=== PATIENT | male | born 1930 | race Caucasian/White ===

== ENCOUNTER 2016-12-14 12:57 | Inpatient (IN) ==
--- NOTE | 2016-12-14 13:09 | Emergency Department Note ---
Disposition Clinical Impression: Hypertension Qualifiers: Hypertension type: essential hypertension Qualified Code(s): I10 - Essential ( primary) hypertension TIA (transient ischemic attack) Qualifiers: Transient cerebral ischemia type: unspecified Qualified Code(s): G45.9 - Transient cerebral ischemic attack, unspecified Disposition: Admitted As Inpatient Condition: Good Time of Disposition: 15:48 Neuro HPI - General Chief Complaint: ED Neuro Symptoms/Deficit Stated Complaint: Neuro symptoms, resolved Time Seen by Provider: 12/14/16 13:03 Source: patient Mode of arrival: ambulatory Limitations: no limitations Nursing Notes Reviewed: Yes Vital Signs Reviewed: Yes - History of Present Illness HPI Narrative: 86-year-old who comes in complaining of left hand numbness and weakness that began about 8:30 along with some vision changes on the left. He states he was seen at the NH started feeling better there and then on the way here and he was improved. Onset of Symptoms Date: 12/14/16 Onset of Symptoms Time: 08:30 Timing confirmed by: caregiver Location: left arm, other (Vision) History of same: No Severity: moderate Improves with: time On Anticoagulants: No - Related Data Home Medications: Home Medications Medication Instructions Recorded Confirmed Albuterol Sulfate [Albuterol 2 puff IH QID PRN 09/24/15 12/14/16 Inhaler] Aspirin Enteric Coated [Aspirin EC] 81 mg PO DAILY 09/24/15 12/14/16 Carboxymethylcellulose Sodium 1 drop BOTH EYES QID 09/24/15 12/14/16 [Refresh Plus] Furosemide [Lasix] 10 mg PO DAILY 09/24/15 12/14/16 Insulin Glargine [Lantus] 21 units SQ QAM 09/24/15 12/14/16 Omeprazole [PriLOSEC] 20 mg PO DAILY 09/24/15 12/14/16 Pyridoxine HCl [Vitamin B-6] 50 mg PO DAILY 09/24/15 12/14/16 Terazosin [Hytrin] 2 mg PO HS 09/24/15 12/14/16 Cholecalciferol (D-3) [Vitamin D] 2,000 unit PO DAILY 10/27/15 12/14/16 Methocarbamol [Robaxin] 500 mg PO TID PRN 10/27/15 12/14/16 Nitroglycerin [Nitrostat] 0.4 mg SL Q5M PRN 10/27/15 12/14/16 Polyethylene Glycol 3350 [MiraLAX 17 gm PO DAILY PRN 10/27/15 12/14/16 bowel prep] Albuterol Neb [Proventil Neb] 2.5 mg IH QID PRN 12/14/16 12/14/16 Carbidopa/Levodopa 10 [Sinemet 1 each PO HS 12/14/16 12/14/16 10] Docusate [Colace] 100 mg PO BID 12/14/16 12/14/16 Gabapentin [Neurontin] 400 mg PO BID 12/14/16 12/14/16 Gabapentin [Neurontin] 600 mg PO HS 12/14/16 12/14/16 Isosorbide MONOnitrate [Isosorbide 120 mg PO HS 12/14/16 12/14/16 Mononitrate ER] Lactose-Reduced Food [Ensure Plus] 1 bottle PO DAILY 12/14/16 12/14/16 Losartan Potassium [Cozaar] 50 mg PO DAILY 12/14/16 12/14/16 Metoprolol XL (24 HR) Succ [Toprol 25 mg PO DAILY 12/14/16 12/14/16 XL] Mupirocin [Bactroban Oint] 1 appl TP DAILY 12/14/16 12/14/16 Olodaterol HCl [Striverdi Respimat] 2 puff IH DAILY 12/14/16 12/14/16 Petrolatum,White [Aloe [place]] 1 appl TP BID 12/14/16 12/14/16 Allergies/Adverse Reactions: Allergies Allergy/AdvReac Type Severity Reaction Status Date / Time orphenadrine [From Norflex] Allergy Rash Verified 09/24/15 14:15 ropinirole AdvReac Unknown Verified 12/14/16 16:39 Constitutional: Denies: fever, chills, weakness, weight change Eyes: Denies: eye pain, eye discharge, vision change ENT ED: Denies: ear pain, throat pain, dental pain, hearing loss, epistaxis, congestion, dysphagia Cardiovascular: Denies: chest pain, palpitations, dyspnea on exertion, edema, syncope Respiratory: Denies: cough, dyspnea, wheezes, hemoptysis, stridor Gastrointestinal: Denies: abdominal pain, nausea, vomiting, diarrhea, constipation, hematemesis, melena, hematochezia Genitourinary: Denies: urgency, dysuria, frequency, hematuria Musculoskeletal: Denies: back pain, neck pain, arthralgia, myalgia Integumentary: Denies: rash, abrasion, lesions Neurological: Reports: weakness, numbness. Denies: headache, paresthesias, confusion, abnormal gait, vertigo Psychiatric: Denies: anxiety, depression, suicidal thoughts, homicidal thoughts , auditory hallucinations, visual hallucinations Endocrine: Denies: fatigue Hematological/Lymphatic: Denies: easy bleeding, easy bruising Allergic/Immunologic: Denies: facial swelling, urticaria Past Medical History - Past Medical History Medical history: Reports: COPD, diabetes, hyperlipidemia, hypertension, renal disease Surgical history: Reports: angioplasty/stent, cholecystectomy, pacemaker/AICD, other Psychiatric history: Reports: no psych history - Social History Smoking Status: Former smoker Smokeless Tobacco Status: Yes Alcohol use: Reports: none Drug use: Reports: none Physical Exam - General Limitations: no limitations General appearance: alert, in no apparent distress - Head Head exam: atraumatic, normocephalic, normal inspection - Eye Eye exam: Present: normal appearance, PERRL, EOMI - ENT ENT exam: normal exam, normal oropharynx, mucous membranes moist - Neck Neck exam: Present: normal inspection, full ROM, trachea midline - Chest Chest inspection: Present: normal inspection, symmetric chest wall rise - Respiratory Respiratory exam: Present: normal lung sounds bilaterally - Cardiovascular Cardiovascular exam: Present: regular rate, normal rhythm, normal heart sounds - Abdominal Exam Abdominal exam: Present: soft, Non-Tender. Absent: tenderness, distention, guarding, rebound, rigidity - Extremities Exam Extremities exam: Present: normal inspection, full ROM. Absent: tenderness, pedal edema - Expanded Lower Extremity Exam Neurovascular/Tendon exam: Absent: motor deficit, sensory deficit, tendon deficit Gait: not tested/not observed - Back Exam Back exam: Present: normal inspection, full ROM. Absent: tenderness - Neurological Exam Neurological exam: Present: alert, oriented X3. Absent: motor sensory deficit - Psychiatric Psychiatric exam: Present: normal affect, normal mood - Skin Skin exam: Present: warm, dry, intact, normal color Course - Reevaluation(s) Reevaluation #1: Patient had acute onset left arm weakness and numbness and also left visual changes resolved spontaneously. CT scan shows some chronic changes otherwise nothing acute. Appears to have had a TIA. We will admit. Time: 15:48 - Consultations Consultation #1: Status with Dr. Layne admit. Time: 15:48 Vital Signs Temperature 97.5 F L 12/14/16 13:01 Pulse Rate 61 12/14/16 13:01 Respiratory Rate 18 12/14/16 13:01 Blood Pressure 192/88 12/14/16 13:01 O2 Sat by Pulse Oximetry 98 12/14/16 13:01 Temperature 97.5 F L 12/14/16 13:01 Pulse Rate 62 12/14/16 17:11 Respiratory Rate 16 12/14/16 17:11 Blood Pressure 170/75 12/14/16 17:11 O2 Sat by Pulse Oximetry 96 12/14/16 17:11 Oxygen Delivery Oxygen Delivery Room Air Neuro Symptoms/Deficit - Lab Data Lab results reviewed: Yes I reviewed the patient's lab results. Result diagrams: 12/14/16 13:31 12/14/16 13:31 Lab Results 12/14/16 12/14/16 12/14/16 Range/Units 13:05 13:31 13:31 WBC 7.5 (4.3-11.1) K/mcL RBC 4.13 L (4.19-5.50) M/mcL Hgb 12.4 L (12.9-16.9) g/dL Hct 37.9 (37.5-50.1) % MCV 91.8 (83.0-100.0) fL MCH 30.0 (28.0-33.3) pg MCHC 32.7 (31.6-35.5) g/dL RDW 13.8 (11.5-14.5) % Plt Count 224 (140-400) K/mcL MPV 9.9 (9.4-12.4) fL Immature Gran % 0.7 (0-4) % Seg Neutrophils % 65.2 % Lymphocytes % 24.0 % Monocytes % 7.1 % Eosinophils % 2.1 % Basophils % 0.9 % Neutrophils # 4.9 (1.6-8.9) K/mcL Lymphocytes # 1.8 (0.6-4.6) K/mcL Monocytes # 0.5 (0.0-1.3) K/mcL Eosinophils # 0.2 (0.0-0.6) K/mcL Basophils # 0.1 (0.0-0.2) K/mcL PT 11.6 (9.4-12.1) Seconds INR 1.1 APTT 29.3 (26.0-36.0) Seconds Sodium (136-145) mEq/L Potassium (3.5-4.5) mEq/L Chloride (98-109) mEq/L Carbon Dioxide (19-29) mEq/L BUN (8-26) mg/dL Creatinine (0.72-1.25) mg/dL Est GFR ( Amer) (> 60) Est GFR (Non-Af Amer) (> 60) BUN/Creatinine Ratio (6-26) Glucose (70-99) mg/dL POC Glucose 196 H (58-89) Calculated Osmolality (280-300) Calcium (8.6-10.8) mg/dL Troponin I (0-0.03) ng/mL Urine Color (Yellow) Urine Clarity (Clear) Urine pH (5.0-8.0) pH Units Ur Specific [place] (1.010-1.025) Urine Protein (Neg-Trace) mg/dL Urine Glucose (UA) (Normal) mg/dL Urine Ketones (Negative) mg/dL Urine Blood (Negative) Urine Nitrite (Negative) Urine Bilirubin (Negative) Urine Urobilinogen (Normal) mg/dL Ur Leukocyte Esterase (Negative) Urine Microscopic RBC (0-3) per hpf Urine Microscopic WBC (0-3) per hpf Ur Squamous Epith Cells (None-Few) per lpf Urine Bacteria (None-Few) per hpf Hyaline Casts (None-Few) per lpf Ur Culture Indicated? (NO) 12/14/16 12/14/16 12/14/16 Range/Units 13:31 13:31 14:55 WBC (4.3-11.1) K/mcL RBC (4.19-5.50) M/mcL Hgb (12.9-16.9) g/dL Hct (37.5-50.1) % MCV (83.0-100.0) fL MCH (28.0-33.3) pg MCHC (31.6-35.5) g/dL RDW (11.5-14.5) % Plt Count (140-400) K/mcL MPV (9.4-12.4) fL Immature Gran % (0-4) % Seg Neutrophils % % Lymphocytes % % Monocytes % % Eosinophils % % Basophils % % Neutrophils # (1.6-8.9) K/mcL Lymphocytes # (0.6-4.6) K/mcL Monocytes # (0.0-1.3) K/mcL Eosinophils # (0.0-0.6) K/mcL Basophils # (0.0-0.2) K/mcL PT (9.4-12.1) Seconds INR APTT (26.0-36.0) Seconds Sodium 135 L (136-145) mEq/L Potassium 5.0 H (3.5-4.5) mEq/L Chloride 104 (98-109) mEq/L Carbon Dioxide 24 (19-29) mEq/L BUN 32 H (8-26) mg/dL Creatinine 2.39 H (0.72-1.25) mg/dL Est GFR ( Amer) 31 L (> 60) Est GFR (Non-Af Amer) 26 L (> 60) BUN/Creatinine Ratio 13 (6-26) Glucose 192 H (70-99) mg/dL POC Glucose (58-89) Calculated Osmolality 292 (280-300) Calcium 8.9 (8.6-10.8) mg/dL Troponin I 0.03 (0-0.03) ng/mL Urine Color Yellow (Yellow) Urine Clarity Clear (Clear) Urine pH 6.0 (5.0-8.0) pH Units Ur Specific [place] 1.010 (1.010-1.025) Urine Protein Trace (Neg-Trace) mg/dL Urine Glucose (UA) 100 H (Normal) mg/dL Urine Ketones Negative (Negative) mg/dL Urine Blood Negative (Negative) Urine Nitrite Negative (Negative) Urine Bilirubin Negative (Negative) Urine Urobilinogen Normal (Normal) mg/dL Ur Leukocyte Esterase Negative (Negative) Urine Microscopic RBC 0-3 (0-3) per hpf Urine Microscopic WBC 0-3 (0-3) per hpf Ur Squamous Epith Cells Moderate H (None-Few) per lpf Urine Bacteria None Seen (None-Few) per hpf Hyaline Casts None Seen (None-Few) per lpf Ur Culture Indicated? NO (NO) - Radiology Data Radiology results reviewed: Yes I reviewed the patient's radiology results. Chest X-Ray 12/14/16 13:05 IMPRESSION: No acute process. Mild pulmonary vascular congestion. D/ / 12/14/2016 13:35:21 Eri Malik MD / Liv Morris Interpreting Provider: Eri Malik MD Head CT 12/14/16 13:50 IMPRESSION: 1. Global atrophy with chronic small vessel ischemic changes and intracranial atherosclerosis. 2. No acute intracranial abnormality. D/ / 12/14/2016 15:23:48 Steven Juárez MD / Liv Morris Interpreting Provider: Steven Juárez MD - EKG Data EKG attestation: Yes I reviewed and interpreted this EKG. EKG results narrative: Paced rhythm NIH Stroke Scale - Level of Consciousness LOC: Alert - LOC Questions LOC Questions: Answers both correctly - LOC Commands LOC Commands: Performs both correctly - Best Gaze Best Gaze: Normal - Visual Visual: No visual loss - Facial Palsy Facial Palsy: Normal - Motor Arms Motor Arm-Left: No drift for 10 seconds Motor Arm-Right: No drift for 10 seconds - Motor Legs Motor Leg-Left: No drift for 5 seconds Motor Leg-Right: No drift for 5 seconds - Limb Ataxia Limb Ataxia: Normal, No Ataxia - Sensory Sensory: Normal - Best Language Best Language: No aphasia - Dysarthria Dysarthria: Normal - Extinction and Inattention Extinction and Inattention: Normal - NIHSS Total Score NIHSS Total Score: 0 TPA Checklist - Eligibilty for IV tPA 1. LKW equal to or less than 4.5 hours be before treatment: No - LKW: 3-4.5 hrs Add. Contraindications Patient/family understanding: The patient/family members have been counseled and understood the risk, benefit , and alternatives of treatment.
[2016-12-14 13:39] LABS: Basophils # 0.1 K/mcL (0.0-0.2); Basophils % 0.9 %; Eosinophils # 0.2 K/mcL (0.0-0.6); Eosinophils % 2.1 %; Hematocrit 37.9 % (37.5-50.1); Hemoglobin 12.4 g/dL (12.9-16.9); Immature Granulocytes % 0.7 % (0-4); Lymphocytes # 1.8 K/mcL (0.6-4.6); Mean Corpuscular HGB Conc 32.7 g/dL (31.6-35.5); Mean Corpuscular Volume 91.8 fL (83.0-100.0); Mean Platelet Volume 9.9 fL (9.4-12.4); Monocytes # 0.5 K/mcL (0.0-1.3); Monocytes % 7.1 %; Neutrophils # 4.9 K/mcL (1.6-8.9); Platelet Count 224 K/mcL (140-400); Red Blood Count 4.13 M/mcL (4.19-5.50); Red Cell Distribution Width 13.8 % (11.5-14.5); Segmented Neutrophils % 65.2 %
[2016-12-14 13:49] LABS: INR 1.1; Prothrombin Time 11.6 Seconds (9.4-12.1)
[2016-12-14 13:50] LABS: Calcium 8.9 mg/dL (8.6-10.8)
[2016-12-14 13:52] LABS: Activated Partial Thrombo Time 29.3 Seconds (26.0-36.0)
[2016-12-14 15:02] LABS: Bilirubin,Urine Negative (Negative); Blood,Urine Negative (Negative); Clarity,Urine Clear (Clear); Color,Urine Yellow (Yellow); Glucose,Urine (UA) 100 mg/dL (Normal); Ketones,Urine Negative (Negative); Leukocyte Esterase,Urine Negative (Negative); Nitrite,Urine Negative (Negative); Protein,Urine Trace mg/dL (Neg-Trace); Urobilinogen,Urine Normal (Normal)
[2016-12-14 15:04] LABS: Bacteria,Urine None Seen per hpf (None-Few); Hyaline Casts,Urine None Seen per lpf (None-Few); RBC,Urine 0-3 per hpf (0-3); Squamous Epithelial Cell,Urine Moderate per lpf (None-Few); WBC,Urine 0-3 per hpf (0-3)
[2016-12-14] MEDS ORDERED: Ondansetron 4 MG/2 ML VIAL IVP PRN (17:27)
[2016-12-14] MEDS ORDERED: Acetaminophen 325 MG TABLET PO PRN (17:27)
[2016-12-14] MEDS ORDERED: Naloxone 0.4 MG/ML INJ IVP PRN (17:27)
[2016-12-14] MEDS ORDERED: Polyethylene Glycol 3350 255 GM POWDER PO PRN (17:31)
[2016-12-14] MEDS ORDERED: Dextrose Gel 15 GM PO PRN ×2 (17:36)
[2016-12-14] MEDS ORDERED: *HR* Dextrose 50 % in Water (Syg) 50 ML SYRINGE IVP PRN (17:36)
[2016-12-14] MEDS ORDERED: D5% in Water 1,000 ML IV PRN (17:36)
[2016-12-14] MEDS ORDERED: traMADol 50 MG TABLET PO STA (17:44)
[2016-12-14] MEDS ORDERED: Furosemide 20 MG/2 ML VIAL IVP ONE (17:58)
--- NOTE | 2016-12-14 18:00 | Internal Med History&Physical ---
Date of Encounter: 12/14/16 Time of Encounter: 15:30 Assessment and Plan (1) TIA (transient ischemic attack) Current visit: Yes Status: Acute Around 8:30 AM, he was trying to reach his wheelchair with his left arm when he suddenly noticed some numbness and tingling as on his left hand followed by left arm weakness. He reported that his left arm just went numb and he couldn' t move it. His left arm weakness lasted for about 10 minutes and never came back. By the time he got to [place] ER he was completely asymptomatic. Patient risk due to history of bilateral carotid endarterectomy. CT of the head revealed atrophy with chronic small vessel ischemic changes and intracranial atherosclerosis. Acute intracranial abnormality. EKG shows ventricular paced rhythm, rate 72. Troponin 0.02. Echocardiogram in February 2016 revealed LVEF 50%, moderate diastolic dysfunction, severe pulmonary hypertension. In our ED, blood pressure was 192/88. Patient is not a candidate for MRI of brain due to pacemaker. He has CKD stage IV and cannot undergo CTA of head and neck. Continue library monitor. Neuro assessment. Aspirin. Statin. Check echocardiogram. Check Doppler of carotids. IV hydralazine if Blood pressure above 220/110 Qualifiers: Transient cerebral ischemia type: unspecified Qualified Code(s): G45.9 - Transient cerebral ischemic attack, unspecified (2) Hypertension Current visit: Yes Status: Acute Due to TIA, will address blood pressure is more than 220/110. Qualifiers: Hypertension type: essential hypertension Qualified Code(s): I10 - Essential (primary) hypertension (3) Diastolic heart failure Current visit: Yes Status: Acute Acute diastolic heart failure. Chest the right; pulmonary vascular congestion. Start IV furosemide. Fluid restriction. Daily weight. Continue home dose of losartan and metoprolol. Qualifiers: Heart failure chronicity: acute Qualified Code(s): I50.31 - Acute diastolic (congestive) heart failure (4) COPD (chronic obstructive pulmonary disease) Current visit: Yes Status: Acute Nebs as needed. Qualifiers: COPD type: unspecified COPD Qualified Code(s): J44.9 - Chronic obstructive pulmonary disease, unspecified (5) CKD (chronic kidney disease) stage 4, GFR 15-29 ml/min Current visit: Yes Status: Chronic At baseline. Avoid nephrotoxic agents. Close monitoring. Continue home dose of losartan. (6) Diabetes Current visit: No Status: Acute Insulin sliding scale. Diabetic diet. Levemir in the morning. Qualifiers: Diabetes mellitus type: type 2 Diabetes mellitus complication status: with circulatory complication Diabetes mellitus complication detail: with peripheral angiopathy with gangrene Diabetes mellitus terminal carman insulin use: with terminal carman use Qualified Code(s): E11.52 - Type 2 diabetes mellitus with diabetic peripheral angiopathy with gangrene; Z79.4 - longterm (current) use of insulin Internal Medicine - H&P: HPI Chief complaint: left arm numbness and tingliness at 8.30 am Admitted From: Home Plans for Post Hospital Care: Home History of present illness: Mr. Fletcher is a 86 year old male with past medical history of diabetes mellitus , CHF, hypertension, status post pacemaker implantation, CK 84, COPD, and thoracic aortic aneurysm. She at home and uses a wheelchair most of the time due to back problems. Around 8:30 AM, he was trying to reach his wheelchair with his left arm when he suddenly noticed some numbness and tingling as on his left hand followed by left arm weakness. He reported that his left arm just went numb and he couldn't move it. His left arm weakness lasted for about 10 minutes and never came back. By the time he got to [place] ER, he was completely asymptomatic. WBC 7.5. Hemoglobin 12.6. Platelets 229. Troponin 0.02. INR 1. EKG shows ventricular paced rhythm, rate 72. In our ED, blood pressure was 192/88. He was asymptomatic. No chest pain. No lightheadedness. No headache. No speech problems. No other focal deficit. No palpitations. No syncope. No abdominal pain. No lower extremity swelling. No bleeding. No urinary issues. He was transferred to our hospital for further management. Past Med Surg Social Fam HX - Past Medical History Medical history: COPD, diabetes, hyperlipidemia, hypertension, renal disease Psychiatric history: no psych history - Past Surgical History Surgical History: angioplasty/stent, cholecystectomy, pacemaker/AICD, other - Social History Smoking Status: Former smoker Smokeless Tobacco Status: Yes Alcohol use: none Drug use: none - Family History Father Living Status: Hx Family Cardiac Disorders: No Hx Family Respiratory Disorders: No Hx Family Cancer: No Hx Family GI Disorders: No Hx Family Endocrine Disorder: Yes Hx Family Neuromuscular Disorders: No Hx Family Neurologic Disorders: No Hx Family HEENT Disorders: No Hx Family Autoimmune Disorders: No Internal Medicine - H&P: Meds Albuterol Sulfate [Albuterol Inhaler] 2 puff IH QID PRN 09/24/15 [History] Aspirin Enteric Coated [Aspirin EC] 81 mg PO DAILY 09/24/15 [History] Carboxymethylcellulose Sodium [Refresh Plus] 1 drop BOTH EYES QID 09/24/15 [ History] Furosemide [Lasix] 10 mg PO DAILY 09/24/15 [History] Insulin Glargine [Lantus] 21 units SQ QAM 09/24/15 [History] Omeprazole [PriLOSEC] 20 mg PO DAILY 09/24/15 [History] Pyridoxine HCl [Vitamin B-6] 50 mg PO DAILY 09/24/15 [History] Terazosin [Hytrin] 2 mg PO HS 09/24/15 [History] Cholecalciferol (D-3) [Vitamin D] 2,000 unit PO DAILY 10/27/15 [History] Methocarbamol [Robaxin] 500 mg PO TID PRN 10/27/15 [History] Nitroglycerin [Nitrostat] 0.4 mg SL Q5M PRN 10/27/15 [History] Polyethylene Glycol 3350 [MiraLAX bowel prep] 17 gm PO DAILY PRN 10/27/15 [ History] Albuterol Neb [Proventil Neb] 2.5 mg IH QID PRN 12/14/16 [History] Carbidopa/Levodopa 10/100 [Sinemet 10/100] 1 each PO HS 12/14/16 [History] Docusate [Colace] 100 mg PO BID 12/14/16 [History] Gabapentin [Neurontin] 400 mg PO BID 12/14/16 [History] Gabapentin [Neurontin] 600 mg PO HS 12/14/16 [History] Isosorbide MONOnitrate [Isosorbide Mononitrate ER] 120 mg PO HS 12/14/16 [ History] Lactose-Reduced Food [Ensure Plus] 1 bottle PO DAILY 12/14/16 [History] Losartan Potassium [Cozaar] 50 mg PO DAILY 12/14/16 [History] Metoprolol XL (24 HR) Succ [Toprol XL] 25 mg PO DAILY 12/14/16 [History] Mupirocin [Bactroban Oint] 1 appl TP DAILY 12/14/16 [History] Olodaterol HCl [Striverdi Respimat] 2 puff IH DAILY 12/14/16 [History] Petrolatum,White [Aloe [place]] 1 appl TP BID 12/14/16 [History] Allergies orphenadrine [From Norflex] Allergy (Verified 09/24/15 14:15) Rash ropinirole Adverse Reaction (Verified 12/14/16 16:39) Unknown Per list from [facility] PM: A 10-system review of systems was performed and is negative for pertinent findings except as documented above in the HPI. - Constitutional Vitals: Temp Pulse Resp BP Pulse Ox 97.5 F L 62 16 170/75 96 12/14/16 13:01 12/14/16 17:11 12/14/16 17:27 12/14/16 17:27 12/14/16 17:11 General appearance: Present: A&O X 3, pleasant, no acute distress, answers questions appropriately - Eye Eye exam: Present: PERRL, sclera anicteric - Neck Neck exam general surgery: Present: supple, trachea midline. Absent: lymphadenopathy - Respiratory Respiratory exam: Present: rales (in bases) - Cardiovascular Cardiovascular exam: Present: RRR - GI/Abdominal GI/Abdominal exam: Present: normal bowel sounds, soft. Absent: distended, tenderness - Extremities Exam Extremities exam: Present: pedal edema - Back Exam Back exam: Absent: CVA tenderness (L), CVA tenderness (R) - Neurological Exam Neurological exam: Present: alert, oriented X3. Absent: facial droop, speech deficit - Skin Skin exam: Absent: rash Internal Med - H&P Results - Labs CBC & Chem 7: 12/14/16 13:31 12/14/16 13:31
[2016-12-14] MEDS: Insulin LISPRO 300 UNITS/3 ML VIAL SQ SCH (20:21)
[2016-12-14] MEDS: Gabapentin 400 MG CAPSULE PO SCH (20:22)
[2016-12-15 05:21] LABS: Basophils # 0.1 K/mcL (0.0-0.2); Basophils % 1.5 %; Eosinophils # 0.2 K/mcL (0.0-0.6); Eosinophils % 3.3 %; Hematocrit 38.1 % (37.5-50.1); Hemoglobin 12.5 g/dL (12.9-16.9); Immature Granulocytes % 0.3 % (0-4); Lymphocytes # 2.6 K/mcL (0.6-4.6); Lymphocytes % 35.2 %; Mean Corpuscular HGB Conc 32.8 g/dL (31.6-35.5); Mean Corpuscular Hemoglobin 29.3 pg (28.0-33.3); Mean Corpuscular Volume 89.4 fL (83.0-100.0); Mean Platelet Volume 10.3 fL (9.4-12.4); Monocytes # 0.7 K/mcL (0.0-1.3); Monocytes % 9.1 %; Neutrophils # 3.7 K/mcL (1.6-8.9); Platelet Count 241 K/mcL (140-400); Red Blood Count 4.26 M/mcL (4.19-5.50); Red Cell Distribution Width 13.7 % (11.5-14.5); Segmented Neutrophils % 50.6 %
[2016-12-15 05:32] LABS: Albumin 3.1 g/dL (3.5-5.0); Albumin/Globulin Ratio 0.8 (1.1-2.2); Bilirubin,Total 0.3 mg/dL (0.2-1.2); Chol/HDL Ratio 6.9 (0-4.9); Magnesium 1.9 mg/dL (1.6-2.6); Phosphorous 4.6 mg/dL (2.3-4.7); Potassium 4.2 mEq/L (3.5-4.5); Total Protein 7.1 g/dL (6.0-8.3)
[2016-12-15] MEDS ORDERED: Furosemide 20 MG TABLET PO SCH (09:00)
[2016-12-15] MEDS: Gabapentin 400 MG CAPSULE PO SCH ×2 (09:08→16:58)
[2016-12-15] MEDS: Isosorbide MONOnitrate (24 HR) 30 MG TAB.ER.24H PO SCH (09:08)
[2016-12-15] MEDS: Insulin LISPRO 300 UNITS/3 ML VIAL SQ SCH ×5 (09:09→21:01)
[2016-12-15] MEDS: Aspirin Enteric Coated 81 MG Tablet PO SCH (09:09)
[2016-12-15] MEDS: Metoprolol XL (24 HR) Succ 25 MG TAB.ER.24H PO SCH (09:09)
[2016-12-15] MEDS: Insulin DETEMIR 100 UNIT/ML X5UNITS SQ SCH (09:10)
[2016-12-15] MEDS: Albuterol 2.5 MG/3 ML NEBULIZER IH PRN (13:52)
[2016-12-15] MEDS: Cholecalciferol (D-3) 1,000 UNIT TABLET PO SCH (14:12)
[2016-12-15] MEDS: Methocarbamol 500 MG TABLET PO PRN ×2 (14:13→22:35)
[2016-12-15] MEDS: traMADol 50 MG TABLET PO PRN ×2 (14:13→22:35)
--- NOTE | 2016-12-15 17:38 | Internal Med Progress Note ---
Date of Encounter: 12/15/16 Time of Encounter: 09:00 - Assessment and plan (1) TIA (transient ischemic attack) Current Visit: Yes Status: Acute Assessment and plan: Patient has transient left hand weakness, no slurred speech, no leg weakness. Symptoms resolved after 10 minutes, CT head negative for hemorrhage/acute infarct. Consider TIA. 1. Continuous nuclear monitoring technician to rule out occult A. fib. 2. Echo and duplex carotid to rule out aortic stenosis and carotid stenosis. 3. Place patient on aspirin and atorvastatin. 4. Closely monitor vitals and neurology symptoms. Avoid hypotension. 5. Patient has high risk of future stroke, discussed with family, patient's daughter verbalized understanding. Qualifiers: Transient cerebral ischemia type: unspecified Qualified Code(s): G45.9 - Transient cerebral ischemic attack, unspecified (2) COPD (chronic obstructive pulmonary disease) Current Visit: Yes Status: Acute Assessment and plan: Stable, continue home medication Qualifiers: COPD type: emphysema Emphysema type: unspecified Qualified Code(s): J43.9 - Emphysema, unspecified (3) Diastolic heart failure Current Visit: Yes Status: Acute Assessment and plan: Patient was given 20 units Lasix upon admission. We will continue his home medication Lasix 10 mg by mouth daily. Qualifiers: Heart failure chronicity: chronic Qualified Code(s): I50.32 - Chronic diastolic (congestive) heart failure (4) Hypertension Current Visit: Yes Status: Acute Assessment and plan: Blood pressure is high. Will try to slightly bring it down a little bit, goal is systolic blood pressure 150-160. Add amlodipine 5 mg by mouth daily Qualifiers: Hypertension type: essential hypertension Qualified Code(s): I10 - Essential (primary) hypertension (5) CKD (chronic kidney disease) stage 4, GFR 15-29 ml/min Current Visit: Yes Status: Chronic Assessment and plan: Chronic and stable (6) DVT prophylaxis Current Visit: No Status: Acute (7) Diabetes Current Visit: No Status: Acute Assessment and plan: Place patient on basal and sliding scale insulin. Closely monitor glucose level , avoid hypo or hyperglycemia Qualifiers: Diabetes mellitus type: type 2 Diabetes mellitus complication status: with circulatory complication Diabetes mellitus complication detail: with peripheral angiopathy with gangrene Diabetes mellitus snf insulin use: with religious assistant use Qualified Code(s): E11.52 - Type 2 diabetes mellitus with diabetic peripheral angiopathy with gangrene; Z79.4 - detention (current) use of insulin - Time Spent With Patient 25 - 35 minutes - Subjective Interval history: Patient is a 86-year-old male admitted for TIA. His past medical history is significant for hypertension, systolic CHF, COPD, CKD, diabetes, S/P pacemaker placement, thoracic aortic aneurysm. Patient was seen and examined, he is awake alert, oriented 3. Patient told me he has left hand weakness, which lasted about 10 minutes and resolved spontaneously. He denies chest pain, shortness of breath, headache, or lightheadedness or dizziness, nausea or vomiting. Vital generally stable except high blood pressure. Since patient has no neurology deficit now, we will gentally and gradually treated hypertension, we will add amlodipine 5 mg by mouth daily and closely monitor blood pressure level, goal is SBP 150-160. - Constitutional Vitals: Temp Pulse Resp BP Pulse Ox 98.1 F 59 15 175/75 96 12/15/16 17:21 12/15/16 17:21 12/15/16 17:21 12/15/16 17:21 12/15/16 17:21 General appearance: Present: A&O X 3, pleasant, no acute distress, answers questions appropriately - Head Head exam: Present: atraumatic, normocephalic - Eye Eye exam: Present: PERRL, conjuntiva pink, sclera anicteric Pupils: Present: PERRL - Neck Neck exam general surgery: Present: supple, trachea midline. Absent: lymphadenopathy - Respiratory Respiratory exam: Present: CTAB. Absent: accessory muscle use, rales, rhonchi, wheezes - Cardiovascular Cardiovascular exam: Present: RRR, +S1, +S2. Absent: diastolic murmur, gallop, rubs, systolic murmur - GI/Abdominal GI/Abdominal exam: Present: normal bowel sounds, soft, no peritoneal signs. Absent: distended, tenderness - Extremities Exam Extremities exam: Present: warm, radial pulses palpable and symetrical. Absent : calf tenderness, cyanotic, pedal edema - Neurological Exam Neurological exam: Present: CN II-XII intact, oriented X3, no focal deficits. Absent: pronater drift, facial droop, speech deficit - Skin Skin exam: Present: dry, intact Internal Medicine: Result - Labs CBC & Chem 7: 12/15/16 04:29 12/15/16 04:29 Labs: Short CBC 12/15/16 Range/Units 04:29 WBC 7.4 (4.3-11.1) K/mcL Hgb 12.5 L (12.9-16.9) g/dL Hct 38.1 (37.5-50.1) % Plt Count 241 (140-400) K/mcL Neutrophils # 3.7 (1.6-8.9) K/mcL BMP 12/15/16 04:29 Sodium 138 Potassium 4.2 Chloride 104 Carbon Dioxide 23 BUN 39 H Creatinine 2.23 H Glucose 98 Calcium 9.0 Cardiac Enzymes 12/14/16 12/15/16 Range/Units 20:17 04:29 Troponin I 0.02 0.03 (0-0.03) ng/mL Liver Function 12/15/16 Range/Units 04:29 Total Bilirubin 0.3 (0.2-1.2) mg/dL AST 18 (5-34) Units/L ALT 6 (0-55) Units/L Alkaline Phosphatase 65 (38-126) Units/L Albumin 3.1 L (3.5-5.0) g/dL - ABG Interpretation ABG results: PT/INR, D-dimer PT 11.6 Seconds (9.4-12.1) 12/14/16 13:31 Consult Discharge Plan - Plan [facility]: [facility] Care Provider[facility] -
[2016-12-15] MEDS ORDERED: amLODIPine 5 MG TABLET PO SCH (17:45)
[2016-12-15] MEDS ORDERED: NON-FORMULARY MEDICATION 1 EACH EACH (Isosorbide Mononitrate [Isosorbide Mononitrate Er] 1 PO SCH (21:00)
[2016-12-15] MEDS ORDERED: Gabapentin 300 MG CAPSULE PO SCH (21:00)
[2016-12-16] MEDS: Albuterol 2.5 MG/3 ML NEBULIZER IH PRN (04:49)
[2016-12-16] MEDS ORDERED: amLODIPine 5 MG TABLET PO SCH (07:52)
--- NOTE | 2016-12-16 08:15 | ECHO - Doppler Report ---
Echo with Saline Contrast Name: Jonathan Fletcher Date of Study: 12/15/2016 Date: 1930 Ht: 71.0 in Medical Record#: [id number] Age: 86 Wt: 181.0 lb Gender: Male BSA: 2.02 Order #: [id number] Location: [facility] Room #: [id number] Reading Physician: Jose Denis MD, [facility] Meter/Relay Craftsman: Maame Barahona [facility] Ordering Physician: Deepak Bergman DO Primary Physician: [facility] Indications: Chest pain Impressions: Low-normal left ventricular systolic function, LVEF 50%. Mild concentric left ventricular hypertrophy. Moderate left ventricular diastolic dysfunction. Right ventricle was not well visualized. Appears grossly normal in size and function. No significant valvular dysfunction. Unable to estimate RVSP due to lack of TR jet. No evidence of intracardiac shunting with agitated saline contrast. Left Ventricular Wall Motion: Rest Echo Findings All wall segments showed normal motion. Findings: Study Quality * Suboptimal echo windows. ECG Findings * Sinus rhythm with BBB. Left Ventricle * Low-normal left ventricular systolic function, LVEF 50%. * Normal LV chamber size. * Mild concentric left ventricular hypertrophy. * Moderate left ventricular diastolic dysfunction. Right Ventricle * Right ventricle was not well visualized. Appears grossly normal in size and function. Left Atrium * Normal left atrial size. Right Atrium * Normal right atrial size. Interatrial Septum * No evidence of intracardiac shunting with agitated saline contrast. Aorta * Normally sized aortic root. Pericardium * There is a trivial pericardial effusion present. IVC * The IVC was not visualized. Aortic Valve * Trileaflet aortic valve. * Mildly sclerotic aortic valve leaflets. * No aortic stenosis. * No aortic regurgitation. Mitral Valve * Mild mitral annular calcification * No mitral stenosis. * Trace mitral regurgitation. Tricuspid Valve * Tricuspid valve not well visualized. * No tricuspid stenosis. * Trace tricuspid regurgitation. * Unable to estimate RVSP due to lack of TR jet. Pulmonic Valve * Pulmonic valve not well visualized. * No pulmonic stenosis. * No pulmonic regurgitation. History Hypertension Diabetes Hypercholesteremia Pacer/ICD Implant 03/16/2016 a Previous Echo was performed. Measurements: BP: 118/ 63 2D Normal Values RVIDd: 2.63 cm IVSd: 1.24 cm 0.6 - 1.0 cm LVIDd: 4.60 cm 3.7 - 5.6 cm LVPWd: 1.28 cm 0.6 - 1.1 cm LVIDs: 3.20 cm 1.5 - 3.6 cm AO: 2.80 cm < 4.0 cm LA volume: 55 Mitral Valve Peak E:.83 m/sec Peak A:.48 m/sec E/A Ratio:1.7 Peak E' Lat Mike:6.96 cm/s Peak E' Med Mike:5.59 cm/s E/E' Lat Ratio:11.9 E/E' Med Ratio:14.9 Updated by Jose Denis MD, FACC on 12/16/2016 8:07:51 AM electronically signed on 12/16/2016 8:09:14 AM with status of Final Wall Motion Glass: 1=Normal, 2=Hypokinesis, 3=Akinesis, 4=Dyskinesis, 5=Aneurysmal, 6=Hyperkinetic, X=Not Visualized (Blank)=Missing
[2016-12-16] MEDS: Isosorbide MONOnitrate (24 HR) 30 MG TAB.ER.24H PO SCH (08:39)
[2016-12-16] MEDS: Aspirin Enteric Coated 81 MG Tablet PO SCH (08:40)
[2016-12-16] MEDS: Methocarbamol 500 MG TABLET PO PRN (08:40)
[2016-12-16] MEDS: Metoprolol XL (24 HR) Succ 25 MG TAB.ER.24H PO SCH (08:40)
[2016-12-16] MEDS: traMADol 50 MG TABLET PO PRN (08:40)
[2016-12-16] MEDS: Insulin LISPRO 300 UNITS/3 ML VIAL SQ SCH ×2 (08:41→13:21)
[2016-12-16] MEDS: Cholecalciferol (D-3) 1,000 UNIT TABLET PO SCH (08:41)
[2016-12-16] MEDS: Insulin DETEMIR 100 UNIT/ML X5UNITS SQ SCH (08:41)
[2016-12-16] MEDS: Gabapentin 400 MG CAPSULE PO SCH (08:41)
[2016-12-16] MEDS ORDERED: Furosemide 20 MG TABLET PO SCH (09:00)
[2016-12-16] MEDS ORDERED: NON-FORMULARY MEDICATION 1 EACH EACH (Lactose-Reduced Food [Ensure Plus] 1 BOTTLE) PO SCH (09:00)
[2016-12-16 11:57] VITALS: BP 165/76
--- NOTE | 2016-12-16 12:36 | General Surgery Consult Note ---
<Oskar Wasserman - Last Filed: 12/16/16 13:16> Date of Encounter: 12/16/16 Time of Encounter: 12:20 Assessment and Plan (1) TIA (transient ischemic attack) Status: Acute In the setting of carotid artery disease with carotid artery ultrasound demonstrating: Right Common carotid and bifurcation notes nonstenotic plaque, Proximal ICA appears to have 60-79% stenosis, Mid ICA 40-59% Left bifurcation noted calcified nonstenotic plaque, and proximal ICA notes 40- 59% stenosis. Asymptomatic at this time. At this time the patient will be started on Plavix and recommended to continue his daily aspirin. Will be seen as an outpatient with Dr. Bacon on for outpatient procedure planning. Surgery will sign off at this time, thank you for involving us in this patient' s care, please feel free to contact us with any questions. Qualifiers: Transient cerebral ischemia type: unspecified Qualified Code(s): G45.9 - Transient cerebral ischemic attack, unspecified (2) COPD (chronic obstructive pulmonary disease) Status: Acute Management per medicine team. Qualifiers: COPD type: emphysema Emphysema type: unspecified Qualified Code(s): J43.9 - Emphysema, unspecified (3) Diastolic heart failure Status: Acute Management per medicine team. On IV furosemide. Fluid restriction and continue home medications of losartan and metoprolol. Qualifiers: Heart failure chronicity: chronic Qualified Code(s): I50.32 - Chronic diastolic (congestive) heart failure (4) Hypertension Status: Acute Management per medicine team. With TIA will address blood pressure only if it is above 220/110. Qualifiers: Hypertension type: essential hypertension Qualified Code(s): I10 - Essential (primary) hypertension (5) CKD (chronic kidney disease) stage 4, GFR 15-29 ml/min Status: Chronic Avoid nephrotoxic agents. (6) Diabetes Status: Acute Insulin sliding scale. Management per medicine team. Qualifiers: Diabetes mellitus type: type 2 Diabetes mellitus complication status: with circulatory complication Diabetes mellitus complication detail: with peripheral angiopathy with gangrene Diabetes mellitus shelter insulin use: with shelter use Qualified Code(s): E11.52 - Type 2 diabetes mellitus with diabetic peripheral angiopathy with gangrene; Z79.4 - intermediate (current) use of insulin History of Present Illness Consult date: 12/16/16 Reason for consult: other (Carotid artery stenosis) Requesting physician: Yue Camara History of present illness: This is a 86 year old male who was transferred to [facility] from the [place] ER for TIA. On the morning of 12/14 he had symptoms of weakness of his left arm with numbness that lasted for approximately 10 minutes. He states that during that time he was unable to move his left arm and felt a pain in his back between his shoulder blades as well has had some chest tightness. He denies ever having symptoms like that before. As part of his work up at [facility] he underwent carotid ultrasound which showed: Right Common carotid and bifurcation notes nonstenotic plaque, Proximal ICA appears to have 60-79% stenosis, Mid ICA 40-59%. And left bifurcation noted calcified nonstenotic plaque, and proximal ICA notes 40-59% stenosis. The patient has a history of right carotid artery endarterectomy and additional vascular history of left common iliac artery stents x2 and right superficial femoral artery ballon angioplasty 2012. The patient is asymptomatic at this time and denies any recurrence of his symptoms. Past Med Surg Social Fam HX - Past Medical History Medical history: COPD, diabetes, hyperlipidemia, hypertension, renal disease Psychiatric history: no psych history - Past Surgical History Surgical History: angioplasty/stent, cholecystectomy, pacemaker/AICD, other ( right sided endarterectomy) - Social History Smoking Status: Former smoker Smokeless Tobacco Status: No Alcohol use: none Drug use: none - Family History Father Living Status: Hx Family Cardiac Disorders: No Hx Family Respiratory Disorders: No Hx Family Cancer: No Hx Family GI Disorders: No Hx Family Endocrine Disorder: Yes Hx Family Neuromuscular Disorders: No Hx Family Neurologic Disorders: No Hx Family HEENT Disorders: No Hx Family Autoimmune Disorders: No Medications and Allergies Albuterol Sulfate [Albuterol Inhaler] 2 puff IH QID PRN 09/24/15 [History] Carboxymethylcellulose Sodium [Refresh Plus] 1 drop BOTH EYES QID 09/24/15 [ History] Furosemide [Lasix] 10 mg PO DAILY 09/24/15 [History] Insulin Glargine [Lantus] 21 units SQ QAM 09/24/15 [History] Omeprazole [PriLOSEC] 20 mg PO DAILY 09/24/15 [History] Pyridoxine HCl [Vitamin B-6] 50 mg PO DAILY 09/24/15 [History] Terazosin [Hytrin] 2 mg PO HS 09/24/15 [History] Cholecalciferol (D-3) [Vitamin D] 2,000 unit PO DAILY 10/27/15 [History] Methocarbamol [Robaxin] 500 mg PO TID PRN 10/27/15 [History] Nitroglycerin [Nitrostat] 0.4 mg SL Q5M PRN 10/27/15 [History] Polyethylene Glycol 3350 [MiraLAX bowel prep] 17 gm PO DAILY PRN 10/27/15 [ History] Albuterol Neb [Proventil Neb] 2.5 mg IH QID PRN 12/14/16 [History] Carbidopa/Levodopa [Sinemet ] 1 each PO HS 12/14/16 [History] Docusate [Colace] 100 mg PO BID 12/14/16 [History] Gabapentin [Neurontin] 400 mg PO BID 12/14/16 [History] Gabapentin [Neurontin] 600 mg PO HS 12/14/16 [History] Isosorbide MONOnitrate [Isosorbide Mononitrate ER] 120 mg PO HS 12/14/16 [ History] Lactose-Reduced Food [Ensure Plus] 1 bottle PO DAILY 12/14/16 [History] Losartan Potassium [Cozaar] 50 mg PO DAILY 12/14/16 [History] Metoprolol XL (24 HR) Succ [Toprol Xl] 25 mg PO DAILY 12/14/16 [History] Mupirocin [Bactroban Oint] 1 appl TP DAILY 12/14/16 [History] Olodaterol HCl [Striverdi Respimat] 2 puff IH DAILY 12/14/16 [History] Petrolatum,White [Aloe [place]] 1 appl TP BID 12/14/16 [History] Amlodipine [Norvasc] 10 mg PO DAILY #60 tablet 12/16/16 [Rx] Aspirin Enteric Coated [Aspirin EC] 81 mg PO DAILY #30 tablet. 12/16/16 [Rx] Atorvastatin [Lipitor] 40 mg PO HS #30 tablet 12/16/16 [Rx] Clopidogrel [Plavix] 75 mg PO DAILY #30 tablet 12/16/16 [Rx] Allergies orphenadrine [From Norflex] Allergy (Verified 09/24/15 14:15) Rash ropinirole Adverse Reaction (Verified 12/14/16 16:39) Unknown [facility] Review of Systems All systems PM: A 10-system review of systems was performed and is negative for pertinent findings except as documented above in the HPI. - Constitutional no chills, no fever(s) - EENT Nose, mouth and throat: no dizziness, no dysphagia - Cardiovascular dyspnea on exertion (chronic), other (chest pressure at onset, resolved at this time. ), no palpitations, no rapid heart rate - Respiratory dyspnea on exertion (chronic), no cough, no wheezing - Gastrointestinal no abdominal pain, no nausea, no vomiting - Genitourinary no dysuria General Surgery Exam Initial Vital Signs Temp Pulse Resp BP Pulse Ox 97.5 F L 61 18 192/88 98 12/14/16 13:01 12/14/16 13:01 12/14/16 13:01 12/14/16 13:01 12/14/16 13:01 - General physical appearance well developed, well nourished, no distress - Eyes normal ocular movement - ENT normal mucosa. negative: decreased hearing - Neck trachea midline carotid bruit: right - Respiratory normal respiratory effort, clear to auscultation - Cardiovascular Cardiovascular exam: Present: RRR Additional Comments: trace swelling of the left lower extremity. - Expanded Cardiovascular Exam Peripheral pulses: 2+: Radial (L), Radial (R) - Abdomen Abdomen general surgery: Present: bowel sounds present, soft, non tender - Integumentary Integumentary general surgery: Present: warm and dry, other (well healed scar on the right side of the neck from previous endarterectomy) - Neurologic Present: CN 2-12 grossly intact, normal coordination - Musculoskeletal Present: normal posture - Psychiatric Psychiatric general surgery: Present: appropriate, oriented to person, oriented to place, oriented to time, speech is normal, memory intact Exam Initial Vital Signs Temp Pulse Resp BP Pulse Ox 97.5 F L 61 18 192/88 98 12/14/16 13:01 12/14/16 13:01 12/14/16 13:01 12/14/16 13:01 12/14/16 13:01 Results - Labs 12/15/16 04:29 12/15/16 04:29 Abnormal lab results Hgb 12.5 g/dL (12.9-16.9) L 12/15/16 04:29 BUN 39 mg/dL (8-26) H 12/15/16 04:29 Creatinine 2.23 mg/dL (0.72-1.25) H 12/15/16 04:29 Est GFR ( Amer) 34 (> 60) L 12/15/16 04:29 Est GFR (Non-Af Amer) 28 (> 60) L 12/15/16 04:29 POC Glucose 156 (58-89) H 12/16/16 07:06 B-Natriuretic Peptide 537 pg/mL (0-100) H 12/15/16 04:29 Albumin 3.1 g/dL (3.5-5.0) L 12/15/16 04:29 Globulin 4.0 g/dL (2.4-3.5) H 12/15/16 04:29 Albumin/Globulin Ratio 0.8 (1.1-2.2) L 12/15/16 04:29 Triglycerides 222 mg/dL (< 150) H 12/15/16 04:29 Cholesterol 207 mg/dL (< 200) H 12/15/16 04:29 LDL Cholesterol, Calc 133 mg/dL (0-99) H 12/15/16 04:29 VLDL Cholesterol, Calc 44 mg/dL (< 31) H 12/15/16 04:29 HDL Cholesterol 30 mg/dL (40-59) L 12/15/16 04:29 Cholesterol/HDL Ratio 6.9 (0-4.9) H 12/15/16 04:29 Urine Glucose (UA) 100 mg/dL (Normal) H 12/14/16 14:55 Ur Squamous Epith Cells Moderate per lpf (None-Few) H 12/14/16 14:55 All other labs normal. Consult Discharge Plan - Plan Instructions: Aspirin (By mouth), Amlodipine (By mouth), Atorvastatin (By mouth ), Clopidogrel (By mouth), Transient Ischemic Attack (GEN), Hypertension (GEN) Additional Instructions: Followup with your outpatient appointment with Dr. Bacon on December 22, 2016 at 4:40PM. Continue daily aspirin and begin daily plavix. Referrals: Alcides Bacon MD [Partnered Physician] - 12/22/16 4:40 pm [facility] Provider[facility] - (Please follow up with your primary care provider in 5-7 days) Prescriptions: Amlodipine [Norvasc] 10 mg PO DAILY #60 tablet Aspirin Enteric Coated [Aspirin EC] 81 mg PO DAILY #30 tablet. Atorvastatin [Lipitor] 40 mg PO HS #30 tablet Clopidogrel [Plavix] 75 mg PO DAILY #30 tablet - Attending Attestation I examined this patient and my medical decision-making was reviewed with the COMPUTER FORENSICS ANALYST/PA/Advanced Practice Nurse/Resident Physician. I agree with the documented findings, disposition and treatment plan as described except to the extent set forth below. <Concetta Baconn Elvia - Last Filed: 12/17/16 12:59> Date of Encounter: 12/17/16 Review of Systems All systems PM: A 10-system review of systems was performed and is negative for pertinent findings except as documented above in the HPI. General Surgery Exam Initial Vital Signs Temp Pulse Resp BP Pulse Ox 97.5 F L 61 18 192/88 98 12/14/16 13:01 12/14/16 13:01 12/14/16 13:01 12/14/16 13:01 12/14/16 13:01 Exam Initial Vital Signs Temp Pulse Resp BP Pulse Ox 97.5 F L 61 18 192/88 98 12/14/16 13:01 12/14/16 13:01 12/14/16 13:01 12/14/16 13:01 12/14/16 13:01 Results - Labs 12/15/16 04:29 12/15/16 04:29 Abnormal lab results Hgb 12.5 g/dL (12.9-16.9) L 12/15/16 04:29 BUN 39 mg/dL (8-26) H 12/15/16 04:29 Creatinine 2.23 mg/dL (0.72-1.25) H 12/15/16 04:29 Est GFR ( Amer) 34 (> 60) L 12/15/16 04:29 Est GFR (Non-Af Amer) 28 (> 60) L 12/15/16 04:29 POC Glucose 92 (58-89) H 12/16/16 15:48 B-Natriuretic Peptide 537 pg/mL (0-100) H 12/15/16 04:29 Albumin 3.1 g/dL (3.5-5.0) L 12/15/16 04:29 Globulin 4.0 g/dL (2.4-3.5) H 12/15/16 04:29 Albumin/Globulin Ratio 0.8 (1.1-2.2) L 12/15/16 04:29 Triglycerides 222 mg/dL (< 150) H 12/15/16 04:29 Cholesterol 207 mg/dL (< 200) H 12/15/16 04:29 LDL Cholesterol, Calc 133 mg/dL (0-99) H 12/15/16 04:29 VLDL Cholesterol, Calc 44 mg/dL (< 31) H 12/15/16 04:29 HDL Cholesterol 30 mg/dL (40-59) L 12/15/16 04:29 Cholesterol/HDL Ratio 6.9 (0-4.9) H 12/15/16 04:29 Urine Glucose (UA) 100 mg/dL (Normal) H 12/14/16 14:55 Ur Squamous Epith Cells Moderate per lpf (None-Few) H 12/14/16 14:55 All other labs normal. - Attending Attestation The patient is seen today in conjunction with the resident. The patient had a transient ischemic attack involving the left upper extremity last about 10 minutes. This is not recurrent and does not represent crescendo TIAs. The patient has previously had right carotid endarterectomy. Carotid duplex is suggestive of a 60-79% stenosis. Since this area is symptomatic he may require carotid arteriogram. Since he has chronic renal failure this will require pretreatment. Since he has an overall complex medical condition and advanced age he may select for nonoperative therapy or carotid stent therapy. I will work through these treatment options with him as an outpatient. I recommended aspirin and Plavix. Alcides Bacon MD FACS
--- NOTE | 2016-12-16 15:41 | Discharge Summary ---
Date of Encounter: 12/16/16 Time of Encounter: 13:00 - Discharge Diagnosis (1) TIA (transient ischemic attack) Priority: Primary Status: Acute Qualifiers: Transient cerebral ischemia type: unspecified Qualified Code(s): G45.9 - Transient cerebral ischemic attack, unspecified (2) COPD (chronic obstructive pulmonary disease) Priority: Secondary Status: Acute Qualifiers: COPD type: emphysema Emphysema type: unspecified Qualified Code(s): J43.9 - Emphysema, unspecified (3) Diastolic heart failure Priority: Secondary Status: Acute Qualifiers: Heart failure chronicity: chronic Qualified Code(s): I50.32 - Chronic diastolic (congestive) heart failure (4) Hypertension Priority: Secondary Status: Acute Qualifiers: Hypertension type: essential hypertension Qualified Code(s): I10 - Essential (primary) hypertension (5) CKD (chronic kidney disease) stage 4, GFR 15-29 ml/min Priority: Secondary Status: Chronic (6) DVT prophylaxis Priority: Secondary Status: Acute (7) Diabetes Priority: Secondary Status: Acute Qualifiers: Diabetes mellitus type: type 2 Diabetes mellitus complication status: with circulatory complication Diabetes mellitus complication detail: with peripheral angiopathy with gangrene 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 Atorvastatin [Lipitor] 40 mg PO HS #30 tablet Clopidogrel [Plavix] 75 mg PO DAILY #30 tablet Home Medications: Albuterol Sulfate [Albuterol Inhaler] 2 puff IH QID PRN 09/24/15 [History] Carboxymethylcellulose Sodium [Refresh Plus] 1 drop BOTH EYES QID 09/24/15 [ History] Furosemide [Lasix] 10 mg PO DAILY 09/24/15 [History] Insulin Glargine [Lantus] 21 units SQ QAM 09/24/15 [History] Omeprazole [PriLOSEC] 20 mg PO DAILY 09/24/15 [History] Pyridoxine HCl [Vitamin B-6] 50 mg PO DAILY 09/24/15 [History] Terazosin [Hytrin] 2 mg PO HS 09/24/15 [History] Cholecalciferol (D-3) [Vitamin D] 2,000 unit PO DAILY 10/27/15 [History] Methocarbamol [Robaxin] 500 mg PO TID PRN 10/27/15 [History] Nitroglycerin [Nitrostat] 0.4 mg SL Q5M PRN 10/27/15 [History] Polyethylene Glycol 3350 [MiraLAX bowel prep] 17 gm PO DAILY PRN 10/27/15 [ History] Albuterol Neb [Proventil Neb] 2.5 mg IH QID PRN 12/14/16 [History] Carbidopa/Levodopa 10 [Sinemet 10] 1 each PO HS 12/14/16 [History] Docusate [Colace] 100 mg PO BID 12/14/16 [History] Gabapentin [Neurontin] 400 mg PO BID 12/14/16 [History] Gabapentin [Neurontin] 600 mg PO HS 12/14/16 [History] Isosorbide MONOnitrate [Isosorbide Mononitrate ER] 120 mg PO HS 12/14/16 [ History] Lactose-Reduced Food [Ensure Plus] 1 bottle PO DAILY 12/14/16 [History] Losartan Potassium [Cozaar] 50 mg PO DAILY 12/14/16 [History] Metoprolol XL (24 HR) Succ [Toprol Xl] 25 mg PO DAILY 12/14/16 [History] Mupirocin [Bactroban Oint] 1 appl TP DAILY 12/14/16 [History] Olodaterol HCl [Striverdi Respimat] 2 puff IH DAILY 12/14/16 [History] Petrolatum,White [[place]] 1 appl TP BID 12/14/16 [History] Amlodipine [Norvasc] 10 mg PO DAILY #60 tablet 12/16/16 [Rx] Aspirin Enteric Coated [Aspirin EC] 81 mg PO DAILY #30 tablet. 12/16/16 [Rx] Atorvastatin [Lipitor] 40 mg PO HS #30 tablet 12/16/16 [Rx] Clopidogrel [Plavix] 75 mg PO DAILY #30 tablet 12/16/16 [Rx] Allergies/Adverse Reactions: Allergies orphenadrine [From Norflex] Allergy (Verified 09/24/15 14:15) Rash ropinirole Adverse Reaction (Verified 12/14/16 16:39) [facility] Procedures/tests Complete & Pending: Procedures Performed prior 72 hours Category Date Time Status ECG 12 lead ECG [ECG] Routine Y 12/14/16 13:01 Completed ECG 12 lead ECG [ECG] Stat Y 12/15/16 13:57 Completed EV carotid duplex imaging BI Routine Y 12/15/16 17:27 Completed EV echocardiogram Routine Y 12/15/16 17:27 Completed - Notes to Outpatient Provider New medications added to home medication list: Plavix 75 mg daily, Atorvastatin 40mg qd, Amlodipine 10mg qd. However, it is noticed pt take Losartan 50mg qd at home, which was cut to 25mg in hospital. Please resume home dose Losartan first, if BP still high, add amlodipine 5mg then 10mg if necessary. Please closely follow-up of blood pressure. Date of admission: 12/14/16 17:07 Primary care physician: [facility] Consults: 12/14/16 17:31 Consult to Occupational Therapy [CONS] Routine Comment: Evaluate, develop and implement POC Consult to Physical Therapy [CONS] Routine Comment: Evaluate, develop and implement POC 12/16/16 11:08 Consult to Vascular Surgery [CONS] Routine Consulting Provider: Vascular Surgery Estefani Reason for Consult: Carotid stenosis Call Completed: Yes Discharging clinician: Yue Camara Anticipated date of discharge: 12/16/16 - Patient Status Disposition: Home Health Service Condition: Good - Discharge Instructions Follow Up With: Alcides Bacon MD [Partnered Physician] - 12/22/16 4:40 pm [facility],PCP [Primary Care Provider] - Additional Instructions: Followup with your outpatient appointment with Dr. Bacon on December 22, 2016 at 4:40PM. Continue daily aspirin and begin daily plavix. - Diet and Activity Activity: as per physical therapy, increase activity as tolerated Diet: diabetic diet Interval History: Mr. Fletcher is a 86 year old male with past medical history of diabetes mellitus , CHF, hypertension, status post pacemaker implantation, CK 84, COPD, and thoracic aortic aneurysm. She at home and uses a wheelchair most of the time due to back problems. Around 8:30 AM, he was trying to reach his wheelchair with his left arm when he suddenly noticed some numbness and tingling as on his left hand followed by left arm weakness. He reported that his left arm just went numb and he couldn't move it. His left arm weakness lasted for about 10 minutes and never came back. By the time he got to [facility], he was completely asymptomatic. WBC 7.5. Hemoglobin 12.6. Platelets 229. Troponin 0.02. INR 1. EKG shows ventricular paced rhythm, rate 72. In our ED, blood pressure was 192/88. He was asymptomatic. No chest pain. No lightheadedness. No headache. No speech problems. No other focal deficit. No palpitations. No syncope. No abdominal pain. No lower extremity swelling. No bleeding. No urinary issues. He was transferred to our hospital for further management. Hospital course: Mr. Fletcher is a 86 year old male admitted as a TIA. He was placed on continuous cardiac monitoring. Aspirin, atorvastatin. Echocardiogram and duplex carotid ordered. Echo result is unremarkable. Duplex carotid this shows a bilateral carotid stenosis, right-sided stenosis is 60-79%. Vascular surgeon consult was called, Plavix by mouth added. On patient vascular surgery follow-up scheduled. Patient has no new neurology symptoms during hospitalization. Cardiac monitoring doesn't show significant arrhythmia. Patient will discharge home with by mouth aspirin, Plavix, atorvastatin. Amlodipine 10 mg by mouth daily added to his medication list for better blood pressure control. Patient has a home health to monitor blood pressure at home. I Saw and examined the patient today. He is awake alert, orientated 3, vital signs stable. No neurology deficit. Can walk around in room. Patient was discharged home and follow up with PCP and vascular surgery as outpatient. - Time Spent with Patient Total time spent providing and/or coordinating discharge services: 40 minutes Greater than 30 minutes - Constitutional Vitals: Temp Pulse Resp BP Pulse Ox 97.5 F L 66 14 165/76 94 L 12/16/16 11:56 12/16/16 11:56 12/16/16 11:56 12/16/16 11:56 12/16/16 11:56 General appearance: Present: A&O X 3, pleasant, no acute distress, answers questions appropriately - Head Head exam: Present: atraumatic, normocephalic - Eye Eye exam: Present: PERRL, conjuntiva pink, sclera anicteric Pupils: Present: PERRL - Neck Neck exam general surgery: Present: supple, trachea midline. Absent: lymphadenopathy - Respiratory Respiratory exam: Present: CTAB. Absent: accessory muscle use, rales, rhonchi, wheezes - Cardiovascular Cardiovascular exam: Present: RRR, +S1, +S2. Absent: diastolic murmur, gallop, rubs, systolic murmur - GI/Abdominal GI/Abdominal exam: Present: normal bowel sounds, soft, no peritoneal signs. Absent: distended, tenderness - Extremities Exam Extremities exam: Present: warm, radial pulses palpable and symetrical. Absent : calf tenderness, cyanotic, pedal edema - Neurological Exam Neurological exam: Present: CN II-XII intact, oriented X3, no focal deficits. Absent: pronater drift, facial droop, speech deficit - Skin Skin exam: Present: dry, intact - VTE Documentation of Mechanical Device: Venous foot pump, device
--- NOTE | 2016-12-16 15:56 | Physician Discharge Referral ---
Home Health/Hosp Referral Info Transfer to: Home Health Provider in Charge Post Discharge: PCP - Diagnosis (1) TIA (transient ischemic attack) Priority: Primary Status: Acute (2) COPD (chronic obstructive pulmonary disease) Priority: Secondary Status: Acute (3) Diastolic heart failure Priority: Secondary Status: Acute (4) Hypertension Priority: Secondary Status: Acute (5) CKD (chronic kidney disease) stage 4, GFR 15-29 ml/min Priority: Secondary Status: Chronic (6) DVT prophylaxis Priority: Secondary Status: Acute (7) Diabetes Priority: Secondary Status: Acute (8) Carotid stenosis Priority: Primary Status: Acute - Respiratory Orders Smoking Cessation: Smoking cessation has been advised. For more information, call the [employer] Quit Line at 5-979-XEPY-NOW. - Diet/Nutrition Diet/Nutrition Orders: No Concentrated Sweets (Diabetes Diet) - Activity Activity Orders: Ambulate - Services Needed Following services are medically necessary services: Nursing - Transfer Medications Prescriptions: Amlodipine [Norvasc] 10 mg PO DAILY #60 tablet Aspirin Enteric Coated [Aspirin EC] 81 mg PO DAILY #30 tablet. Atorvastatin [Lipitor] 40 mg PO HS #30 tablet Clopidogrel [Plavix] 75 mg PO DAILY #30 tablet Home Medications: Albuterol Sulfate [Albuterol Inhaler] 2 puff IH QID PRN 09/24/15 [History] Carboxymethylcellulose Sodium [Refresh Plus] 1 drop BOTH EYES QID 09/24/15 [ History] Furosemide [Lasix] 10 mg PO DAILY 09/24/15 [History] Insulin Glargine [Lantus] 21 units SQ QAM 09/24/15 [History] Omeprazole [PriLOSEC] 20 mg PO DAILY 09/24/15 [History] Pyridoxine HCl [Vitamin B-6] 50 mg PO DAILY 09/24/15 [History] Terazosin [Hytrin] 2 mg PO HS 09/24/15 [History] Cholecalciferol (D-3) [Vitamin D] 2,000 unit PO DAILY 10/27/15 [History] Methocarbamol [Robaxin] 500 mg PO TID PRN 10/27/15 [History] Nitroglycerin [Nitrostat] 0.4 mg SL Q5M PRN 10/27/15 [History] Polyethylene Glycol 3350 [MiraLAX bowel prep] 17 gm PO DAILY PRN 10/27/15 [ History] Albuterol Neb [Proventil Neb] 2.5 mg IH QID PRN 12/14/16 [History] Carbidopa/Levodopa 10 [Sinemet 10] 1 each PO HS 12/14/16 [History] Docusate [Colace] 100 mg PO BID 12/14/16 [History] Gabapentin [Neurontin] 400 mg PO BID 12/14/16 [History] Gabapentin [Neurontin] 600 mg PO HS 12/14/16 [History] Isosorbide MONOnitrate [Isosorbide Mononitrate ER] 120 mg PO HS 12/14/16 [ History] Lactose-Reduced Food [Ensure Plus] 1 bottle PO DAILY 12/14/16 [History] Losartan Potassium [Cozaar] 50 mg PO DAILY 12/14/16 [History] Metoprolol XL (24 HR) Succ [Toprol Xl] 25 mg PO DAILY 12/14/16 [History] Mupirocin [Bactroban Oint] 1 appl TP DAILY 12/14/16 [History] Olodaterol HCl [Striverdi Respimat] 2 puff IH DAILY 12/14/16 [History] Petrolatum,White [[place]] 1 appl TP BID 12/14/16 [History] Amlodipine [Norvasc] 10 mg PO DAILY #60 tablet 12/16/16 [Rx] Aspirin Enteric Coated [Aspirin EC] 81 mg PO DAILY #30 tablet. 12/16/16 [Rx] Atorvastatin [Lipitor] 40 mg PO HS #30 tablet 12/16/16 [Rx] Clopidogrel [Plavix] 75 mg PO DAILY #30 tablet 12/16/16 [Rx] Allergies/Adverse Reactions: Allergies orphenadrine [From Norflex] Allergy (Verified 09/24/15 14:15) Rash ropinirole Adverse Reaction (Verified 12/14/16 16:39) [facility] Certification: Further, I certify that my clinical findings support that this patient is homebound (i.e. absences from home require considerable and taxing effort and are for medical reasons or holiness services or infrequently or short duration when for other reasons) because: Homebound Reason: Patient requires assistance of a person or device to safely leave home Attestation: My signature below is to certify that this patient is under my care and that I, or nurse practitioner, or a physician's circulation assistant working with me, has a face-to -face encounter with this patient.
--- NOTE | 2016-12-16 19:25 | Electrocardiograph Report ---
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
--- NOTE | 2016-12-16 19:46 | Electrocardiograph Report ---
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
--- NOTE | 2016-12-17 17:58 | Carotid Imaging Report ---
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 The left internal carotid artery has a 40-59% stenosis. Recommendations: Risk factor reduction. Further evaluation recommended if clinically indicated. Follow-up carotid duplex in 1 year. Test completed on 12/15/2016 at 4:51:00 pm. Findings Prior Intervention: The patient has undergone the following procedure: endarterectomy. Carotid Duplex: Right: The right proximal common carotid artery has a PSV of 58 cm/s and a EDV of 11 cm/s. There is nonstenotic plaque in the right mid common carotid artery with a PSV of 62 cm/s and a EDV of 11 cm/s. There is irregular heterogeneous plaque. There is nonstenotic plaque in the right distal common carotid artery with a PSV of 139 cm/s and a EDV of 20 cm/s. There is irregular heterogeneous plaque. There is nonstenotic plaque in the right bifurcation with a PSV of 175 cm/s and a EDV of 19 cm/s. There is irregular heterogeneous plaque. There is 60-79% stenosis in the right proximal internal carotid artery with a PSV of 178 cm/s and a EDV of 23 cm/s. There is irregular heterogeneous plaque. There is 40-59% stenosis in the right mid internal carotid artery with a PSV of 144 cm/s and a EDV of 24 cm/s. There is irregular heterogeneous plaque. The right distal internal carotid artery has a PSV of 99 cm/s and a EDV of 20 cm/s. The right eca has a PSV of 169 cm/s and a EDV of 7 cm/s. The right vertebral artery has a PSV of 57 cm/s and a EDV of 7 cm/s. There is antegrade spectral Doppler flow patterns. Left: The left proximal common carotid artery has a PSV of 75 cm/s and a EDV of 9 cm/s. The left mid common carotid artery has a PSV of 71 cm/s and a EDV of 11 cm/s. The left distal common carotid artery has a PSV of 75 cm/s and a EDV of 14 cm/s. There is nonstenotic plaque in the left bifurcation with a PSV of 144 cm/s and a EDV of 20 cm/s. There is irregular, homogeneous calcified plaque. There is 40-59% stenosis in the left proximal internal carotid artery with a PSV of 140 cm/s and a EDV of 15 cm/s. There is smooth heterogeneous plaque. The left mid internal carotid artery has a PSV of 91 cm/s and a EDV of 20 cm/s. The left distal internal carotid artery has a PSV of 91 cm/s and a EDV of 24 cm/s. The left eca has a PSV of 173 cm/s and a EDV of 10 cm/s. The left vertebral artery has a PSV of 53 cm/s and a EDV of 10 cm/s. There is antegrade spectral Doppler flow patterns. Prior Study: No prior study available for comparison. Carotid Results Right PSV EDV Assessment Proximal CCA 58 11 Mid CCA 62 11 Non Stenotic Plaque Distal CCA 139 20 Non Stenotic Plaque Bifurcation 175 19 Non Stenotic Plaque Proximal ICA 178 23 60-79% stenosis Mid ICA 144 24 40-59% stenosis Distal ICA 99 20 ECA 169 7 Vertebral Artery 57 7 Antegrade Flow Left PSV EDV Assessment Proximal CCA 75 9 Mid CCA 71 11 Distal CCA 75 14 Bifurcation 144 20 Non Stenotic Plaque Proximal ICA 140 15 40-59% stenosis Mid ICA 91 20 Distal ICA 91 24 ECA 173 10 Vertebral Artery 53 10 Antegrade Flow Ratio's Right ICA/CCA Ratio: 2.87 ICA/CCA Values: 178/62 Left ICA/CCA Ratio: 1.97 ICA/CCA Values: 140/71 Updated by Curt Berger MD on 12/17/2016 5:52:52 PM electronically signed on 12/17/2016 5:53:18 PM with status of Final
== END 2016-12-16 17:30 | disposition home health service (06) | DRG 69 ==
LOC: EMEROO 12:57 → SUATTDRO 17:07 → 3BNU 17:07
PROVIDERS: ADMIT Internal Medicine; ATTEND Internal Medicine

== ENCOUNTER 2017-03-24 19:52 | Inpatient (IN) ==
--- NOTE | 2017-03-24 20:03 | Emergency Department Note ---
Disposition Clinical Impression: Renal failure (ARF), acute on chronic Chest pain Qualifiers: Chest pain type: unspecified Qualified Code(s): R07.9 - Chest pain, unspecified Diabetes mellitus Qualifiers: Diabetes mellitus type: type 1 Diabetes mellitus complication status: without complication Qualified Code(s): E10.9 - Type 1 diabetes mellitus without complications Disposition: Admitted As Inpatient Condition: Good Time of Disposition: 20:52 General Adult HPI - General Chief complaint: ED Chest Pain Stated complaint: chest pain Time Seen by Provider: 03/24/17 19:59 Nursing Notes Reviewed: Yes Vital Signs Reviewed: Yes - History of Present Illness HPI Narrative: 4 episodes of chest pain over a one-week period. Happens after he ambulates throughout the house. States that it is a pressure sensation radiates up his neck into his shoulders. Does have a history of cardiac stent placement as well as pacemaker. This time it was relieved with nitroglycerin. Last about 3 minutes Each time. Denies any shortness of breath. - Related Data Home Medications Medication Instructions Recorded Confirmed Albuterol Sulfate [Albuterol 2 puff IH QID PRN 09/24/15 12/14/16 Inhaler] Carboxymethylcellulose Sodium 1 drop BOTH EYES QID 09/24/15 12/14/16 [Refresh Plus] Insulin Glargine [Lantus] 21 units SQ QAM 09/24/15 12/14/16 Omeprazole [PriLOSEC] 20 mg PO DAILY 09/24/15 12/14/16 Pyridoxine HCl [Vitamin B-6] 50 mg PO DAILY 09/24/15 12/14/16 Terazosin [Hytrin] 2 mg PO HS 09/24/15 12/14/16 Cholecalciferol (D-3) [Vitamin D] 2,000 unit PO DAILY 10/27/15 12/14/16 Methocarbamol [Robaxin] 500 mg PO TID PRN 10/27/15 12/14/16 Nitroglycerin [Nitrostat] 0.4 mg SL Q5M PRN 10/27/15 12/14/16 Polyethylene Glycol 3350 [MiraLAX 17 gm PO DAILY PRN 10/27/15 12/14/16 bowel prep] Albuterol Neb [Proventil Neb] 2.5 mg IH QID PRN 12/14/16 12/14/16 Carbidopa/Levodopa 10 [Sinemet 1 each PO HS 12/14/16 12/14/16 10] Docusate [Colace] 100 mg PO BID 12/14/16 12/14/16 Gabapentin [Neurontin] 400 mg PO BID 12/14/16 12/14/16 Gabapentin [Neurontin] 600 mg PO HS 12/14/16 12/14/16 Isosorbide MONOnitrate [Isosorbide 120 mg PO HS 12/14/16 12/14/16 Mononitrate ER] Lactose-Reduced Food [Ensure Plus] 1 bottle PO DAILY 12/14/16 12/14/16 Losartan Potassium [Cozaar] 50 mg PO DAILY 12/14/16 12/14/16 Albuterol Neb [Proventil Neb] 2.5 mg IH QID PRN 03/24/17 03/24/17 Budesonide/Formoterol 160/4.5 2 puff IH BIDR 03/24/17 03/24/17 [Symbicort 160/4.5] Furosemide [Lasix] 40 mg PO DAILY 03/24/17 03/24/17 Metoprolol XL (24 HR) Succ [Toprol 50 mg PO DAILY 03/24/17 03/24/17 XL] PrednisoLONE Acetate 1% Opth 1 drop LEFT EYE DAILY 03/24/17 03/24/17 [PredFORTE 1%] Tramadol HCl [Ultram] 50 mg PO TID PRN 03/24/17 03/24/17 Previous Rx's Medication Instructions Recorded Aspirin Enteric Coated [Aspirin EC] 81 mg PO DAILY #30 tablet. 12/16/16 Atorvastatin [Lipitor] 40 mg PO HS #30 tablet 12/16/16 Clopidogrel [Plavix] 75 mg PO DAILY #30 tablet 12/16/16 Allergies Allergy/AdvReac Type Severity Reaction Status Date / Time orphenadrine [From Norflex] Allergy Rash Verified 09/24/15 14:15 ropinirole AdvReac Unknown Verified 12/14/16 16:39 All systems ED: reviewed and negative except as stated. Constitutional: Denies: fever, chills ENT ED: Denies: congestion Cardiovascular: Reports: chest pain (4 episodes over the past week. Lasting 3 minutes each. Last episode was relieved with one nitroglycerin.). Denies: palpitations, syncope Respiratory: Denies: cough, dyspnea Gastrointestinal: Denies: abdominal pain, nausea, vomiting, diarrhea, hematemesis, melena, hematochezia Genitourinary: Denies: urgency, dysuria, frequency, hematuria, discharge Musculoskeletal: Denies: back pain, neck pain Neurological: Denies: headache, weakness Past Medical History - Past Medical History Medical history: Reports: COPD, diabetes, hyperlipidemia, hypertension, renal disease Surgical history: Reports: angioplasty/stent, cholecystectomy, pacemaker/AICD, other (right sided endarterectomy) Psychiatric history: Reports: no psych history - Social History Smoking Status: Former smoker Smokeless Tobacco Status: No Alcohol use: Reports: none Drug use: Reports: none Physical Exam - General Limitations: no limitations General appearance: alert, in no apparent distress - Head Head exam: atraumatic, normocephalic, normal inspection - Eye Eye exam: Present: normal appearance, PERRL, EOMI. Absent: scleral icterus - ENT ENT exam: normal exam, normal oropharynx, mucous membranes moist - Neck Neck exam: Present: normal inspection, full ROM, trachea midline - Chest Chest inspection: Present: normal inspection, symmetric chest wall rise - Respiratory Respiratory exam: Present: normal lung sounds bilaterally. Absent: respiratory distress - Cardiovascular Cardiovascular exam: Present: regular rate, normal rhythm, normal heart sounds - Abdominal Exam Abdominal exam: Present: soft, Non-Tender, normal bowel sounds - Extremities Exam Extremities exam: Present: normal inspection, full ROM, normal capillary refill. Absent: tenderness, pedal edema - Back Exam Back exam: Present: normal inspection, full ROM. Absent: tenderness - Neurological Exam Neurological exam: Present: alert, oriented X3 - Psychiatric Psychiatric exam: Present: normal affect, normal mood - Skin Skin exam: Present: warm, dry, intact, normal color. Absent: rash, cyanosis Course Course Narrative: Now patient complaining of 4 episodes of chest pain. He describes it as a burning aching sensation in the service chest and radiates up his neck and on his arms bilaterally. He does have a history of stent placement as well as a pacemaker. The episodes of chest pain last about 3 minutes in duration. He states that the last one was today and was relieved with nitroglycerin. He was then seen at the [facility] and a workup was done on patient. He did not have any ST elevation or depression noted on his EKG however his initial troponin was 0.03. His chest x-ray did not show a pneumonia however he was recently released from the [facility] for pneumonia treatment on Tuesday 6 days ago. Denies any shortness of breath or chest pain at this time. He denies any nausea vomiting or diarrhea. He denies any associated diaphoresis. He denies any swelling to his extremities. His heart tones are normal lung sounds are clear. Abdomen is soft and nontender on exam. I do not appreciate any edema to his extremities. Have an elevated BNP. We will admit patient for a cardiac workup. Vital Signs Temperature 98 F 03/24/17 19:58 Pulse Rate 71 03/24/17 19:58 Respiratory Rate 18 03/24/17 19:58 Blood Pressure 184/77 03/24/17 19:58 O2 Sat by Pulse Oximetry 100 03/24/17 19:58 Temperature 98 F 03/24/17 19:58 Pulse Rate 71 03/24/17 19:58 Respiratory Rate 18 03/24/17 19:58 Blood Pressure 184/77 03/24/17 19:58 O2 Sat by Pulse Oximetry 100 03/24/17 20:07 Oxygen Delivery Oxygen Delivery Nasal Cannula Medical Decision Making - Medical Records Medical records reviewed: Yes I reviewed the patient's medical records. - Lab Data Lab results reviewed: Yes I reviewed the patient's lab results. - Radiology Data Radiology results reviewed: Yes I reviewed the patient's radiology results. - EKG Data EKG #1 EKG attestation: Yes I reviewed and interpreted this EKG. EKG results narrative: Atrially paced rhythm. Ventricular rate is 66. MD interval is 143. Q roman catholic is 169. No signs of acute ischemia. No significant change from previous EKG dated 12/15/2016.
--- NOTE | 2017-03-24 20:05 | Emergency Department Note ---
Disposition Clinical Impression: Renal failure (ARF), acute on chronic Chest pain Qualifiers: Chest pain type: unspecified Qualified Code(s): R07.9 - Chest pain, unspecified Diabetes mellitus Qualifiers: Diabetes mellitus type: other specified (including INOCENCIO) Diabetes mellitus complication status: with hyperglycemia Diabetes mellitus correction insulin use : unspecified correction insulin use status Qualified Code(s): E13.65 - Other specified diabetes mellitus with hyperglycemia Disposition: Admitted As Inpatient Condition: Fair Referrals: Unassigned,Provider [Primary Care Provider] - Forms: ED Satisfaction Letter General Adult HPI - General Chief complaint: ED Chest Pain Stated complaint: chest pain Time Seen by Provider: 03/24/17 19:59 Nursing Notes Reviewed: Yes Vital Signs Reviewed: Yes - Related Data Home Medications Medication Instructions Recorded Confirmed Albuterol Sulfate [Albuterol 2 puff IH QID PRN 09/24/15 12/14/16 Inhaler] Carboxymethylcellulose Sodium 1 drop BOTH EYES QID 09/24/15 12/14/16 [Refresh Plus] Furosemide [Lasix] 10 mg PO DAILY 09/24/15 12/14/16 Insulin Glargine [Lantus] 21 units SQ QAM 09/24/15 12/14/16 Omeprazole [PriLOSEC] 20 mg PO DAILY 09/24/15 12/14/16 Pyridoxine HCl [Vitamin B-6] 50 mg PO DAILY 09/24/15 12/14/16 Terazosin [Hytrin] 2 mg PO HS 09/24/15 12/14/16 Cholecalciferol (D-3) [Vitamin D] 2,000 unit PO DAILY 10/27/15 12/14/16 Methocarbamol [Robaxin] 500 mg PO TID PRN 10/27/15 12/14/16 Nitroglycerin [Nitrostat] 0.4 mg SL Q5M PRN 10/27/15 12/14/16 Polyethylene Glycol 3350 [MiraLAX 17 gm PO DAILY PRN 10/27/15 12/14/16 bowel prep] Albuterol Neb [Proventil Neb] 2.5 mg IH QID PRN 12/14/16 12/14/16 Carbidopa/Levodopa [Sinemet 1 each PO HS 12/14/16 12/14/16] Docusate [Colace] 100 mg PO BID 12/14/16 12/14/16 Gabapentin [Neurontin] 400 mg PO BID 12/14/16 12/14/16 Gabapentin [Neurontin] 600 mg PO HS 12/14/16 12/14/16 Isosorbide MONOnitrate [Isosorbide 120 mg PO HS 12/14/16 12/14/16 Mononitrate ER] Lactose-Reduced Food [Ensure Plus] 1 bottle PO DAILY 12/14/16 12/14/16 Losartan Potassium [Cozaar] 50 mg PO DAILY 12/14/16 12/14/16 Metoprolol XL (24 HR) Succ [Toprol 25 mg PO DAILY 12/14/16 12/14/16 Xl] Mupirocin [Bactroban Oint] 1 appl TP DAILY 12/14/16 12/14/16 Olodaterol HCl [Striverdi Respimat] 2 puff IH DAILY 12/14/16 12/14/16 Petrolatum,White [Aloe [place]] 1 appl TP BID 12/14/16 12/14/16 Previous Rx's Medication Instructions Recorded Aspirin Enteric Coated [Aspirin EC] 81 mg PO DAILY #30 tablet. 12/16/16 Atorvastatin [Lipitor] 40 mg PO HS #30 tablet 12/16/16 Clopidogrel [Plavix] 75 mg PO DAILY #30 tablet 12/16/16 amLODIPine [Norvasc] 10 mg PO DAILY #60 tablet 12/16/16 Allergies Allergy/AdvReac Type Severity Reaction Status Date / Time orphenadrine [From Norflex] Allergy Rash Verified 09/24/15 14:15 ropinirole AdvReac Unknown Verified 12/14/16 16:39 Past Medical History - Past Medical History Medical history: Reports: COPD, diabetes, hyperlipidemia, hypertension, renal disease Surgical history: Reports: angioplasty/stent, cholecystectomy, pacemaker/AICD, other (right sided endarterectomy) Psychiatric history: Reports: no psych history - Social History Smoking Status: Former smoker Smokeless Tobacco Status: No Alcohol use: Reports: none Drug use: Reports: none Course Vital Signs Temperature 98 F 03/24/17 19:58 Pulse Rate 71 03/24/17 19:58 Respiratory Rate 18 03/24/17 19:58 Blood Pressure 184/77 03/24/17 19:58 O2 Sat by Pulse Oximetry 100 03/24/17 19:58 Temperature 98 F 03/24/17 19:58 Pulse Rate 71 03/24/17 19:58 Respiratory Rate 18 03/24/17 19:58 Blood Pressure 184/77 03/24/17 19:58 O2 Sat by Pulse Oximetry 100 03/24/17 20:07 Oxygen Delivery Oxygen Delivery Nasal Cannula Medical Decision Making - MDM Narrative Medical decision making narrative: I examined this patient and my medical decision-making was reviewed with the PROPELLER TESTER/PA/Advanced Practice Nurse/Resident Physician. I agree with the documented findings, disposition and treatment plan as described except to the extent set forth below. The patient was seen on arrival by EMS from the [facility]. Was seen by Dr. Duarte and myself, I agree with her evaluation and management plan, suprascapular patient's stay, patient had chest pain on and off for 4 days up in brief episodes and history of recent pneumonia that he thinks she has recovered well from. The troponin at the [place] which is 0.33 is about 2 hours after his last episode of chest pain on his nitroglycerin paste chest x-ray shows a resolving pneumonia. He also has elevation in his BMP. Denies any swelling in his ankles stuttering chest pain at this time. Repeat EKG here shows an atrial paced rhythm. Undergo ahead and bring him into the hospital for ACS rule out. He is in agreement with this plan. Chest pain-free at this time. 2000 hrs.: Patient had an EKG which shows an atrial paced rhythm with a rate of 66 QRS is 169, QTC is 472, no signs of ischemia, compared with an EKG done in December and showed no changes except for rate. 2009 hrs.: Spoke with the hospitalist agreed to bring the patient into the hospital. Patient's pain-free in agreement with admission. Impression is hyperglycemia with diabetes poorly controlled, chest pain rule out ACS, chronic renal insufficiency with elevation in creatinine acute on chronic. Patient's pain-free at this time.
[2017-03-24] MEDS ORDERED: Naloxone 0.4 MG/ML INJ IVP PRN (22:37)
[2017-03-24] MEDS ORDERED: Nitroglycerin 0.4 MG TAB.SUBL SL PRN (22:38)
--- NOTE | 2017-03-24 22:41 | Internal Med History&Physical ---
Date of Encounter: 03/24/17 Time of Encounter: 22:41 Assessment and Plan (1) Chest pain Current visit: Yes Status: Acute patient with a significant history of PAD and also reports ?CAD s/p stent, significant risk factors for CAD comes in with stuttering chest pain ongoing for about a week admission EKG was paced, troponin was unremarkable event considering CKD, his risk is still concerning so we will have cardiology weigh in for consideration of cardiac cath, in the meantime we ivone cycle troponin, telemonitor, continue his cardiac medications, check A1c and lipid profile and NPO post midnight Qualifiers: Chest pain type: precordial pain Qualified Code(s): R07.2 - Precordial pain (2) Hypertension Current visit: Yes Status: Chronic will continue home medications with BP monitoring Qualifiers: Hypertension type: essential hypertension Qualified Code(s): I10 - Essential (primary) hypertension (3) COPD (chronic obstructive pulmonary disease) Current visit: Yes Status: Chronic will do PRN nebs Qualifiers: COPD type: emphysema Emphysema type: unspecified Qualified Code(s): J43.9 - Emphysema, unspecified (4) Diabetes mellitus Current visit: Yes Status: Chronic Hx of DM type 2 with A1c of 8.1%, in 12/2015, on insulin regimen, we will continue that with FS Q6H whilst fasting with low dose SSI for coverage Qualifiers: Diabetes mellitus type: type 2 Diabetes mellitus complication status: with neurologic complications Diabetes mellitus complication detail: with polyneuropathy 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: without 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 Fletcher is a 87 year old male with a history of PAD/HTN/DM type 2/CAD s/p stent was sent from the [place] urgent care for chest pain. He was in his usual state of health until about a week ago when he began to have stuttering chest pain. The pain was 5/10 in severity, located substernally, radiates to the neck. He had been in this situation until today when he had about 4 episodes prompting him to report at the [place] urgent care where he was summarily transferred here for further evaluation and management. He denies any worsening of his baseline dyspnea, no palpitations, nausea or vomiting, no feeling of apprehension, palpitations or lightheadedness associated with any of the episodes. 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), renal disease (CKD stage 4 ), other (cataracts, irregular heart beats, PAD) Psychiatric history: no psych history - Past Surgical History Surgical History: angioplasty/stent, cholecystectomy, pacemaker/AICD, other ( prostate surgery and right carotid artery surgery, incision and drainage of left foot) - Social History Smoking Status: Former smoker Smokeless Tobacco Status: No Alcohol use: none Drug use: none Current living situation: Home - Independent Activity Level: Independent ambulation - Family History Father Living Status: Hx Family Cardiac Disorders: No Hx Family Respiratory Disorders: No Hx Family Cancer: No Hx Family GI Disorders: No Hx Family Endocrine Disorder: Yes Hx Family Neuromuscular Disorders: No Hx Family Neurologic Disorders: No Hx Family HEENT Disorders: No Hx Family Autoimmune Disorders: No Internal Medicine - H&P: Meds Albuterol Sulfate [Albuterol Inhaler] 2 puff IH QID PRN 09/24/15 [History] Carboxymethylcellulose Sodium [Refresh Plus] 1 drop BOTH EYES QID 09/24/15 [ History] Insulin Glargine [Lantus] 21 units SQ QAM 09/24/15 [History] Omeprazole [PriLOSEC] 20 mg PO DAILY 09/24/15 [History] Pyridoxine HCl [Vitamin B-6] 50 mg PO DAILY 09/24/15 [History] Terazosin [Hytrin] 2 mg PO HS 09/24/15 [History] Cholecalciferol (D-3) [Vitamin D] 2,000 unit PO DAILY 10/27/15 [History] Methocarbamol [Robaxin] 500 mg PO TID PRN 10/27/15 [History] Nitroglycerin [Nitrostat] 0.4 mg SL Q5M PRN 10/27/15 [History] Polyethylene Glycol 3350 [MiraLAX bowel prep] 17 gm PO DAILY PRN 10/27/15 [ History] Albuterol Neb [Proventil Neb] 2.5 mg IH QID PRN 12/14/16 [History] Carbidopa/Levodopa 10 [Sinemet 10] 1 each PO HS 12/14/16 [History] Docusate [Colace] 100 mg PO BID 12/14/16 [History] Gabapentin [Neurontin] 400 mg PO BID 12/14/16 [History] Gabapentin [Neurontin] 600 mg PO HS 12/14/16 [History] Isosorbide MONOnitrate [Isosorbide Mononitrate ER] 120 mg PO HS 12/14/16 [ History] Lactose-Reduced Food [Ensure Plus] 1 bottle PO DAILY 12/14/16 [History] Losartan Potassium [Cozaar] 50 mg PO DAILY 12/14/16 [History] Aspirin Enteric Coated [Aspirin EC] 81 mg PO DAILY #30 tablet. 12/16/16 [Rx] Atorvastatin [Lipitor] 40 mg PO HS #30 tablet 12/16/16 [Rx] Clopidogrel [Plavix] 75 mg PO DAILY #30 tablet 12/16/16 [Rx] Albuterol Neb [Proventil Neb] 2.5 mg IH QID PRN 03/24/17 [History] Budesonide/Formoterol 160/4.5 [Symbicort 160/4.5] 2 puff IH BIDR 03/24/17 [ History] Furosemide [Lasix] 40 mg PO DAILY 03/24/17 [History] Metoprolol XL (24 HR) Succ [Toprol XL] 50 mg PO DAILY 03/24/17 [History] PrednisoLONE Acetate 1% Opth [PredFORTE 1%] 1 drop LEFT EYE DAILY 03/24/17 [ History] Tramadol HCl [Ultram] 50 mg PO TID PRN 03/24/17 [History] Allergies orphenadrine [From Norflex] Allergy (Verified 09/24/15 14:15) Rash ropinirole Adverse Reaction (Verified 12/14/16 16:39) Unknown Per list from [facility] PM: A 10-system review of systems was performed and is negative for pertinent findings except as documented above in the HPI. - Constitutional Vitals: Temp Pulse Resp BP Pulse Ox 98.0 F 64 16 165/65 98 03/24/17 21:32 03/24/17 21:32 03/24/17 21:32 03/24/17 21:32 03/24/17 21:32 PHYSICAL EXAMINATION: GENERAL: Frail lookng elderly male, sitting up in bed, Alert, HEENT: NC/AT, EOMI, PERRLA, anicteric sclera, normal conjunctiva, supple, clear nares, moist mucous membranes, clear oropharynx, RESP: no chest wall tenderness with palpation, crackles noted on the left lower lung zone clear in all other areas, no wheeze CARDIO: Normal hearts sounds; S1 and 2, RRR with no murmurs, no JVD, no ankle edema GI: Soft, full, no tenderness, no organomegaly felt, normal bowel sounds heard MUSCULOSKELETAL: grossly normal movements bilaterally, no deformities noted, no calf tenderness NEUROLOGIC: CN 2-12 intact grossly. No motor/sensory deficit appreciated, PSYCHIATRY: AAO x 3. Mood is fair, SKIN: no skin rash noted Internal Med - H&P Results - Labs CBC & Chem 7: 03/25/17 01:17 03/25/17 01:17 - EKG Data -: EKG Interpreted by Myself - Diagnostic Studies Chest x-ray Additional comments: reviewed labs and [facility]
[2017-03-24] MEDS ORDERED: NON-FORMULARY MEDICATION 1 EACH EACH (Gabapentin [Neurontin] 600 MG) PO SCH (22:45)
[2017-03-24] MEDS ORDERED: Gabapentin 400 MG CAPSULE PO SCH (22:45)
[2017-03-25] MEDS ORDERED: Albuterol 2.5 MG/3 ML NEBULIZER IH PRN (00:41)
[2017-03-25] MEDS: traMADol 50 MG TABLET PO PRN ×3 (00:57→21:00)
[2017-03-25] MEDS ORDERED: Gabapentin 100 MG CAPSULE PO SCH (01:00)
[2017-03-25] MEDS: Methocarbamol 500 MG TABLET PO PRN ×3 (01:03→21:00)
[2017-03-25 01:28] LABS: Hematocrit 35.6 % (37.5-50.1); Hemoglobin 11.5 g/dL (12.9-16.9); Immature Platelets 3.6 % (1.1-6.1); Mean Corpuscular HGB Conc 32.3 g/dL (31.6-35.5); Mean Corpuscular Hemoglobin 30.2 pg (28.0-33.3); Mean Corpuscular Volume 93.4 fL (83.0-100.0); Mean Platelet Volume 10.1 fL (9.4-12.4); Red Blood Count 3.81 M/mcL (4.19-5.50); Red Cell Distribution Width 13.9 % (11.5-14.5)
[2017-03-25 01:40] LABS: Calcium 8.4 mg/dL (8.6-10.8); Magnesium 1.8 mg/dL (1.6-2.6); Phosphorous 4.6 mg/dL (2.3-4.7); Potassium 3.9 mEq/L (3.5-4.5)
[2017-03-25 01:54] LABS: Hemoglobin A1C 8.5 %
[2017-03-25] MEDS ORDERED: *HR* Dextrose 50 % in Water (Syg) 50 ML SYRINGE IVP PRN (05:39)
[2017-03-25] MEDS ORDERED: D5% in Water 1,000 ML IVC PRN (05:39)
[2017-03-25] MEDS ORDERED: Dextrose Gel 15 GM PO PRN ×2 (05:39)
[2017-03-25] MEDS: *HR* Heparin 5,000 UNIT/ML VIAL SQ SCH ×3 (06:08→21:00)
[2017-03-25] MEDS: Insulin LISPRO 300 UNITS/3 ML VIAL SQ SCH ×4 (07:44→21:07)
[2017-03-25] MEDS ORDERED: NON-FORMULARY MEDICATION 1 EACH EACH (Lactose-Reduced Food [Ensure Plus] 1 BOTTLE) PO SCH (09:00)
[2017-03-25] MEDS ORDERED: Insulin DETEMIR 100 UNIT/ML X5UNITS SQ SCH ×2 (09:00→09:14)
[2017-03-25] MEDS ORDERED: INSULIN GLARGINE SQ SCH (09:00)
[2017-03-25] MEDS: Aspirin Enteric Coated 81 MG Tablet PO SCH (09:24)
[2017-03-25] MEDS: Metoprolol XL (24 HR) Succ 50 MG TAB.ER.24H PO SCH (09:24)
[2017-03-25] MEDS: Pyridoxine (B-6) 50 MG TABLET PO SCH (09:24)
[2017-03-25] MEDS: Furosemide 40 MG TABLET PO SCH (09:24)
[2017-03-25] MEDS: Cholecalciferol (D-3) 1,000 UNIT TABLET PO SCH (09:24)
[2017-03-25] MEDS: Artificial Tears SOLN 15 ML BOTTLE BOTH EYES SCH ×4 (09:25→21:06)
[2017-03-25] MEDS: PrednisoLONE Acetate 1% Opth 5 ML BOTTLE LEFT EYE SCH (09:25)
--- NOTE | 2017-03-25 09:38 | Cardiology Consult Note ---
Date of Encounter: 03/25/17 Time of Encounter: 09:37 Assessment and Plan (1) Elevated troponin I level Current Visit: Yes Status: Acute trop 0.04- adynamic; likely 2/2 demand ischemia from worsening renal function. Pt does have hx of CAD with cardiac stent and AICD/PM, though pt does not know when this was done. Currently asymptomatic, no chest pain or SOB. Pt will not need cardiac rehabilitation. - Repeat limited echocardiogram to check for decreased function; if worse, will consider heart catheterization. Pt will likely need a heart cath in the future but will hold off for now due to renal function Cr 2.64) (2) Chest pain Current Visit: Yes Status: Acute chest pressure for ~3 mins each time. Most recent episode relieved with nitro. Denies any n/v/sob. - will get a repeat limited echo to compare with the one from 12/15/16 which had shown LVEF50%. If worse, will consider heart cath. Medical management for now. - Increase Imdur 120mg daily to 180 mg daily. - Okay for diabetic/cardiac/renal diet. Qualifiers: Chest pain type: precordial pain Qualified Code(s): R07.2 - Precordial pain (3) PAD (peripheral artery disease) Current Visit: Yes Status: Chronic Symptoms of claudication - start Cilostazol 50mg BID; f/u outpatient with his vascular surgeon. Discussion w patient/family: The assessment and plan as outlined above was discussed with the patient and/or family members who expressed understanding and agreement. All questions were answered. Thank you for involving us in the care of your patient. Please call with any questions. History of Present Illness Consult date: 03/25/17 Requesting physician: Yonas Polo Consult reason: chest pressure, trop 0.04 Chief complaint: chest pressure History of present illness: Mr. Fletcher is a 87 year old male with a past medical history of peripheral artery disease with stent, hypertension, hyperlipidemia, type 2 diabetes, CAD status post stents, congestive heart failure diagnosed in 2010, COPD, TIA, CKD stage III, b/l carotid stenosis. [facility] being [facility] for [facility]. Since coming home, he has had episodes of chest pressure that radiated to his neck and shoulders. States it has happened 4 times over the last week. Most recently, he was walking to the bathroom and when he got back and sat down, he had onset of chest pain. States the pain lasts for approximately 3 minutes and then goes away. Most recently, he took some nitroglycerin and it seemed to help. Patient is a poor historian. Pt states his activities of daily living, going upstairs are limited to the pain in his legs that come on with walking/exertion , but generally does not get chest pain during the exertion. Last echocardiogram was done on 12/17/2016 which showed LVEF 50%, mild concentric LVH. EKG from 03/24/17 done at 20:01 showed an atrial/ventricular paced rhythm. 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), renal disease (CKD stage 4 ), other (cataracts, irregular heart beats, PAD) Psychiatric history: no psych history - Past Surgical History Surgical History: angioplasty/stent, cholecystectomy, pacemaker/AICD, other ( prostate surgery and right carotid artery surgery, incision and drainage of left foot) - Social History Smoking Status: Former smoker Smokeless Tobacco Status: No Alcohol use: none Drug use: none - Family History Father Living Status: Hx Family Cardiac Disorders: No Hx Family Respiratory Disorders: No Hx Family Cancer: No Hx Family GI Disorders: No Hx Family Endocrine Disorder: Yes Hx Family Neuromuscular Disorders: No Hx Family Neurologic Disorders: No Hx Family HEENT Disorders: No Hx Family Autoimmune Disorders: No Medications and Allergies Albuterol Sulfate [Albuterol Inhaler] 2 puff IH QID PRN 09/24/15 [History] Carboxymethylcellulose Sodium [Refresh Plus] 1 drop BOTH EYES QID 09/24/15 [ History] Insulin Glargine [Lantus] 21 units SQ QAM 09/24/15 [History] Omeprazole [PriLOSEC] 20 mg PO DAILY 09/24/15 [History] Pyridoxine HCl [Vitamin B-6] 50 mg PO DAILY 09/24/15 [History] Terazosin [Hytrin] 2 mg PO HS 09/24/15 [History] Cholecalciferol (D-3) [Vitamin D] 2,000 unit PO DAILY 10/27/15 [History] Methocarbamol [Robaxin] 500 mg PO TID PRN 10/27/15 [History] Nitroglycerin [Nitrostat] 0.4 mg SL Q5M PRN 10/27/15 [History] Polyethylene Glycol 3350 [MiraLAX bowel prep] 17 gm PO DAILY PRN 10/27/15 [ History] Albuterol Neb [Proventil Neb] 2.5 mg IH QID PRN 12/14/16 [History] Carbidopa/Levodopa 10 [Sinemet ] 1 each PO HS 12/14/16 [History] Docusate [Colace] 100 mg PO BID 12/14/16 [History] Gabapentin [Neurontin] 400 mg PO BID 12/14/16 [History] Gabapentin [Neurontin] 600 mg PO HS 12/14/16 [History] Isosorbide MONOnitrate [Isosorbide Mononitrate ER] 120 mg PO HS 12/14/16 [ History] Lactose-Reduced Food [Ensure Plus] 1 bottle PO DAILY 12/14/16 [History] Losartan Potassium [Cozaar] 50 mg PO DAILY 12/14/16 [History] Aspirin Enteric Coated [Aspirin EC] 81 mg PO DAILY #30 tablet. 12/16/16 [Rx] Atorvastatin [Lipitor] 40 mg PO HS #30 tablet 12/16/16 [Rx] Clopidogrel [Plavix] 75 mg PO DAILY #30 tablet 12/16/16 [Rx] Albuterol Neb [Proventil Neb] 2.5 mg IH QID PRN 03/24/17 [History] Budesonide/Formoterol 160/4.5 [Symbicort 160/4.5] 2 puff IH BIDR 03/24/17 [ History] Furosemide [Lasix] 40 mg PO DAILY 03/24/17 [History] Metoprolol XL (24 HR) Succ [Toprol XL] 50 mg PO DAILY 03/24/17 [History] PrednisoLONE Acetate 1% Opth [PredFORTE 1%] 1 drop LEFT EYE DAILY 03/24/17 [ History] Tramadol HCl [Ultram] 50 mg PO TID PRN 03/24/17 [History] Allergies orphenadrine [From Norflex] Allergy (Verified 09/24/15 14:15) Rash ropinirole Adverse Reaction (Verified 12/14/16 16:39) [facility] All Systems Review: A 10-system review of systems was performed and is negative for pertinent findings except as documented above in the HPI. - Constitutional Constitutional: fatigue, no fever(s) - EENT Eyes: no blurred vision Nose, mouth and throat: no dysphagia - Cardiovascular Cardiovascular: chest pain at rest, claudication, no chest pain with exertion, no diaphoresis, no dyspnea at rest, no dyspnea on exertion, no irregular heart rhythm - Respiratory Respiratory: no cough, no dyspnea - Gastrointestinal Gastrointestinal: no abdominal pain - Genitourinary Genitourinary: no dysuria - Musculoskeletal Musculoskeletal: muscle cramps (in lower extremities with walking), no muscle weakness - Integumentary Integumentary: no erythema, no rash - Neurological Neurological: no focal weakness, no loss of vision Physical Examination Vital Signs, Last 4 Hours Temp Pulse Resp BP Pulse Ox 03/25/17 06:59 98.5 F 73 18 168/56 97 General: Conversant, No Apparent Distress HEENT: Atraumatic, Mucus Membranes Moist Neck: No JVD Cardiac: Reg Rate and Rhythm, Normal S1 and S2, No Murmur Lungs: Normal Breath Sounds, No Wheeze, Rales, Rhonchi Neuro: Alert and responsive, No focal deficits noted Abdomen: Soft, Non-Tender Skin: No rashes noted on visualized skin Musculoskeletal: No Chest Wall Tenderness Extremities: No Edema, Normal Pulses Results 03/25/17 01:17 03/25/17 01:17 Lab Results 03/25/17 03/25/17 03/25/17 01:17 01:17 01:17 WBC 10.0 Hgb 11.5 L Hct 35.6 L Plt Count 269 Sodium 133 L Potassium 3.9 Chloride 99 Carbon Dioxide 27 BUN 51 H Creatinine 2.64 H Glucose 379 H Calcium 8.4 L Magnesium 1.8 Troponin I 0.04 H* 03/25/17 06:19 WBC Hgb Hct Plt Count Sodium Potassium Chloride Carbon Dioxide BUN Creatinine Glucose Calcium Magnesium Troponin I 0.04 H* - Imaging and Cardiology Chest Xray: report reviewed Echo: pending - EKG Interpretation EKG results cardiology: personally reviewed, no diagnostic ischemia (atrial and ventricular paced rhythm) Consult Discharge Plan - Plan Referrals: Unassigned,Provider [Primary Care Provider] -
[2017-03-25] MEDS: Insulin DETEMIR 100 UNIT/ML X5UNITS SQ SCH (10:21)
[2017-03-25] MEDS: Budesonide/Formoterol 160/4.5 MDI IH SCH ×2 (10:31→22:28)
[2017-03-25] MEDS ORDERED: Perflutren Lipid Microsphere 1.3 ML in 0.9 % Sodium Chloride 8.7 ML IVP ONE (12:30)
[2017-03-25] MEDS ORDERED: Perflutren Lipid Microsphere 2 ML VIAL ONE (12:36)
[2017-03-25] MEDS: Gabapentin 400 MG CAPSULE PO SCH (13:06)
--- NOTE | 2017-03-25 16:38 | Electrocardiograph Report ---
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
--- NOTE | 2017-03-25 19:12 | Internal Med Progress Note ---
Date of Encounter: 03/25/17 Time of Encounter: 10:00 - Assessment and plan (1) Chest pain Current Visit: Yes Status: Acute Assessment and plan: Patient with significant history of peripheral artery disease, CAD status post stent presenting with chest pain. We will trend troponins, consult cardiology, we will keep the patient nothing by mouth for possible need for cardiac catheterization. Qualifiers: Chest pain type: precordial pain Qualified Code(s): R07.2 - Precordial pain (2) CKD (chronic kidney disease) stage 4, GFR 15-29 ml/min Current Visit: Yes Status: Chronic Assessment and plan: Avoid nephrotoxins. Monitor kidney function. (3) COPD (chronic obstructive pulmonary disease) Current Visit: Yes Status: Chronic Assessment and plan: No evidence of exacerbation. Lungs are clear. We will use inhaled albuterol as needed. Oxygen by nasal cannula to maintain saturation above 92%. Qualifiers: COPD type: emphysema Emphysema type: unspecified Qualified Code(s): J43.9 - Emphysema, unspecified (4) Diabetes mellitus Current Visit: Yes Status: Chronic Assessment and plan: Diabetic diet. Insulin sliding scale Qualifiers: Diabetes mellitus type: type 2 Diabetes mellitus complication status: with neurologic complications Diabetes mellitus complication detail: with polyneuropathy Diabetes mellitus mcfp insulin use: without mcfp use Qualified Code(s): E11.42 - Type 2 diabetes mellitus with diabetic polyneuropathy (5) Hypertension Current Visit: Yes Status: Chronic Assessment and plan: Continue with home antihypertensive medication. Qualifiers: Hypertension type: essential hypertension Qualified Code(s): I10 - Essential (primary) hypertension (6) PAD (peripheral artery disease) Current Visit: Yes Status: Chronic Assessment and plan: Continue with aspirin and Plavix. - Subjective Interval history: [facility] he reported midsternal chest pain radiating to the neck moderate in intensity, pressure-like, lasted about 3 minutes. Denies associated nausea vomiting or diaphoresis. The pain has resolved since yesterday. - Constitutional Vitals: Temp Pulse Resp BP Pulse Ox 98.0 F 62 18 175/72 98 03/25/17 19:01 03/25/17 19:01 03/25/17 19:01 03/25/17 19:01 03/25/17 19:01 General appearance: Present: A&O X 3 - Eye Eye exam: Present: PERRL, conjuntiva pink, sclera anicteric Pupils: Present: PERRL - Cardiovascular Cardiovascular exam: Present: RRR, +S1, +S2. Absent: diastolic murmur, gallop, rubs, systolic murmur - GI/Abdominal GI/Abdominal exam: Present: normal bowel sounds, soft, no peritoneal signs. Absent: distended, tenderness - Extremities Exam Extremities exam: Present: warm, radial pulses palpable and symetrical. Absent : calf tenderness, cyanotic, pedal edema - Skin Skin exam: Present: dry, intact Internal Medicine: Result - Labs CBC & Chem 7: 03/25/17 01:17 03/25/17 01:17 Labs: Short CBC 03/25/17 Range/Units 01:17 WBC 10.0 (4.3-11.1) K/mcL Hgb 11.5 L (12.9-16.9) g/dL Hct 35.6 L (37.5-50.1) % Plt Count 269 (140-400) K/mcL BMP 03/25/17 01:17 Sodium 133 L Potassium 3.9 Chloride 99 Carbon Dioxide 27 BUN 51 H Creatinine 2.64 H Glucose 379 H Calcium 8.4 L Cardiac Enzymes 03/25/17 03/25/17 Range/Units 01:17 06:19 Troponin I 0.04 H* 0.04 H* (0-0.03) ng/mL Consult Discharge Plan - Plan Referrals: Unassigned,Provider [Primary Care Provider] -
[2017-03-25] MEDS ORDERED: Gabapentin 300 MG CAPSULE PO SCH (21:00)
[2017-03-25] MEDS ORDERED: Isosorbide MONOnitrate (24 HR) 60 MG TAB.ER.24H PO SCH ×2 (21:00)
[2017-03-26 04:02] LABS: Basophils % 0.4 %; Eosinophils # 0.2 K/mcL (0.0-0.6); Hematocrit 32.8 % (37.5-50.1); Hemoglobin 10.9 g/dL (12.9-16.9); Immature Granulocytes % 0.7 % (0-4); Lymphocytes # 2.2 K/mcL (0.6-4.6); Lymphocytes % 22.6 %; Mean Corpuscular HGB Conc 33.2 g/dL (31.6-35.5); Mean Corpuscular Hemoglobin 31.3 pg (28.0-33.3); Mean Corpuscular Volume 94.3 fL (83.0-100.0); Mean Platelet Volume 10.9 fL (9.4-12.4); Monocytes # 0.9 K/mcL (0.0-1.3); Monocytes % 9.2 %; Neutrophils # 6.4 K/mcL (1.6-8.9); Platelet Count 234 K/mcL (140-400); Red Blood Count 3.48 M/mcL (4.19-5.50); Red Cell Distribution Width 13.9 % (11.5-14.5); Segmented Neutrophils % 65.1 %
[2017-03-26 04:29] LABS: Calcium 8.4 mg/dL (8.6-10.8); Potassium 3.9 mEq/L (3.5-4.5)
[2017-03-26] MEDS: *HR* Heparin 5,000 UNIT/ML VIAL SQ SCH (05:22)
[2017-03-26] MEDS: Budesonide/Formoterol 160/4.5 MDI IH SCH (07:51)
[2017-03-26] MEDS: Aspirin Enteric Coated 81 MG Tablet PO SCH (08:52)
[2017-03-26] MEDS: Insulin DETEMIR 100 UNIT/ML X5UNITS SQ SCH (08:52)
[2017-03-26] MEDS: Gabapentin 400 MG CAPSULE PO SCH (08:52)
[2017-03-26] MEDS: Furosemide 40 MG TABLET PO SCH (08:52)
[2017-03-26] MEDS: Cholecalciferol (D-3) 1,000 UNIT TABLET PO SCH (08:52)
[2017-03-26] MEDS: Pyridoxine (B-6) 50 MG TABLET PO SCH (08:52)
[2017-03-26] MEDS: Insulin LISPRO 300 UNITS/3 ML VIAL SQ SCH ×2 (08:52→12:08)
[2017-03-26] MEDS: Metoprolol XL (24 HR) Succ 50 MG TAB.ER.24H PO SCH (08:52)
[2017-03-26] MEDS: Artificial Tears SOLN 15 ML BOTTLE BOTH EYES SCH ×2 (08:53→12:09)
[2017-03-26] MEDS: PrednisoLONE Acetate 1% Opth 5 ML BOTTLE LEFT EYE SCH (08:53)
[2017-03-26] MEDS: Methocarbamol 500 MG TABLET PO PRN (08:57)
[2017-03-26] MEDS: traMADol 50 MG TABLET PO PRN (08:57)
[2017-03-26 10:55] VITALS: BP 133/62
--- NOTE | 2017-03-26 11:55 | Discharge Summary ---
Date of Encounter: 03/26/17 Time of Encounter: 10:10 - Discharge Diagnosis (1) Chest pain Priority: Primary Status: Acute Comments: Patient reports episodes of upper chest pain with radiation to bilateral shoulders and posterior neck. He says it lasts for about 3 minutes. He describes it as a pressure. He said that he had the chest pressure then went to the NH was sent here for evaluation. He just been discharged from the NH one week ago, he was treated for pneumonia and CHF. He has been pain-free since this episode. He denies shortness of breath, nausea, vomiting, diaphoresis. He was evaluated by cardiology and got a repeat limited echo to determine if his LVEF had decreased. In December of this year it was 50%, repeat echo showed 55-60%. This will be medically managed by increasing his Imdur to 180 mg daily. Qualifiers: Chest pain type: precordial pain Qualified Code(s): R07.2 - Precordial pain (2) Elevated troponin I level Priority: Secondary Status: Acute Comments: Troponin was 0.04, flat and adynamic most likely due to demand from worsening renal function. Patient is asymptomatic and has no chest pain or any other symptoms. Plan as above. (3) Diabetes Priority: Primary Status: Acute Comments: Patient's A1c is 8.5. We did discuss that this is slightly elevated. Patient is aware and states that he does not wish to see a fpga design engineer. Patient will continue insulin and Accu-Cheks at home. He will follow up with primary care physician as scheduled. 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 GFR is 24. Patient sees Dr. Kaur. Avoid nephrotoxins and NSAIDs. (5) Hypertension Priority: Secondary Status: Chronic Comments: Chronic. Continue home medications. Qualifiers: Hypertension type: essential hypertension Qualified Code(s): I10 - Essential (primary) hypertension (6) COPD (chronic obstructive pulmonary disease) Priority: Secondary Status: Chronic Comments: No acute exacerbation at this time. Patient will continue home medications. Qualifiers: COPD type: emphysema Emphysema type: unspecified Qualified Code(s): J43.9 - Emphysema, unspecified (7) PAD (peripheral artery disease) Priority: Secondary Status: Chronic Comments: Chronic. Patient will start cilostazol 50 mg by mouth twice a day and follow up outpatient with his vascular surgeon. (8) DVT prophylaxis Priority: Secondary Status: Acute - Discharge Medications Prescriptions: Cilostazol [Pletal] 50 mg PO BID #60 tablet Isosorbide MONOnitrate (24 HR) [Imdur] 180 mg PO HS #90 tab.er.24h Home Medications: Albuterol Sulfate [Albuterol Inhaler] 2 puff IH QID PRN 09/24/15 [History] Carboxymethylcellulose Sodium [Refresh Plus] 1 drop BOTH EYES QID 09/24/15 [ History] Insulin Glargine [Lantus] 21 units SQ QAM 09/24/15 [History] Omeprazole [PriLOSEC] 20 mg PO DAILY 09/24/15 [History] Pyridoxine HCl [Vitamin B-6] 50 mg PO DAILY 09/24/15 [History] Terazosin [Hytrin] 2 mg PO HS 09/24/15 [History] Cholecalciferol (D-3) [Vitamin D] 2,000 unit PO DAILY 10/27/15 [History] Methocarbamol [Robaxin] 500 mg PO TID PRN 10/27/15 [History] Nitroglycerin [Nitrostat] 0.4 mg SL Q5M PRN 10/27/15 [History] Polyethylene Glycol 3350 [MiraLAX bowel prep] 17 gm PO DAILY PRN 10/27/15 [ History] Albuterol Neb [Proventil Neb] 2.5 mg IH QID PRN 12/14/16 [History] Carbidopa/Levodopa 10/100 [Sinemet 10/100] 1 each PO HS 12/14/16 [History] Docusate [Colace] 100 mg PO BID 12/14/16 [History] Gabapentin [Neurontin] 400 mg PO BID 12/14/16 [History] Gabapentin [Neurontin] 600 mg PO HS 12/14/16 [History] Lactose-Reduced Food [Ensure Plus] 1 bottle PO DAILY 12/14/16 [History] Losartan Potassium [Cozaar] 50 mg PO DAILY 12/14/16 [History] Aspirin Enteric Coated [Aspirin EC] 81 mg PO DAILY #30 tablet. 12/16/16 [Rx] Atorvastatin [Lipitor] 40 mg PO HS #30 tablet 12/16/16 [Rx] Clopidogrel [Plavix] 75 mg PO DAILY #30 tablet 12/16/16 [Rx] Albuterol Neb [Proventil Neb] 2.5 mg IH QID PRN 03/24/17 [History] Budesonide/Formoterol 160/4.5 [Symbicort 160/4.5] 2 puff IH BIDR 03/24/17 [ History] Furosemide [Lasix] 40 mg PO DAILY 03/24/17 [History] Metoprolol XL (24 HR) Succ [Toprol Xl] 50 mg PO DAILY 03/24/17 [History] PrednisoLONE Acetate 1% Opth [PredFORTE 1%] 1 drop LEFT EYE DAILY 03/24/17 [ History] Tramadol HCl [Ultram] 50 mg PO TID PRN 03/24/17 [History] Cilostazol [Pletal] 50 mg PO BID #60 tablet 03/26/17 [Rx] Isosorbide MONOnitrate (24 HR) [Imdur] 180 mg PO HS #90 tab.er.24h 03/26/17 [Rx] Allergies/Adverse Reactions: Allergies orphenadrine [From Norflex] Allergy (Verified 09/24/15 14:15) Rash ropinirole Adverse Reaction (Verified 12/14/16 16:39) Unknown [facility] Procedures/tests Complete & Pending: Procedures Performed prior 72 hours Category Date Time Status EV limited echo w enhance Routine Y 03/25/17 10:42 Completed Date of admission: 03/25/17 01:00 Primary care physician: Provider Unassigned Discharging clinician: Lili Quick Anticipated date of discharge: 03/26/17 - Patient Status Disposition: Home, Self-Care Condition: Good Functional capacity at discharge: independent ambulation Overall status at discharge: patient is back to baseline - Discharge Instructions Follow Up With: Unassigned,Provider [Primary Care Provider] - Additional Instructions: Please follow up with your family doctor for a follow up visit. Start your new medications today. Return to the ER for any new problems or concerns or if your pain returns. - Diet and Activity Activity: increase activity as tolerated Diet: advance to your usual diet Hospital course: Mr. Fletcher is a 87 year old male with a history of peripheral artery disease, hypertension, type 2 diabetes, coronary artery disease with stents, COPD, and chronic back pain. He was sent here from the NH for chest pain. Chest pain was diffuse upper chest with radiation to bilateral shoulders and posterior neck. He said it was a burning and a pressure that lasted for about 3 minutes. It has since resolved. Patient was at the NH admitted for a week and was treated for pneumonia and CHF. He states that he was home and had not yet returned to baseline when he began having chest pain. He was seen by cardiology and his Imdur was increased from 120 mg 280 mg daily. He was also started on Pletal 50 mg for claudication in his legs. Patient reports chronic back pain that he takes multiple medications for. 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 We discussed getting home care for her, he said that he has plenty of help at home. Chest pain has resolved. Echocardiogram showed an ejection fraction that was slightly improved from prior 50-55%. He will follow-up with cardiology outpatient. Patient is not experiencing a COPD exacerbation at this time. He will continue his home medications. A1c was 8.5, slightly elevated from December 2015. He will continue Accu-Cheks and insulin at home. Patient's reporting symptoms of claudication. He will be started on Pletal 50 mg daily and continue his statin. Patient has stage IV renal disease. GFR is 24, creatinine is 2.59. He will follow-up with Dr. Kaur when he has an appointment and avoid nephrotoxins and NSAIDs. Patient is anxious to return home to relieve family has been caring for his . His vital signs have remained stable. He is alert and oriented and physical exam is unremarkable. Patient is stable and appropriate for discharge. - Time Spent with Patient Total time spent providing and/or coordinating discharge services: Less than 30 minutes - Constitutional Vitals: Temp Pulse Resp BP Pulse Ox 98.1 F 60 15 133/62 90 03/26/17 10:54 03/26/17 10:54 03/26/17 10:54 03/26/17 10:54 03/26/17 10:54 General appearance: Present: cooperative, A&O X 3, pleasant, answers questions appropriately - Head Head exam: Present: normal inspection - Eye Eye exam: Present: EOMI, normal appearance, conjuntiva pink - ENT ENT exam: Present: mucous membranes moist, normal exam, normal oropharynx - Neck Neck exam general surgery: Present: normal inspection. Absent: lymphadenopathy , tenderness - Respiratory Respiratory exam: Absent: rales, rhonchi, stridor, wheezes - Cardiovascular Cardiovascular exam: Present: RRR, +S1, +S2. Absent: clicks, diastolic murmur, distant heart sounds, gallop, systolic murmur - GI/Abdominal GI/Abdominal exam: Present: soft. Absent: hepatomegaly, splenomegaly, tenderness - Neurological Exam Neurological exam: Present: alert, oriented X3, no focal deficits, strengths equal and symetr throughout. Absent: motor sensory deficit, facial droop, speech deficit
== END 2017-03-26 13:39 | disposition home or self-care (01) | DRG 313 ==
LOC: EMEROO 19:52 → 3BNU 19:52 → SUATTDRO 03-25 01:00
PROVIDERS: ADMIT Registered Nurse; ATTEND Internal Medicine

== ENCOUNTER 2018-01-22 17:12 | Inpatient (IN) ==
--- NOTE | 2018-01-22 17:18 | Emergency Department Note ---
Disposition Clinical Impression: CVA (cerebral vascular accident) Disposition: Admitted As Inpatient Condition: Fair General Adult HPI - General Stated complaint: Rule out CVA Time Seen by Provider: 01/22/18 17:17 - Related Data Home Medications Medication Instructions Recorded Confirmed Albuterol Sulfate [Albuterol 2 puff IH QID PRN 09/24/15 03/24/17 Inhaler] Carboxymethylcellulose Sodium 1 drop BOTH EYES QID 09/24/15 03/24/17 [Refresh Plus] Insulin Glargine [Lantus] 21 units SQ QAM 09/24/15 03/24/17 Omeprazole [PriLOSEC] 20 mg PO DAILY 09/24/15 03/24/17 Pyridoxine HCl [Vitamin B-6] 50 mg PO DAILY 09/24/15 03/24/17 Terazosin [Hytrin] 2 mg PO HS 09/24/15 03/24/17 Cholecalciferol (D-3) [Vitamin D] 2,000 unit PO DAILY 10/27/15 03/24/17 Methocarbamol [Robaxin] 500 mg PO TID PRN 10/27/15 03/24/17 Nitroglycerin [Nitrostat] 0.4 mg SL Q5M PRN 10/27/15 03/24/17 Polyethylene Glycol 3350 [MiraLAX 17 gm PO DAILY PRN 10/27/15 03/24/17 bowel prep] Albuterol Neb [Proventil Neb] 2.5 mg IH QID PRN 12/14/16 03/24/17 Carbidopa/Levodopa 10/ [Sinemet 1 each PO HS 12/14/16 03/24/17 10/] Docusate [Colace] 100 mg PO BID 12/14/16 03/24/17 Gabapentin [Neurontin] 400 mg PO BID 12/14/16 03/24/17 Gabapentin [Neurontin] 600 mg PO HS 12/14/16 03/24/17 Lactose-Reduced Food [Ensure Plus] 1 bottle PO DAILY 12/14/16 03/24/17 Losartan Potassium [Cozaar] 50 mg PO DAILY 12/14/16 03/24/17 Albuterol Neb [Proventil Neb] 2.5 mg IH QID PRN 03/24/17 03/24/17 Budesonide/Formoterol 160/4.5 2 puff IH BIDR 03/24/17 03/24/17 [Symbicort 160/4.5] Furosemide [Lasix] 40 mg PO DAILY 03/24/17 03/24/17 Metoprolol XL (24 HR) Succ [Toprol 50 mg PO DAILY 03/24/17 03/24/17 Xl] PrednisoLONE Acetate 1% Opth 1 drop LEFT EYE DAILY 03/24/17 03/24/17 [PredFORTE 1%] Tramadol HCl [Ultram] 50 mg PO TID PRN 03/24/17 03/24/17 Previous Rx's Medication Instructions Recorded Aspirin Enteric Coated [Aspirin EC] 81 mg PO DAILY #30 tablet. 12/16/16 Atorvastatin [Lipitor] 40 mg PO HS #30 tablet 12/16/16 Clopidogrel [Plavix] 75 mg PO DAILY #30 tablet 12/16/16 Cilostazol [Pletal] 50 mg PO BID #60 tablet 03/26/17 Isosorbide MONOnitrate (24 HR) 180 mg PO HS #90 tab.er.24h 03/26/17 [Imdur] Allergies Allergy/AdvReac Type Severity Reaction Status Date / Time orphenadrine [From Norflex] Allergy Rash Verified 01/22/18 17:14 ropinirole AdvReac Unknown Verified 01/22/18 17:14 Past Medical History - Past Medical History Medical history: Reports: CHF, COPD, CVA, diabetes, hyperlipidemia, hypertension , malignancy, renal disease, other Surgical history: Reports: angioplasty/stent, cholecystectomy, pacemaker/AICD, other Psychiatric history: Reports: no psych history - Social History Smoking Status: Former smoker Smokeless Tobacco Status: No Alcohol use: Reports: none Drug use: Reports: none Course Vital Signs Temperature 97.9 F 01/22/18 17:20 Pulse Rate 84 01/22/18 17:20 Respiratory Rate 14 01/22/18 17:20 Blood Pressure 129/78 01/22/18 17:20 O2 Sat by Pulse Oximetry 96 01/22/18 17:20 Temperature 97.9 F 01/22/18 17:20 Pulse Rate 61 01/22/18 17:52 Respiratory Rate 15 01/22/18 17:52 Blood Pressure 166/72 01/22/18 17:52 O2 Sat by Pulse Oximetry 100 03/25/18 17:27 Oxygen Delivery Oxygen Delivery Nasal Cannula Medical Decision Making - Lab Data Lab Results 01/22/18 Range/Units 17:45 Urine Color Yellow (Yellow) Urine Clarity Clear (Clear) Urine pH 6.5 (5.0-8.0) pH Units Ur Specific [place] 1.016 (1.010-1.025) Urine Protein Negative (Neg-Trace) mg/dL Urine Glucose (UA) 100 H (Normal) mg/dL Urine Ketones Negative (Negative) mg/dL Urine Blood Negative (Negative) Urine Nitrite Negative (Negative) Urine Bilirubin Negative (Negative) Urine Urobilinogen Normal (Normal) mg/dL Ur Leukocyte Esterase Negative (Negative) Ur Culture Indicated? NO (NO) Attestation Statement - Attestation Attestation: I examined this patient and my medical decision-making was reviewed with the Resident Physician. I agree with the documented findings, disposition and treatment plan as described except to the extent set forth below. [id number] time provided Patient arrives from the [facility] as a transfer for concerns of transient neurologic symptoms. The patient states he is symptom free at the time of arrival here. He appears in no acute distress. MI chart including baseline home medication list reviewed by me
--- NOTE | 2018-01-22 17:36 | Emergency Department Note ---
Disposition Clinical Impression: CVA (cerebral vascular accident) Qualifiers: CVA mechanism: unspecified Qualified Code(s): I63.9 - Cerebral infarction, unspecified Disposition: Admitted As Inpatient Condition: Fair Forms: ED Satisfaction Letter Time of Disposition: 18:26 General Adult HPI - General Chief complaint: ED Neuro Symptoms/Deficit Stated complaint: Rule out CVA Time Seen by Provider: 01/22/18 17:17 Source: EMS Mode of arrival: ambulatory Limitations: no limitations Nursing Notes Reviewed: Yes Vital Signs Reviewed: Yes - History of Present Illness HPI Narrative: 87-year-old male presented to the emergency department from the [place] for possible CVA. Patient said 2 days ago he started to have facial droop as well as some confusion and some slurred speech. He said he also had left-sided weakness. They went to the [place] urgent care and they did labs and sent him home and have him follow-up with primary care physician. They again had symptoms today said symptoms of time of onset was earlier this morning around 8 AM. They said the symptoms almost resolved at this time. Does not have a history of this. He is having no other symptoms including no headaches, blurry vision, neck pain, back pain, fevers, chills, nausea, vomiting, chest pain, shortness of breath, abdominal pain, pain with urination, changes in bowel movement, pain or tingling in any arms or legs or generalized weakness. Pain Scale: 0 - Related Data Home Medications Medication Instructions Recorded Confirmed Albuterol Sulfate [Albuterol 2 puff IH QID PRN 09/24/15 03/24/17 Inhaler] Carboxymethylcellulose Sodium 1 drop BOTH EYES QID 09/24/15 03/24/17 [Refresh Plus] Insulin Glargine [Lantus] 21 units SQ QAM 09/24/15 03/24/17 Omeprazole [PriLOSEC] 20 mg PO DAILY 09/24/15 03/24/17 Pyridoxine HCl [Vitamin B-6] 50 mg PO DAILY 09/24/15 03/24/17 Terazosin [Hytrin] 2 mg PO HS 09/24/15 03/24/17 Cholecalciferol (D-3) [Vitamin D] 2,000 unit PO DAILY 10/27/15 03/24/17 Methocarbamol [Robaxin] 500 mg PO TID PRN 10/27/15 03/24/17 Nitroglycerin [Nitrostat] 0.4 mg SL Q5M PRN 10/27/15 03/24/17 Polyethylene Glycol 3350 [MiraLAX 17 gm PO DAILY PRN 10/27/15 03/24/17 bowel prep] Albuterol Neb [Proventil Neb] 2.5 mg IH QID PRN 12/14/16 03/24/17 Carbidopa/Levodopa [Sinemet 1 each PO HS 12/14/16 03/24/17 10] Docusate [Colace] 100 mg PO BID 12/14/16 03/24/17 Gabapentin [Neurontin] 400 mg PO BID 12/14/16 03/24/17 Gabapentin [Neurontin] 600 mg PO HS 12/14/16 03/24/17 Lactose-Reduced Food [Ensure Plus] 1 bottle PO DAILY 12/14/16 03/24/17 Losartan Potassium [Cozaar] 50 mg PO DAILY 12/14/16 03/24/17 Albuterol Neb [Proventil Neb] 2.5 mg IH QID PRN 03/24/17 03/24/17 Budesonide/Formoterol 160/4.5 2 puff IH BIDR 03/24/17 03/24/17 [Symbicort 160/4.5] Furosemide [Lasix] 40 mg PO DAILY 03/24/17 03/24/17 Metoprolol XL (24 HR) Succ [Toprol 50 mg PO DAILY 03/24/17 03/24/17 Xl] PrednisoLONE Acetate 1% Opth 1 drop LEFT EYE DAILY 03/24/17 03/24/17 [PredFORTE 1%] Tramadol HCl [Ultram] 50 mg PO TID PRN 03/24/17 03/24/17 Previous Rx's Medication Instructions Recorded Aspirin Enteric Coated [Aspirin EC] 81 mg PO DAILY #30 tablet. 12/16/16 Atorvastatin [Lipitor] 40 mg PO HS #30 tablet 12/16/16 Clopidogrel [Plavix] 75 mg PO DAILY #30 tablet 12/16/16 Cilostazol [Pletal] 50 mg PO BID #60 tablet 03/26/17 Isosorbide MONOnitrate (24 HR) 180 mg PO HS #90 tab.er.24h 03/26/17 [Imdur] Allergies Allergy/AdvReac Type Severity Reaction Status Date / Time orphenadrine [From Norflex] Allergy Rash Verified 01/22/18 17:14 ropinirole AdvReac Unknown Verified 01/22/18 17:14 Review of Systems: 10 point review of systems done and negative unless otherwise stated in the history of present illness. All systems ED: reviewed and negative except as stated. Review of Systems: As Per HPI Past Medical History - Past Medical History Attestation: Yes The following information was validated with the patient. Medical history: Reports: CHF, COPD, CVA, diabetes, hyperlipidemia, hypertension , malignancy, renal disease, other Surgical history: Reports: angioplasty/stent, cholecystectomy, pacemaker/AICD, other Psychiatric history: Reports: no psych history - Social History Smoking Status: Former smoker Smokeless Tobacco Status: No Alcohol use: Reports: none Drug use: Reports: none Physical Exam - General Limitations: no limitations General appearance: alert, in no apparent distress - Head Head exam: atraumatic, normocephalic, normal inspection - Eye Eye exam: Present: normal appearance, PERRL, EOMI - ENT ENT exam: normal exam, normal oropharynx, mucous membranes moist - Neck Neck exam: Present: normal inspection, full ROM, trachea midline - Chest Chest inspection: Present: normal inspection, symmetric chest wall rise - Respiratory Respiratory exam: Present: normal lung sounds bilaterally - Cardiovascular Cardiovascular exam: Present: regular rate, normal rhythm, normal heart sounds - Abdominal Exam Abdominal exam: Present: soft, Non-Tender. Absent: tenderness, distention, guarding, rebound, rigidity - Extremities Exam Extremities exam: Present: normal inspection, full ROM. Absent: tenderness, pedal edema - Expanded Lower Extremity Exam Neurovascular/Tendon exam: Present: normal capillary refill. Absent: pulse deficit, motor deficit, sensory deficit, tendon deficit - Back Exam Back exam: Present: normal inspection, full ROM. Absent: tenderness, CVA tenderness (R), CVA tenderness (L) - Neurological Exam Neurological exam: Present: alert, oriented X3, CN II-XII intact. Absent: motor sensory deficit - Expanded Neurological Exam Patient oriented to: Present: person, place, time Speech: Present: fluid speech Cranial nerves: EOM function (II, III, IV, ): Normal, facial sensation (V): Normal, facial palsy (VII): Normal, spinal accessory function (XI): Normal, tongue deviation (XII): Normal Cerebellar function: normal gait Motor strength - LUE: 5/5 Motor strength - RUE: 5/5 Motor strength - LLE: 5/5 Motor strength - RLE: 5/5 Upper motor neuron exam: david neglect: Absent bilaterally, pronator drift: Absent bilaterally Sensory exam upper extremity: light touch: Normal Sensory exam lower extremity: light touch: Normal Coma Scale Eye Opening: Spontaneous Coma Scale Motor Response: Obeys Commands Coma Scale Verbal Response: Oriented Coma Scale Total: 15 Course Course Narrative: 87-year-old male presents to the emergency department for CVA came from the [place]. They did lab work there. He does have history of elevated creatinine with chronic kidney disease otherwise was labs are all normal. We did a urinalysis and a CT as well as a chest x-ray and those were not done at the [place] facility. Most likely disposition will be admission. Vital Signs Temperature 97.9 F 01/22/18 17:20 Pulse Rate 84 01/22/18 17:20 Respiratory Rate 14 01/22/18 17:20 Blood Pressure 129/78 01/22/18 17:20 O2 Sat by Pulse Oximetry 96 01/22/18 17:20 Temperature 97.9 F 01/22/18 17:20 Pulse Rate 61 01/22/18 17:52 Respiratory Rate 15 01/22/18 17:52 Blood Pressure 166/72 01/22/18 17:52 O2 Sat by Pulse Oximetry 100 01/22/18 17:27 Oxygen Delivery Oxygen Delivery Nasal Cannula Medical Decision Making - [facility] Narrative Medical decision making narrative: 87-year-old male here for possible CVA. Neurologically he is intact. Psych he is normalized. NIH score is 0. Last known well is outside the window to call a stroke alert was not called. CT had no acute head bleeds chest x-ray was normal otherwise urine was normal on the [facility] Spoke with the hospitalist who agreed to admit the patient to their service. Patient is currently in stable condition at this time. Family agree with this plan for admission to further examine this patient and evaluate them neurologically. - Medical Records Medical records reviewed: Yes I reviewed the patient's medical records. - Lab Data Lab results reviewed: Yes I reviewed the patient's lab results. Lab Results 01/22/18 Range/Units 17:45 Urine Color Yellow (Yellow) Urine Clarity Clear (Clear) Urine pH 6.5 (5.0-8.0) pH Units Ur Specific [place] 1.016 (1.010-1.025) Urine Protein Negative (Neg-Trace) mg/dL Urine Glucose (UA) 100 H (Normal) mg/dL Urine Ketones Negative (Negative) mg/dL Urine Blood Negative (Negative) Urine Nitrite Negative (Negative) Urine Bilirubin Negative (Negative) Urine Urobilinogen Normal (Normal) mg/dL Ur Leukocyte Esterase Negative (Negative) Ur Culture Indicated? NO (NO) - Radiology Data Radiology results reviewed: Yes I reviewed the patient's radiology results.
[2018-01-22 17:56] LABS: Bilirubin,Urine Negative (Negative); Blood,Urine Negative (Negative); Clarity,Urine Clear (Clear); Color,Urine Yellow (Yellow); Glucose,Urine (UA) 100 mg/dL (Normal); Ketones,Urine Negative (Negative); Leukocyte Esterase,Urine Negative (Negative); Nitrite,Urine Negative (Negative); PH,Urine 6.5 pH Units (5.0-8.0); Protein,Urine Negative (Neg-Trace); Specific Gravity,Urine 1.016 (1.010-1.025); Urobilinogen,Urine Normal (Normal)
[2018-01-22] MEDS ORDERED: Naloxone 0.4 MG/ML INJ IVP PRN (19:55)
[2018-01-22] MEDS ORDERED: Acetaminophen 325 MG TABLET PO PRN (19:55)
[2018-01-22] MEDS ORDERED: Dextrose Gel 15 GM PO PRN ×2 (20:01)
[2018-01-22] MEDS ORDERED: D5% in Water 1,000 ML IVC PRN (20:01)
[2018-01-22] MEDS ORDERED: *HR* Dextrose 50 % in Water (Syg) 50 ML SYRINGE IVP PRN (20:01)
--- NOTE | 2018-01-22 20:11 | Internal Med History&Physical ---
<Rodrigo Medina - Last Filed: 01/23/18 03:55> Date of Encounter: 01/23/18 Time of Encounter: 19:10 Assessment and Plan (1) TIA (transient ischemic attack) Current visit: Yes Status: Acute Reporting intermittent symptoms for the past 3 days. He states that when he wakes up in the morning his left arm is numb and weak, but then well returned to normal after about 30 minutes. He denies current symptoms. Neuro exam normal , no focal deficits CT shows no acute abnormality - Mild cerebral atrophy with mild periventricular white matter small vessel ischemic disease - Encephalomalacia changes involve the right frontal and posterior parietal lobes likely due to old infarcts ECG shows paced rhythm with no acute changes CXR shows new subtle right upper lobe airspace disease atelectasis or pneumonia - afebrile, no dyspnea, no leukocytosis Continue aspirin, statin Neuro checks q4h PT/OT evaluation Neuro consult for further recommendations Qualifiers: Transient cerebral ischemia type: unspecified Qualified Code(s): G45.9 - Transient cerebral ischemic attack, unspecified (2) Hypertension Current visit: Yes Status: Chronic Normotensive. Continue home medications Qualifiers: Hypertension type: essential hypertension Qualified Code(s): I10 - Essential (primary) hypertension (3) Diabetes mellitus Current visit: Yes Status: Chronic Levemir 20 units daily, low dose SSI, and accuchecks with meals Qualifiers: Diabetes mellitus type: type 2 Diabetes mellitus residential insulin use: without joint terminal attack controller use Diabetes mellitus complication status: with neurologic complications Diabetes mellitus complication detail: with polyneuropathy Qualified Code(s): E11.42 - Type 2 diabetes mellitus with diabetic polyneuropathy (4) Diastolic heart failure Current visit: Yes Status: Acute Does not appear to be in acute exacerbation. No dyspnea, no crackles on lung exam, no increasing lower extremity edema Qualifiers: Heart failure chronicity: chronic Qualified Code(s): I50.32 - Chronic diastolic (congestive) heart failure (5) COPD (chronic obstructive pulmonary disease) Current visit: Yes Status: Chronic Does not appear to be in acute exacerbation. Bronchodilators as needed. Qualifiers: COPD type: emphysema Emphysema type: unspecified Qualified Code(s): J43.9 - Emphysema, unspecified (6) CKD (chronic kidney disease) stage 4, GFR 15-29 ml/min Current visit: Yes Status: Chronic Avoid nephrotoxins. Renally dose medications as needed. Continue to monitor (7) DVT prophylaxis Current visit: Yes Status: Acute Subq heparin Internal Medicine - H&P: HPI Chief complaint: Rule out CVA Admitted From: Emergency Dept History of present illness: Mr. Fletcher is a 87 year old male with PMH of CHF, CAD s/p stent and pacemaker, COPD, diabetes, hypertension, hyperlipidemia, and CKD stage IV, presented the emergency department with concerns for possible CVA. He reports a 3 day history of intermittent left upper extremity weakness. He was evaluated at [place] urgent care for these symptoms yesterday, but they had resolved. He reports that he had left upper extremity weakness again this morning around 0800, but his symptoms resolved about an hour later after he exercises his hand. He reports some associated confusion, generalized fatigue, and slurred speech. Upon chart review there is also concern for some facial drooping. He denies any current symptoms. He states that he feels like his legs are always weak, and he uses a wheelchair due to prior back injury and problems with his feet. Denies changes in leg weakness. He denies fevers, chills, headache, change in vision, trouble swallowing, loss of sensation, numbness, tingling, neck pain, chest pain, dyspnea, cough, abdominal pain, nausea, vomiting, change in bowels, dysuria, or leg pain/swelling. Past Med Surg Social Fam HX - Past Medical History Medical history: CHF, COPD, CVA, diabetes, hyperlipidemia, hypertension, malignancy, renal disease, other Psychiatric history: no psych history - Past Surgical History Surgical History: angioplasty/stent, cholecystectomy, pacemaker/AICD, other - Social History Smoking Status: Former smoker Smokeless Tobacco Status: No Alcohol use: none Drug use: none - Family History Father Adopted: No Family Member Ethnicity: Non- Living Status: Hx Family Cardiac Disorders: Yes Hx Family Respiratory Disorders: No Hx Family Cancer: No Hx Family GI Disorders: No Hx Family Endocrine Disorder: No Hx Family Neuromuscular Disorders: No Hx Family Neurologic Disorders: Yes Hx Family HEENT Disorders: No Hx Family Autoimmune Disorders: No Internal Medicine - H&P: Meds Albuterol Sulfate [Albuterol Inhaler] 2 puff IH QID PRN 09/24/15 [History] Carboxymethylcellulose Sodium [Refresh Plus] 1 drop BOTH EYES QID 09/24/15 [ History] Insulin Glargine [Lantus] 24 units SQ QAM 09/24/15 [History] Omeprazole [PriLOSEC] 20 mg PO DAILY 09/24/15 [History] Pyridoxine HCl [Vitamin B-6] 50 mg PO DAILY 09/24/15 [History] Methocarbamol [Robaxin] 500 mg PO TID PRN 10/27/15 [History] Nitroglycerin [Nitrostat] 0.4 mg SL Q5M PRN 10/27/15 [History] Polyethylene Glycol 3350 [MiraLAX bowel prep] 17 gm PO DAILY PRN 10/27/15 [ History] Albuterol Neb [Proventil Neb] 2.5 mg IH QID PRN 12/14/16 [History] Docusate [Colace] 100 mg PO BID 12/14/16 [History] Gabapentin [Neurontin] 400 mg PO BID 12/14/16 [History] Gabapentin [Neurontin] 600 mg PO HS 12/14/16 [History] Losartan Potassium [Cozaar] 50 mg PO DAILY 12/14/16 [History] Aspirin Enteric Coated [Aspirin EC] 81 mg PO DAILY #30 tablet. 12/16/16 [Rx] Budesonide/Formoterol 160/4.5 [Symbicort 160/4.5] 2 puff IH BIDR 03/24/17 [ History] Furosemide [Lasix] 40 mg PO DAILY 03/24/17 [History] Metoprolol XL (24 HR) Succ [Toprol Xl] 50 mg PO DAILY 03/24/17 [History] Isosorbide MONOnitrate (24 HR) [Imdur] 180 mg PO HS #90 tab.er.24h 03/26/17 [Rx] Atorvastatin [Lipitor] 10 mg PO HS 01/23/18 [History] Linagliptin [Tradjenta] 5 mg PO DAILY 01/23/18 [History] Potassium Chloride [Klor-Con 10] 10 meq PO DAILY 01/23/18 [History] Tamsulosin [Flomax] 0.4 mg PO DAILY 01/23/18 [History] Tiotropium [Spiriva] 18 mcg IH 0700 01/23/18 [History] 3 Allergy/AdvReac Type Severity Reaction Status Date / Time orphenadrine [From Norflex] Allergy Rash Verified 01/22/18 17:14 ropinirole AdvReac Unknown Verified 01/22/18 17:14 All Systems PM: A 10-system review of systems was performed and is negative for pertinent findings except as documented above in the HPI. - Constitutional Vitals: Temp Pulse Resp BP Pulse Ox 97.9 F 63 18 156/58 96 01/22/18 17:20 01/22/18 19:56 01/22/18 19:56 01/22/18 19:56 01/22/18 19:56 General appearance: Present: A&O X 3, no acute distress, answers questions appropriately - Head Head exam: Present: atraumatic, normocephalic - Eye Eye exam: Present: EOMI, PERRL, conjuntiva pink, sclera anicteric Pupils: Present: PERRL - Neck Neck exam general surgery: Present: supple, trachea midline. Absent: lymphadenopathy - Respiratory Respiratory exam: Present: wheezes (Mild expiratory throughout). Absent: accessory muscle use, CTAB, rales, rhonchi - Cardiovascular Cardiovascular exam: Present: RRR, +S1, +S2. Absent: diastolic murmur, systolic murmur - GI/Abdominal GI/Abdominal exam: Present: normal bowel sounds, soft, no peritoneal signs. Absent: distended, tenderness - Extremities Exam Extremities exam: Present: warm, radial pulses palpable and symmetrical. Absent : calf tenderness, cyanotic, pedal edema - Neurological Exam Neurological exam: Present: CN II-XII intact, oriented X3, no focal deficits. Absent: pronater drift, facial droop, speech deficit - Expanded Neurological Exam Patient oriented to: Present: person, place, time Speech: Present: fluid speech Upper motor neuron: Dyllan neglect: Normal, pronator drift: Normal, sensory extinction: Normal Sensory exam: lower extremity light touch: Normal, upper extremity light touch: Normal Neuro motor strength exam: LUE: 5, RUE: 5, LLE: 5, RLE: 5 DTR: patellar (L): 1+, patellar (R): 1+ - Skin Skin exam: Present: dry, intact Additional comments: Diabetic foot ulcers bilaterally <Noreen Sharma - Last Filed: 01/23/18 20:52> Date of Encounter: 01/22/18 Internal Medicine - H&P: HPI History of present illness: Mr. Fletcher is a 87 year old male All Systems PM: A 10-system review of systems was performed and is negative for pertinent findings except as documented above in the HPI. - Constitutional Vitals: Temp Pulse Resp BP Pulse Ox 98.4 F 63 15 179/69 98 01/23/18 18:42 01/23/18 18:42 01/23/18 20:34 01/23/18 18:42 01/23/18 20:34 Internal Med - H&P Results - Labs CBC & Chem 7: 01/23/18 03:08 01/23/18 03:08 - Impressions ITS Impressions Head CT 01/23/18 15:00 IMPRESSION: No acute intracranial abnormality. D/ / Curt Ribeiro / Curt Ribeiro Interpreting Provider: Curt Ribeiro Soft Tissue Neck CT 01/23/18 15:00 IMPRESSION: No evidence of acute abnormality involving the neck soft tissues. Evaluation limited without IV contrast. Findings compatible with pulmonary edema. Left pleural effusion is partially visualized. D/ / Jaswinder Gong MD / Jaswinder Gong MD Interpreting Provider: Jaswinder Gong MD - Attending Attestation I personally and independently interviewed and examined the patient on with the resident. I reviewed the patient's medical record with the resident. I am in agreement with the resident assessment and proposed treatment plan. I have discussed my finding and recommendation with the patient and answer all questions. The agents medical records was admitted to accurately reflect the encounter.
[2018-01-22] MEDS: Insulin DETEMIR 100 UNIT/ML X5UNITS SQ SCH (21:01)
[2018-01-22] MEDS: Insulin LISPRO 300 UNITS/3 ML VIAL SQ SCH (21:01)
[2018-01-22] MEDS ORDERED: Nitroglycerin 0.4 MG TAB.SUBL SL PRN (21:43)
[2018-01-22] MEDS: *HR* Heparin 5,000 UNIT/ML VIAL SQ SCH (22:49)
[2018-01-22] MEDS: Budesonide/Formoterol 160/4.5 MDI IH SCH (22:52)
[2018-01-22] MEDS ORDERED: Ipratropium/Albuterol Neb 3 ML IH PRN (23:50)
[2018-01-23] MEDS: *HR* Heparin 5,000 UNIT/ML VIAL SQ SCH ×3 (05:05→21:18)
[2018-01-23 05:06] LABS: Basophils # 0.1 K/mcL (0.0-0.2); Basophils % 1.1 %; Eosinophils # 0.3 K/mcL (0.0-0.6); Eosinophils % 3.6 %; Hematocrit 29.3 % (37.5-50.1); Immature Granulocytes % 0.5 % (0-4); Lymphocytes # 2.2 K/mcL (0.6-4.6); Lymphocytes % 27.6 %; Mean Corpuscular HGB Conc 30.7 g/dL (31.6-35.5); Mean Corpuscular Hemoglobin 29.1 pg (28.0-33.3); Mean Corpuscular Volume 94.8 fL (83.0-100.0); Mean Platelet Volume 10.9 fL (9.4-12.4); Monocytes # 0.7 K/mcL (0.0-1.3); Monocytes % 8.7 %; Neutrophils # 4.7 K/mcL (1.6-8.9); Platelet Count 210 K/mcL (140-400); Red Blood Count 3.09 M/mcL (4.19-5.50); Red Cell Distribution Width 13.6 % (11.5-14.5); Segmented Neutrophils % 58.5 %
[2018-01-23 05:20] LABS: Calcium 8.3 mg/dL (8.6-10.3); Magnesium 2.9 mg/dL (1.6-2.6); Phosphorous 4.7 mg/dL (2.7-4.5); Potassium 4.1 mEq/L (3.5-5.1)
[2018-01-23] MEDS: Budesonide/Formoterol 160/4.5 MDI IH SCH ×2 (08:08→20:34)
[2018-01-23] MEDS: Insulin LISPRO 300 UNITS/3 ML VIAL SQ SCH ×4 (08:11→21:19)
[2018-01-23] MEDS: Metoprolol XL (24 HR) Succ 50 MG TAB.ER.24H PO SCH (08:12)
[2018-01-23] MEDS: Furosemide 40 MG TABLET PO SCH (08:12)
[2018-01-23] MEDS: Aspirin Enteric Coated 81 MG Tablet PO SCH (08:12)
[2018-01-23] MEDS: Cholecalciferol (D-3) 1,000 UNIT TABLET PO SCH (08:13)
[2018-01-23] MEDS: traMADol 50 MG TABLET PO PRN ×2 (08:18→21:23)
[2018-01-23] MEDS ORDERED: Gabapentin 300 MG CAPSULE PO ONE (09:12)
--- NOTE | 2018-01-23 12:00 | Internal Med Progress Note ---
Date of Encounter: 01/23/18 Time of Encounter: 11:58 - Assessment and plan (1) TIA (transient ischemic attack) Current Visit: Yes Status: Acute Assessment and plan: Patient reported intermittent symptoms for the past 3 days with left arm numbness and weakness in the a.m. upon awakening but then would return to normal after 30 minutes. Normal neurological exam No focal deficits History of atrial fibrillation with current EcG showing paced rhythm no acute changes CT of the head showed no acute abnormalities but reported mild cerebral atrophy with mild periventricular white matter small vessel ischemic disease. 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 Continue aspirin and statin Neuro checks every 4 hours PT OT evaluation pacemaker so no MRI Neuro consult for further recommendations Qualifiers: Transient cerebral ischemia type: unspecified Qualified Code(s): G45.9 - Transient cerebral ischemic attack, unspecified (2) Diastolic heart failure Current Visit: Yes Status: Acute Assessment and plan: Not exacerbated Repeat echocardiogram intake and output Daily weights Continue home lasix Qualifiers: Heart failure chronicity: chronic Qualified Code(s): I50.32 - Chronic diastolic (congestive) heart failure (3) CKD (chronic kidney disease) stage 4, GFR 15-29 ml/min Current Visit: Yes Status: Chronic Assessment and plan: Patient is a above his baseline of 2.39 to 2.64. avoid nephrotoxic agents continue renal diet Follows with Dr. Valencia (4) COPD (chronic obstructive pulmonary disease) Current Visit: Yes Status: Chronic Assessment and plan: Non-exacerbated Continue home bronchodilators Qualifiers: COPD type: emphysema Emphysema type: unspecified Qualified Code(s): J43.9 - Emphysema, unspecified (5) Diabetes mellitus Current Visit: Yes Status: Chronic Assessment and plan: Glucose 187 on fasting, 208 at point of care Patient on Levemir 20 units subcutaneous at bedtime and low-dose sliding scale Humalog protocol at bedtime and before meals. hemoglobin A1c 8.5 Qualifiers: Diabetes mellitus type: type 2 Diabetes mellitus terminal make up operator insulin use: without terminal make up operator use Diabetes mellitus complication status: with neurologic complications Diabetes mellitus complication detail: with polyneuropathy Qualified Code(s): E11.42 - Type 2 diabetes mellitus with diabetic polyneuropathy (6) Hypertension Current Visit: Yes Status: Chronic Assessment and plan: Blood pressure is stable, continue home medications Qualifiers: Hypertension type: essential hypertension Qualified Code(s): I10 - Essential (primary) hypertension (7) DVT prophylaxis Current Visit: Yes Status: Acute Assessment and plan: Subcutaneous heparin (8) Abnormal chest xray Current Visit: Yes Status: Acute Assessment and plan: Chest x-ray reported new septal right upper lobe airspace disease either due to atelectasis or pneumonia. Recommend chest radiograph in 8 weeks to confirm resolution add incentive spirometry Patient is afebrile with normal white count Follow fever and WBCs curve (9) Anemia Current Visit: Yes Status: Acute Assessment and plan: Patient is below his baseline No signs of bleeding Urinalysis is negative for blood We will check a stool for occult blood May be due to chronic kidney disease Hemetology workup Qualifiers: Anemia type: unspecified type Qualified Code(s): D64.9 - Anemia, unspecified (10) Diabetic foot ulcer Current Visit: No Status: Acute Assessment and plan: Follows with Dr Richard outpatient Wound care consult Boot in place small area on 5th toe as well Qualifiers: Diabetic foot ulcer location: heel Diabetes mellitus type: type 2 Laterality: left Non-pressure ulcer stage: with fat layer exposed Qualified Code(s): E11.621 - Type 2 diabetes mellitus with foot ulcer; L97.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 His legs are "jumping". He states his medications have not been given yet this morning. He denies any headache, visual changes, chest pain, shortness of breath and states that his upper extremities are with normal at this time. - Constitutional Vitals: Temp Pulse Resp BP Pulse Ox 97.6 F 67 20 158/60 95 01/23/18 11:03 01/23/18 11:03 01/23/18 11:03 01/23/18 11:03 01/23/18 11:03 General appearance: Present: cooperative, A&O X 3, pleasant, answers questions appropriately - Head Head exam: Present: atraumatic, normocephalic - Eye Eye exam: Present: PERRL, conjuntiva pink, sclera anicteric Pupils: Present: PERRL - Neck Neck exam general surgery: Present: supple, trachea midline. Absent: lymphadenopathy - Respiratory Respiratory exam: Present: decreased breath sounds. Absent: accessory muscle use, rales, rhonchi, wheezes - Cardiovascular Cardiovascular exam: Present: RRR, +S1, +S2. Absent: diastolic murmur, gallop, rubs, systolic murmur - GI/Abdominal GI/Abdominal exam: Present: normal bowel sounds, soft, no peritoneal signs. Absent: distended, tenderness - Extremities Exam Extremities exam: Present: warm, radial pulses palpable and symmetrical. Absent : calf tenderness, cyanotic Additional comments: Trace edema lower extremities - Neurological Exam Neurological exam: Present: CN II-XII intact, oriented X3, no focal deficits. Absent: pronater drift, facial droop, speech deficit - Skin Skin exam: Present: dry, normal color, warm Additional comments: bandaid on left lower arm is dry and intact rom boot left foot for heel wound followed outpatient Internal Medicine: Result - Labs CBC & Chem 7: 01/23/18 03:08 01/23/18 03:08 Labs: Short CBC 01/23/18 Range/Units 03:08 WBC 8.1 (4.3-11.1) K/mcL Hgb 9.0 L (12.9-16.9) g/dL Hct 29.3 L (37.5-50.1) % Plt Count 210 (140-400) K/mcL Neutrophils # 4.7 (1.6-8.9) K/mcL BMP 01/23/18 03:08 Sodium 136 Potassium 4.1 Chloride 99 Carbon Dioxide 30 H BUN 47 H Creatinine 2.98 H Glucose 187 H Calcium 8.3 L Consult Discharge Plan - Plan [facility]errals: [facility] [Primary Care Provider] -
--- NOTE | 2018-01-23 14:38 | Oncology Inp Consult Note ---
<Suzanne Gomez L - Last Filed: 01/24/18 10:25> Date of Encounter: 01/23/18 Time of Encounter: 14:38 Assessment and Plan (1) Anemia Status: Acute Assessment and plan: Mild anemia, hgb 9 today, 2.5 gm drop over past 2 days. Baseline anemia of chronic disease-CKD stage IV and CHF. Agree with guiac stool. Further workup includes- B12, Folate, Iron panel, ferritin, LDH, haptoglobin, SPEP and serum free light chains. Continue to monitor CBC. Agree with PT/OT evaluations for d/c planning. TIA-CT head without acute abnormality but reported mild cerebral atrophy with mild periventricular white matter small vessel ischemic disease. 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 Awaiting neurology consult for further recommendations. On asa and statin Heparin for DVT prophylaxis. Please refer to Dr. Casillas's attestation below for additional details. Qualifiers: Anemia type: unspecified type Qualified Code(s): D64.9 - Anemia, unspecified - Data of Consult Patient: new to practice Consult date: 01/23/18 Requesting Physician: Del De La Cruz MD Primary Care Provider: [facility] - Consult Narrative Reason for consult: Anemia History of present illness: Mr. Fletcher is a 87 year old male with past medical history significant for CHF , CAD s/p stent and pacemaker, COPD, diabetes, hypertension, hyperlipidemia, and CKD stage IV. He presented to [facility] ED on 01/22/2018 with report of 3 day history of intermittent LUE weakness. He reports some associated confusion, generalized fatigue, and slurred speech. He denies associated symptoms since his admission. Head CT with no acute abnormality. Awaiting neurology recommendations. On ASA and statin, DVT prophylaxis with Heparin. CKD Stage IV. Follows Dr. Valencia. He lives at home with his and daughter. 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 He reports increased fatigue over the past 3-4 weeks to the point where he spends most of the day in a wheelchair at home. This is partially due to weakness and partially due to diabetic foot ulcers. He is a prior smoker, cannot recall how much her smoked how long or when he quit. He denies appetite changes, weight loss, fever, chills or night sweats. Reports fatigue. Past Med Surg Social Fam HX - Past Medical History Medical history: CHF, COPD, CVA, diabetes, hyperlipidemia, hypertension, malignancy, renal disease, other Psychiatric history: no psych history - Past Surgical History Surgical History: angioplasty/stent, cholecystectomy, pacemaker/AICD, other - Social History Smoking Status: Former smoker Smokeless Tobacco Status: No Alcohol use: none Drug use: none - Family History Father Adopted: No Family Member Ethnicity: Non- Living Status: Hx Family Cardiac Disorders: Yes Hx Family Respiratory Disorders: No Hx Family Cancer: No Hx Family GI Disorders: No Hx Family Endocrine Disorder: No Hx Family Neuromuscular Disorders: No Hx Family Neurologic Disorders: Yes Hx Family HEENT Disorders: No Hx Family Autoimmune Disorders: No Medications and Allergies Albuterol Sulfate [Albuterol Inhaler] 2 puff IH QID PRN 09/24/15 [History] Carboxymethylcellulose Sodium [Refresh Plus] 1 drop BOTH EYES QID 09/24/15 [ History] Insulin Glargine [Lantus] 24 units SQ QAM 09/24/15 [History] Omeprazole [PriLOSEC] 20 mg PO DAILY 09/24/15 [History] Pyridoxine HCl [Vitamin B-6] 50 mg PO DAILY 09/24/15 [History] Methocarbamol [Robaxin] 500 mg PO TID PRN 10/27/15 [History] Nitroglycerin [Nitrostat] 0.4 mg SL Q5M PRN 10/27/15 [History] Polyethylene Glycol 3350 [MiraLAX bowel prep] 17 gm PO DAILY PRN 10/27/15 [ History] Albuterol Neb [Proventil Neb] 2.5 mg IH QID PRN 12/14/16 [History] Docusate [Colace] 100 mg PO BID 12/14/16 [History] Gabapentin [Neurontin] 400 mg PO BID 12/14/16 [History] Gabapentin [Neurontin] 600 mg PO HS 12/14/16 [History] Losartan Potassium [Cozaar] 50 mg PO DAILY 12/14/16 [History] Aspirin Enteric Coated [Aspirin EC] 81 mg PO DAILY #30 tablet. 12/16/16 [Rx] Budesonide/Formoterol 160/4.5 [Symbicort 160/4.5] 2 puff IH BIDR 03/24/17 [ History] Furosemide [Lasix] 40 mg PO DAILY 03/24/17 [History] Metoprolol XL (24 HR) Succ [Toprol Xl] 50 mg PO DAILY 03/24/17 [History] Isosorbide MONOnitrate (24 HR) [Imdur] 180 mg PO HS #90 tab.er.24h 03/26/17 [Rx] Atorvastatin [Lipitor] 10 mg PO HS 01/23/18 [History] Linagliptin [Tradjenta] 5 mg PO DAILY 01/23/18 [History] Potassium Chloride [Klor-Con 10] 10 meq PO DAILY 01/23/18 [History] Tamsulosin [Flomax] 0.4 mg PO DAILY 01/23/18 [History] Tiotropium [Spiriva] 18 mcg IH 0700 01/23/18 [History] Cholecalciferol (D-3) [Vitamin D] 1,000 unit PO DAILY tablet 01/25/18 [Rx] Clopidogrel [Plavix] 75 mg PO DAILY tablet 01/25/18 [Rx] 3 Allergy/AdvReac Type Severity Reaction Status Date / Time orphenadrine [From Norflex] Allergy Rash Verified 01/22/18 17:14 ropinirole AdvReac Unknown Verified 01/22/18 17:14 Constitutional: Present: fatigue, weakness. Absent: anorexia, chills, fever(s) , headache(s), night sweats, weight loss Eyes: Present: blind spots, blurry vision Additional comments: chronic, h/o glaucoma and cataracts per patient Cardiovascular: Absent: chest pain, irregular heart rhythm, palpitations Respiratory: Absent: cough, dyspnea Gastrointestinal: Absent: abdominal pain, change in bowel habits, dysphagia, hematemesis, hematochezia, melena, nausea, vomiting Additional comments: denies dysuria or hematuria Musculoskeletal: Present: muscle weakness Integumentary: Present: as per HPI, skin ulcer Neurological: Present: as per HPI, abnormal speech, numbness, weakness Hematologic/Lymphatic: Present: as per HPI Oncology - Exam - Constitutional Vitals: Temp Pulse Resp BP Pulse Ox 97.6 F 67 20 158/60 95 01/23/18 11:03 01/23/18 11:03 01/23/18 11:03 01/23/18 11:03 01/23/18 11:03 General appearance: cooperative, no acute distress, no febrile - Head Head exam: Present: atraumatic - ENT ENT exam: Present: mucous membranes moist - Respiratory Respiratory exam: Present: CTAB. Absent: respiratory distress - Cardiovascular Cardiovascular exam: Present: RRR, +S1, +S2 - GI/Abdominal GI/Abdominal exam: Present: normal bowel sounds, soft. Absent: tenderness - Extremities Exam Extremities exam: Absent: calf tenderness Additional comments: trace edema BLE - Neurological Exam Neurological exam: Present: alert, oriented X3, no focal deficits, strengths equal and symetr throughout, speech deficit (slurred speech) - Psychiatric Psychiatric exam: Present: normal affect, normal mood - Skin Skin exam: Present: dry, normal color, warm Additional comments: Bilat heel boots, wounds nt observed at this time-per wound care record patient has stage III ulcer right medial heel and blister to left medial heel Consult Discharge Plan - Plan Instructions: Transient Ischemic Attack (DC), Chronic Hypertension (DC) Additional Instructions: Please follow up with your PCP [facility] for a follow up visit. Return to the ER immediately if your symptoms return or worsen. Resume your normal diet and actvities. Resume your normal home medications and make sure that you take your aspirin and Plavix every day. Follow-up appointments: If there is not an appointment listed below, please call your physician and schedule a follow-up appointment. If you have congestive heart failure and your symptoms return, make an appointment with your physician. Medication List: Carry an up to date list of medications you are taking at all time. We have given you an updated medication list including any new medications that you have been prescribed. Please provide that list to your primary provider Symptoms: If your condition changes or you experience any of the following symptoms, notify your physician immediately: Unusual or worsening pain, fever, persistent nausea and vomiting, bleeding, increase in swelling (especially in your legs), sudden weight gain, extreme dizziness, chest pain, increased drainage or redness from a wound or incision. Go to the emergency department if you experience a problem with breathing. Weights: If you have a history of swelling or shortness of breath, weigh yourself daily and notify your physician if you have a weight gain of two or more pounds in one day or 5 or more pounds in a week. If you experience any of the warning signs for stroke: Sudden numbness or weakness of the face, arm or leg; especially on one side of the body, sudden confusion, trouble speaking or understanding, sudden trouble seeing in one or both eyes, sudden trouble walking, dizziness, loss of balance or coordination, sudden sever headache with no cause; Call 911 or go to the emergency room. Stroke is a medical emergency. Some risk factors for stroke: Age, cigarette smoking, diabetes, excessive alcohol consumption, family history , high blood pressure, overweight, physical inactivity, prior stroke, heart attack, diagnosis of carotid artery stenosis or other artery disease. If you smoke, STOP: Smoking or tobacco use significantly increases your risk of heart and lung disease. Your chance of disease greatly increases if you continue to smoke. For more information, call the [employer] [facility] quit line for smoking cessation 3-160- -NOW ( ) Referrals: [facility],PCP [Primary Care Provider] - <Jakub Casillas - Last Filed: 01/25/18 17:53> Date of Encounter: 01/25/18 - Data of Consult Requesting Physician: Del De La Cruz MD Primary Care Provider: PCP [facility] - Consult Narrative History of present illness: Mr. Flecther is a 87 year old male Oncology - Exam - Constitutional Vitals: Temp Pulse Resp BP Pulse Ox 98.5 F 70 16 190/75 99 01/25/18 11:03 01/25/18 11:03 01/25/18 11:03 01/25/18 11:03 01/25/18 11:03 Oncology - Results Labs: Short CBC 01/24/18 01/25/18 01/25/18 Range/Units 19:54 01:18 08:06 WBC 7.7 (4.3-11.1) K/mcL Hgb 9.8 L 9.1 L 9.1 L (12.9-16.9) g/dL Hct 30.1 L 28.1 L 28.5 L (37.5-50.1) % Plt Count 213 (140-400) K/mcL Neutrophils # 4.7 (1.6-8.9) K/mcL 01/25/18 Range/Units 14:40 WBC (4.3-11.1) K/mcL Hgb 10.1 L (12.9-16.9) g/dL Hct 31.4 L (37.5-50.1) % Plt Count (140-400) K/mcL Neutrophils # (1.6-8.9) K/mcL BMP 01/25/18 01:18 Sodium 137 Potassium 4.2 Chloride 103 Carbon Dioxide 28 BUN 41 H Creatinine 2.51 H Glucose 154 H Calcium 8.4 L - Attending Attestation 1. Anemia of chronic disease. This got worse in the last year or line hemoglobin was around 12 to December 2016 and slowly dropped to around 9-10 range Iron levels B12 folate TSH unremarkable He has chronic kidney disease stage III with creatinine around 2 and GFR around 24 area this is definitely playing a role. He may have underlying MDS. May consider bone marrow biopsy as an outpatient. But given his age and poor functional status may not change his outcome May try Procrit/Aranesp-type medication if hemoglobin drops below 9 2. Possible TIA type symptoms improving neurology involved. MRI brain not done because of pacemaker. CT angiogram not done because of the elevated creatinine
--- NOTE | 2018-01-23 14:59 | Neurology - Consult Note ---
Date of Encounter: 01/24/18 Time of Encounter: 07:45 Assessment and Plan (1) TIA (transient ischemic attack) Current Visit: Yes Status: Acute Was been admitted to the symptoms perhaps of a TIA no significant new abnormalities noted unable to get an MRI Recommend a stroke workup continue on antiplatelet therapy monitor her blood pressure monitor for any cardiac arrhythmias other treatment is as per primary team Qualifiers: Transient cerebral ischemia type: unspecified Qualified Code(s): G45.9 - Transient cerebral ischemic attack, unspecified History of Present Illness HPI: Mr. Fletcher is a 87 year old male with PMH of CHF, CAD s/p stent and pacemaker, COPD, diabetes, hypertension, hyperlipidemia, and CKD stage IV, presented the emergency department with concerns for possible CVA. he has 3 day history of intermittent left upper extremity weakness. He was evaluated at [facility] for these symptoms yesterday, but they had resolved. He reports that he had left upper extremity weakness again this morning around 0800, but his symptoms resolved about an hour later after he exercises his hand. He reports some associated confusion, generalized fatigue, and slurred speech. Upon chart review there is also concern for some facial drooping. He denies any current symptoms. He states that he feels like his legs are always weak, and he uses a wheelchair due to prior back injury and problems with his feet. Denies changes in leg weakness. He denies fevers, chills, headache, change in vision, trouble swallowing, loss of sensation, numbness, tingling, neck pain, chest pain, dyspnea, cough, abdominal pain, nausea, vomiting, change in bowels, dysuria, or leg pain/swelling. Past Med Surg Social Fam HX - Past Medical History Medical history: CHF, COPD, CVA, diabetes, hyperlipidemia, hypertension, malignancy, renal disease, other Psychiatric history: no psych history - Past Surgical History Surgical History: angioplasty/stent, cholecystectomy, pacemaker/AICD, other - Social History Smoking Status: Former smoker Smokeless Tobacco Status: No Alcohol use: none Drug use: none - Family History Father Adopted: No Family Member Ethnicity: Non- Living Status: Hx Family Cardiac Disorders: Yes Hx Family Respiratory Disorders: No Hx Family Cancer: No Hx Family GI Disorders: No Hx Family Endocrine Disorder: No Hx Family Neuromuscular Disorders: No Hx Family Neurologic Disorders: Yes Hx Family HEENT Disorders: No Hx Family Autoimmune Disorders: No Medications and Allergies Albuterol Sulfate [Albuterol Inhaler] 2 puff IH QID PRN 09/24/15 [History] Carboxymethylcellulose Sodium [Refresh Plus] 1 drop BOTH EYES QID 09/24/15 [ History] Insulin Glargine [Lantus] 24 units SQ QAM 09/24/15 [History] Omeprazole [PriLOSEC] 20 mg PO DAILY 09/24/15 [History] Pyridoxine HCl [Vitamin B-6] 50 mg PO DAILY 09/24/15 [History] Methocarbamol [Robaxin] 500 mg PO TID PRN 10/27/15 [History] Nitroglycerin [Nitrostat] 0.4 mg SL Q5M PRN 10/27/15 [History] Polyethylene Glycol 3350 [MiraLAX bowel prep] 17 gm PO DAILY PRN 10/27/15 [ History] Albuterol Neb [Proventil Neb] 2.5 mg IH QID PRN 12/14/16 [History] Docusate [Colace] 100 mg PO BID 12/14/16 [History] Gabapentin [Neurontin] 400 mg PO BID 12/14/16 [History] Gabapentin [Neurontin] 600 mg PO HS 12/14/16 [History] Losartan Potassium [Cozaar] 50 mg PO DAILY 12/14/16 [History] Aspirin Enteric Coated [Aspirin EC] 81 mg PO DAILY #30 tablet. 12/16/16 [Rx] Budesonide/Formoterol 160/4.5 [Symbicort 160/4.5] 2 puff IH BIDR 03/24/17 [ History] Furosemide [Lasix] 40 mg PO DAILY 03/24/17 [History] Metoprolol XL (24 HR) Succ [Toprol Xl] 50 mg PO DAILY 03/24/17 [History] Isosorbide MONOnitrate (24 HR) [Imdur] 180 mg PO HS #90 tab.er.24h 03/26/17 [Rx] Atorvastatin [Lipitor] 10 mg PO HS 01/23/18 [History] Linagliptin [Tradjenta] 5 mg PO DAILY 01/23/18 [History] Potassium Chloride [Klor-Con 10] 10 meq PO DAILY 01/23/18 [History] Tamsulosin [Flomax] 0.4 mg PO DAILY 01/23/18 [History] Tiotropium [Spiriva] 18 mcg IH 0700 01/23/18 [History] 3 Allergy/AdvReac Type Severity Reaction Status Date / Time orphenadrine [From Norflex] Allergy Rash Verified 01/22/18 17:14 ropinirole AdvReac Unknown Verified 01/22/18 17:14 All Systems: The remainder of the systems were reviewed and are negative Physical Examination - Vital Signs Vital Signs: Initial Vital Signs Temp Pulse Resp BP Pulse Ox 97.9 F 84 14 129/78 96 01/22/18 17:20 01/22/18 17:20 01/22/18 17:20 01/22/18 17:20 01/22/18 17:20 - Exam Exam: GENERAL: Comfortable in no acute distress HEENT: Normal LUNGS: CTA HEART: RRR, S1 S2 Audible, no murmur EXTREMITIES: No Pedal edema. DETAILED NEUROLOGICAL EXAMINATION: MENTAL STATUS: Oriented to person, place, date and situation. Memory: knows the President, Aware of recent events Recent Memory Intact Cranial Nerve Examination: CN - II: Visual Acuity, Field of Vision Normal, Fundus examination: No disk edema, Pupils- size shape reaction to light and accommodation: All normal. CN III, IV, : External ocular movements were intact, Pupils were reactive, Nodrooping of the eyelids CN V: Sensation over the face to light touch and pinprick all normal. Corneal reflexes not tested, jaw jerk normal. CN VII: No facial asymmetry, no flattening of nasolabial folds, no difficulty in closing the eyes, no loss of forehead wrinkles, no difficulty in eye-closure, frowning raising eyebrows. CNVIII: No significant hearing loss CN IX, X: Uvula centralized not deviated, Gag reflex: Not tested CN X1: Sternocleidomastoid, trapezius, normal or evidence of any weakness. CN X11: No Dysarthria, no wasting or fibrilation f tongue muscles, no deviation, tongue muscle strength normal. Motor examination: No hypertrophy, tone was normal, power grade 0-5 Upper limbs Proximal- No difficulty in lifting the arms above the head. Distal- Noweakness in distal muscles On formal testing 5/5 all over Lower limbs Proximal- No difficulty in getting up from the sitting position Distal- No difficulty in walking On formal testing 5/5 all over Coordination: [id number] normal. Target pursuit normal finger tapping normal, Rapid alternating moment of wrist normal Sensory system: Superficial sensations- Touch normal. Pain- Pinprick, Temperature all normal, Deep sensation normal, Joint position sense normal. Cortical sensation, Tactile discrimination, localization and extinction all normal. Deep tendon reflexes. Symmetrical bilateral, No evidence of Babinski. No sign of meningeal irritation Gait Examination: Deferred Results - Laboratory Findings CBC and BMP: 01/24/18 04:16 01/24/18 04:16 Abnormal lab findings: Abnormal lab results RBC 3.09 M/mcL (4.19-5.50) L 01/23/18 03:08 Hgb 9.0 g/dL (12.9-16.9) L 01/23/18 03:08 Hct 29.3 % (37.5-50.1) L 01/23/18 03:08 MCHC 30.7 g/dL (31.6-35.5) L 01/23/18 03:08 Carbon Dioxide 30 mEq/L (23-29) H 01/23/18 03:08 BUN 47 mg/dL (8-23) H 01/23/18 03:08 Creatinine 2.98 mg/dL (0.70-1.30) H 01/23/18 03:08 Est GFR ( Amer) 24 (> 60) L 01/23/18 03:08 Est GFR (Non-Af Amer) 20 (> 60) L 01/23/18 03:08 Glucose 187 mg/dL (70-105) H 01/23/18 03:08 POC Glucose 208 (58-89) H 01/22/18 22:38 Calcium 8.3 mg/dL (8.6-10.3) L 01/23/18 03:08 Phosphorus 4.7 mg/dL (2.7-4.5) H 01/23/18 03:08 Magnesium 2.9 mg/dL (1.6-2.6) H 01/23/18 03:08 Urine Glucose (UA) 100 mg/dL (Normal) H 01/22/18 17:45 Consult Discharge Plan - Plan [facility]errals: [facility] [Primary Care Provider] -
[2018-01-23 16:11] LABS: % Iron Saturation 21 % (20-55); Ferritin 195 ng/ml (20-250); Iron 41 mcg/dL (65-175); Lactate Dehydrogenase 173 Units/L (140-271); Transferrin 137 mg/dL (203-362)
[2018-01-23 16:36] LABS: Folate 15.9 ng/mL (3.0-16.0)
[2018-01-23] MEDS: Isosorbide MONOnitrate (24 HR) 60 MG TAB.ER.24H PO SCH (21:18)
[2018-01-23] MEDS: Insulin DETEMIR 100 UNIT/ML X5UNITS SQ SCH (21:18)
[2018-01-24 04:41] LABS: Hematocrit 27.7 % (37.5-50.1); Hemoglobin 8.9 g/dL (12.9-16.9); Mean Corpuscular HGB Conc 32.1 g/dL (31.6-35.5); Mean Corpuscular Hemoglobin 29.6 pg (28.0-33.3); Mean Platelet Volume 10.4 fL (9.4-12.4); Platelet Count 198 K/mcL (140-400); Red Blood Count 3.01 M/mcL (4.19-5.50); Red Cell Distribution Width 13.5 % (11.5-14.5)
[2018-01-24 05:00] LABS: Calcium 8.5 mg/dL (8.6-10.3); Potassium 4.3 mEq/L (3.5-5.1)
[2018-01-24] MEDS: *HR* Heparin 5,000 UNIT/ML VIAL SQ SCH ×3 (06:03→21:30)
[2018-01-24] MEDS: Insulin LISPRO 300 UNITS/3 ML VIAL SQ SCH ×4 (08:28→21:31)
[2018-01-24] MEDS: Aspirin Enteric Coated 81 MG Tablet PO SCH (08:32)
[2018-01-24] MEDS: Metoprolol XL (24 HR) Succ 50 MG TAB.ER.24H PO SCH (08:32)
[2018-01-24] MEDS: Cholecalciferol (D-3) 1,000 UNIT TABLET PO SCH (08:32)
[2018-01-24] MEDS: Furosemide 40 MG TABLET PO SCH (08:34)
[2018-01-24] MEDS: Budesonide/Formoterol 160/4.5 MDI IH SCH ×2 (10:18→20:05)
--- NOTE | 2018-01-24 17:05 | Neurology Progress Note ---
Date of Encounter: 01/24/18 Time of Encounter: 07:10 Assessment and Plan (1) TIA (transient ischemic attack) Current Visit: Yes Status: Acute Continue on antiplatelet therapy there was a concern that he may had in atrial fibrillation so far sinus rhythm but it was suggested to continue to monitor because her symptoms could be due to A. fib especially when seemed to be more like a TIA type symptoms. Echo results and carotid are pending. Continue to monitor the blood pressure and also for any arrhythmias if workup is negative and patient is stable could be discharged after physical therapy evaluation to make sure that his gait and balance is a stable Qualifiers: Transient cerebral ischemia type: unspecified Qualified Code(s): G45.9 - Transient cerebral ischemic attack, unspecified Subjective Interval history: Stable no other new acute symptoms or problems unable to get an MRI because of the pacemaker also not able to get a CT angiogram because of the creatinine. Somehow he has a soft tissue CT instead of CT angiogram CT scan did not show any acute stroke. Continue to be on antiplatelet therapy Objective - Constitutional Vitals: Temp Pulse Resp BP Pulse Ox 99.1 F 59 20 171/65 98 01/24/18 15:33 01/24/18 15:33 01/24/18 15:33 01/24/18 15:33 01/24/18 15:33 Results - Laboratory Findings CBC and BMP: 01/24/18 04:16 01/24/18 04:16 Abnormal lab findings: Abnormal lab results RBC 3.01 M/mcL (4.19-5.50) L 01/24/18 04:16 Hgb 8.9 g/dL (12.9-16.9) L 01/24/18 04:16 Hct 27.7 % (37.5-50.1) L 01/24/18 04:16 BUN 45 mg/dL (8-23) H 01/24/18 04:16 Creatinine 2.69 mg/dL (0.70-1.30) H 01/24/18 04:16 Est GFR ( Amer) 27 (> 60) L 01/24/18 04:16 Est GFR (Non-Af Amer) 23 (> 60) L 01/24/18 04:16 POC Glucose 179 (58-89) H 01/23/18 20:28 Calcium 8.5 mg/dL (8.6-10.3) L 01/24/18 04:16 Phosphorus 4.7 mg/dL (2.7-4.5) H 01/23/18 03:08 Magnesium 2.9 mg/dL (1.6-2.6) H 01/23/18 03:08 Iron 41 mcg/dL (65-175) L 01/23/18 15:16 Transferrin 137 mg/dL (203-362) L 01/23/18 15:16 B-Natriuretic Peptide 741 pg/mL (Less than 100) H 01/24/18 04:16 Urine Glucose (UA) 100 mg/dL (Normal) H 01/22/18 17:45 Consult Discharge Plan - Plan Referrals: [facility] [Primary Care Provider] -
--- NOTE | 2018-01-24 19:19 | Internal Med Progress Note ---
Date of Encounter: 01/24/18 Time of Encounter: 09:30 - Assessment and plan (1) TIA (transient ischemic attack) Current Visit: Yes Status: Acute Assessment and plan: Patient reports intermittent left arm numbness and weakness in the morning upon awakening the last 3 days. Symptoms would resolve after 30 minutes. Patient has had a normal neurological exam since arrival. There are no focal deficits. CT of the head 2 showed no acute abnormalities, but there was a mild cerebral atrophy and mild periventricular white matter small vessel ischemic disease. Echo shows LVEF of 60% with indeterminate diastolic function, mild MR, mild TR. Carotid Dopplers are now ordered and pending. Continue aspirin and statin Continue neuro checks Pt cannot have an MRI due to pacemaker Patient has been evaluated by neurology, recommends continuing antiplatelet therapy, continue to monitor blood pressure and monitor for arrhythmias. PT/OT have identified and needs and no further services recommended at this time. Head CT 01/23/18 15:00 IMPRESSION: No acute intracranial abnormality. D/ / Curt Ribeiro / Curt Ribeiro Interpreting Provider: Curt Ribeiro Echocardiogram 01/24/18 12:40 Impressions: LVEF 60%. Indeterminate diastolic function. Moderate concentric left ventricular hypertrophy. Normal right ventricular structure and function. Mild mitral regurgitation. Mild tricuspid regurgitation. Mild pulmonary hypertension. Left Ventricular Wall Motion: Rest Echo Findings All wall segments showed normal motion. Findings: Study Quality * Technically adequate exam. ECG Findings * Paced rhythm. Left Ventricle * LVEF 60%. * Indeterminate diastolic function. * Moderate concentric left ventricular hypertrophy. Right Ventricle * Normal right ventricular structure and function. Left Atrium * Severely dilated left atrium. Right Atrium * Normal right atrial size. Mitral Valve * Normal mitral valve structure. * No mitral stenosis. * Mild mitral regurgitation. Aortic Valve * No aortic regurgitation. * Trileaflet aortic valve. * Mildly thickened and calcified aortic valve leaflets. * No aortic stenosis. Tricuspid Valve * Tricuspid valve not well visualized. * Mild tricuspid regurgitation. * Estimated RA pressure is 3 mmHg. * Estimated RVSP is 42 mmHg. * Mild pulmonary hypertension. Pulmonic Valve * Pulmonic valve is not well visualized. * No pulmonic stenosis. * No pulmonic regurgitation. Pulmonary Artery * Pulmonary artery not well visualized. Aorta * Normally sized aortic root. Pericardium * There is no pericardial effusion present. Device lead * A device lead was visualized in the right atrium and right ventricle. IVC * The IVC is not dilated. Qualifiers: Transient cerebral ischemia type: unspecified Qualified Code(s): G45.9 - Transient cerebral ischemic attack, unspecified (2) Abnormal chest xray Current Visit: Yes Status: Acute Assessment and plan: Chest x-ray showed new septal right upper lobe airspace disease, either due to atelectasis or pneumonia. Patient will need a follow up chest x-ray in 8 weeks. Continue incentive spirometry Patient is afebrile, no leukocytosis, continue to monitor for signs of sirs or sepsis. (3) Anemia Current Visit: Yes Status: Acute Assessment and plan: Hemoglobin is 8.9 today. Patient with baseline anemia of chronic disease including chronic kidney disease stage IV and CHF. Type and screen have been ordered. Serial troponins have been ordered for overnight. Urine is negative for blood. Stool occult blood is to ordered and pending. Iron is mildly decreased at 41, percent saturation is within normal limits, ferritin is normal. Folate and B12 are also within normal limits. Qualifiers: Anemia type: unspecified type Qualified Code(s): D64.9 - Anemia, unspecified (4) CKD (chronic kidney disease) stage 4, GFR 15-29 ml/min Current Visit: Yes Status: Chronic Assessment and plan: Renal function is improving. Serum creatinine is 2.69, GFR is 23. Continue to avoid nephrotoxins and monitor labs. (5) COPD (chronic obstructive pulmonary disease) Current Visit: Yes Status: Chronic Assessment and plan: No acute exacerbation. Continue home medications. Qualifiers: COPD type: emphysema Emphysema type: unspecified Qualified Code(s): J43.9 - Emphysema, unspecified (6) Diabetes mellitus Current Visit: Yes Status: Chronic Assessment and plan: Chronic. Continue sliding scale insulin, Accu-Cheks before meals and at bedtime , diabetic diet. Diabetes is poorly controlled with an A1c of 8.5%. 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 Patient appears to be euvolemic. Continue I and O, daily weights BNP 741 Continue home Lasix Echocardiogram showed an LVEF of 60% with indeterminant diastolic function, mild MR, mild TR. Carotids are ordered and pending. Continue telemetry Qualifiers: Heart failure chronicity: chronic Qualified Code(s): I50.32 - Chronic diastolic (congestive) heart failure (8) DVT prophylaxis Current Visit: Yes Status: Acute Assessment and plan: Heparin (9) Hypertension Current Visit: Yes Status: Chronic Assessment and plan: Chronic. Continue home medications. Well controlled in hospital. Hydralazine 10 mg IV every 6 hours as needed for systolic blood pressure greater than 180. Qualifiers: Hypertension type: essential hypertension Qualified Code(s): I10 - Essential (primary) hypertension - Time Spent With Patient less than 15 minutes - Subjective Interval history: Patient was seen and evaluated at bedside at 9:30 AM. Patient reports poor by mouth intake normally, have encouraged him to continue fluids by mouth. Patient reports he lives at home with his . He states that she has Alzheimer's and is difficult to care for at times. He reports that he normally eats around inside his home in a wheelchair with brief periods of ambulation when he is unable to get the wheelchair through any doorways. He denies any headache, blurred vision, dizziness, nausea or vomiting. He denies abdominal pain chest pain, shortness of breath. - Constitutional Vitals: Temp Pulse Resp BP Pulse Ox 99.3 F 68 16 153/57 92 01/24/18 18:14 01/24/18 18:14 01/24/18 18:14 01/24/18 18:14 01/24/18 18:14 General appearance: Present: cooperative, A&O X 3, pleasant, no acute distress, answers questions appropriately - Head Head exam: Present: atraumatic, normal inspection, normocephalic - Eye Eye exam: Present: normal appearance, conjuntiva pink, sclera anicteric - Neck Neck exam general surgery: Present: supple, trachea midline. Absent: lymphadenopathy - Respiratory Respiratory exam: Present: CTAB. Absent: accessory muscle use, chest wall tenderness, rales, respiratory distress, rhonchi, wheezes - Cardiovascular Cardiovascular exam: Present: RRR, +S1, +S2. Absent: diastolic murmur, gallop, rubs, systolic murmur - GI/Abdominal GI/Abdominal exam: Present: normal bowel sounds, soft, no peritoneal signs. Absent: distended, hepatomegaly, tenderness - Extremities Exam Extremities exam: Present: normal capillary refill, normal inspection, warm, radial pulses palpable and symmetrical. Absent: calf tenderness, cyanotic, pedal edema, tenderness - Neurological Exam Neurological exam: Present: alert, oriented X3, no focal deficits. Absent: facial droop, speech deficit - Skin Skin exam: Present: dry, intact, normal color, warm. Absent: rash Internal Medicine: Result - Labs CBC & Chem 7: 01/24/18 04:16 01/24/18 04:16 Labs: Short CBC 01/24/18 Range/Units 04:16 WBC 7.6 (4.3-11.1) K/mcL Hgb 8.9 L (12.9-16.9) g/dL Hct 27.7 L (37.5-50.1) % Plt Count 198 (140-400) K/mcL BMP 01/24/18 04:16 Sodium 137 Potassium 4.3 Chloride 103 Carbon Dioxide 29 BUN 45 H Creatinine 2.69 H Glucose 79 Calcium 8.5 L - Impressions Impressions Echocardiogram 01/24/18 12:40 Impressions: LVEF 60%. Indeterminate diastolic function. Moderate concentric left ventricular hypertrophy. Normal right ventricular structure and function. Mild mitral regurgitation. Mild tricuspid regurgitation. Mild pulmonary hypertension. Left Ventricular Wall Motion: Rest Echo Findings All wall segments showed normal motion. Findings: Study Quality * Technically adequate exam. ECG Findings * Paced rhythm. Left Ventricle * LVEF 60%. * Indeterminate diastolic function. * Moderate concentric left ventricular hypertrophy. Right Ventricle * Normal right ventricular structure and function. Left Atrium * Severely dilated left atrium. Right Atrium * Normal right atrial size. Mitral Valve * Normal mitral valve structure. * No mitral stenosis. * Mild mitral regurgitation. Aortic Valve * No aortic regurgitation. * Trileaflet aortic valve. * Mildly thickened and calcified aortic valve leaflets. * No aortic stenosis. Tricuspid Valve * Tricuspid valve not well visualized. * Mild tricuspid regurgitation. * Estimated RA pressure is 3 mmHg. * Estimated RVSP is 42 mmHg. * Mild pulmonary hypertension. Pulmonic Valve * Pulmonic valve is not well visualized. * No pulmonic stenosis. * No pulmonic regurgitation. Pulmonary Artery * Pulmonary artery not well visualized. Aorta * Normally sized aortic root. Pericardium * There is no pericardial effusion present. Device lead * A device lead was visualized in the right atrium and right ventricle. IVC * The IVC is not dilated. Consult Discharge Plan - Plan [facility]errals: [facility] [Primary Care Provider] -
[2018-01-24 20:17] LABS: Hematocrit 30.1 % (37.5-50.1); Hemoglobin 9.8 g/dL (12.9-16.9)
[2018-01-24] MEDS ORDERED: Gabapentin 300 MG CAPSULE PO SCH (21:00)
[2018-01-24] MEDS ORDERED: Gabapentin 400 MG CAPSULE PO SCH (21:00)
[2018-01-24] MEDS: Isosorbide MONOnitrate (24 HR) 60 MG TAB.ER.24H PO SCH (21:28)
[2018-01-24] MEDS: Artificial Tears SOLN 15 ML BOTTLE BOTH EYES SCH (21:30)
[2018-01-24] MEDS: Insulin DETEMIR 100 UNIT/ML X5UNITS SQ SCH (21:30)
[2018-01-25 01:42] LABS: Basophils # 0.1 K/mcL (0.0-0.2); Basophils % 1.2 %; Eosinophils # 0.3 K/mcL (0.0-0.6); Hematocrit 28.1 % (37.5-50.1); Hemoglobin 9.1 g/dL (12.9-16.9); Immature Granulocytes % 0.4 % (0-4); Lymphocytes # 1.9 K/mcL (0.6-4.6); Lymphocytes % 24.8 %; Mean Corpuscular HGB Conc 32.4 g/dL (31.6-35.5); Mean Corpuscular Hemoglobin 29.8 pg (28.0-33.3); Mean Corpuscular Volume 92.1 fL (83.0-100.0); Mean Platelet Volume 10.7 fL (9.4-12.4); Monocytes # 0.6 K/mcL (0.0-1.3); Monocytes % 8.4 %; Neutrophils # 4.7 K/mcL (1.6-8.9); Platelet Count 213 K/mcL (140-400); Red Blood Count 3.05 M/mcL (4.19-5.50); Red Cell Distribution Width 13.4 % (11.5-14.5); Segmented Neutrophils % 61.2 %
[2018-01-25 01:54] LABS: Calcium 8.4 mg/dL (8.6-10.3); Potassium 4.2 mEq/L (3.5-5.1)
[2018-01-25] MEDS: *HR* Heparin 5,000 UNIT/ML VIAL SQ SCH (06:04)
[2018-01-25] MEDS ORDERED: Tiotropium 18 MCG inhalation IH SCH (07:00)
[2018-01-25] MEDS: Budesonide/Formoterol 160/4.5 MDI IH SCH (07:50)
[2018-01-25] MEDS: Insulin LISPRO 300 UNITS/3 ML VIAL SQ SCH ×2 (07:59→11:59)
[2018-01-25] MEDS: Artificial Tears SOLN 15 ML BOTTLE BOTH EYES SCH ×2 (08:19→11:59)
[2018-01-25] MEDS: Cholecalciferol (D-3) 1,000 UNIT TABLET PO SCH (08:20)
[2018-01-25] MEDS: Furosemide 40 MG TABLET PO SCH (08:20)
[2018-01-25] MEDS: Aspirin Enteric Coated 81 MG Tablet PO SCH (08:20)
[2018-01-25] MEDS: Metoprolol XL (24 HR) Succ 50 MG TAB.ER.24H PO SCH (08:20)
[2018-01-25] MEDS ORDERED: Pyridoxine (B-6) 50 MG TABLET PO SCH (09:00)
[2018-01-25] MEDS ORDERED: Gabapentin 400 MG CAPSULE PO SCH (09:00)
[2018-01-25 09:31] LABS: Hematocrit 28.5 % (37.5-50.1); Hemoglobin 9.1 g/dL (12.9-16.9)
[2018-01-25 11:06] VITALS: BP 190/75
--- NOTE | 2018-01-25 13:54 | Discharge Summary ---
- NOTES TO OUTPATIENT PROVIDER Notes to Outpatient Provider: Pt did not stay to get results of his carotid dopplers. Pt states that he wanted to go home and will follow up with primary care. Pt also will need a repeat ches xray in 8 weeks for abnormal chest xray results (new subltle RUL airspace disease either due to atelectasis or pna.). Anemia of chronic disease, Hbg around 9 throughout visit. Orders not resulted at time of discharge: Pending orders 01/23/18 15:16 Haptoglobin Routine Protein Electrophoresis Routine Serum Free Light Chain [Calzada Lambda Qnt FLC w Ratio] Routine 01/24/18 19:28 EV carotid duplex imaging BI Routine 01/25/18 13:30 Hemoglobin and Hematocrit [HEME] Q6H Date of Encounter: 01/25/18 Time of Encounter: 08:30 - Discharge Diagnosis (1) TIA (transient ischemic attack) Priority: Primary Status: Acute Comments: Possiblly due to afib, continue antiplatelent therapy. Echo with pEF, indeterminate diastolic function, mild MR, mild TR and mild pulmonary HTN. Pt has a pacemaker so was unable to have an MRI. CT x 2 negative for acute intracranial abnormality. Pt has been seen by neurology and recommend that pt continue antiplatelet therapy. Pt has declined to stay for carotid dopplers and states that he just wants to go home where he is comfortable. Will continue ASA, statin, Plavix at discharge. Head CT 01/23/18 15:00 IMPRESSION: No acute intracranial abnormality. D/ / Curt Ribeiro / Curt Ribeiro Interpreting Provider: Curt Ribeiro Echocardiogram 01/24/18 12:40 Impressions: LVEF 60%. Indeterminate diastolic function. Moderate concentric left ventricular hypertrophy. Normal right ventricular structure and function. Mild mitral regurgitation. Mild tricuspid regurgitation. Mild pulmonary hypertension. Left Ventricular Wall Motion: Rest Echo Findings All wall segments showed normal motion. Findings: Study Quality * Technically adequate exam. ECG Findings * Paced rhythm. Left Ventricle * LVEF 60%. * Indeterminate diastolic function. * Moderate concentric left ventricular hypertrophy. Right Ventricle * Normal right ventricular structure and function. Left Atrium * Severely dilated left atrium. Right Atrium * Normal right atrial size. Mitral Valve * Normal mitral valve structure. * No mitral stenosis. * Mild mitral regurgitation. Aortic Valve * No aortic regurgitation. * Trileaflet aortic valve. * Mildly thickened and calcified aortic valve leaflets. * No aortic stenosis. Tricuspid Valve * Tricuspid valve not well visualized. * Mild tricuspid regurgitation. * Estimated RA pressure is 3 mmHg. * Estimated RVSP is 42 mmHg. * Mild pulmonary hypertension. Pulmonic Valve * Pulmonic valve is not well visualized. * No pulmonic stenosis. * No pulmonic regurgitation. Pulmonary Artery * Pulmonary artery not well visualized. Aorta * Normally sized aortic root. Pericardium * There is no pericardial effusion present. Device lead * A device lead was visualized in the right atrium and right ventricle. IVC * The IVC is not dilated. Qualifiers: Transient cerebral ischemia type: unspecified Qualified Code(s): G45.9 - Transient cerebral ischemic attack, unspecified (2) Abnormal chest xray Priority: Secondary Status: Acute Comments: Chest x-ray showed new septal right upper lobe airspace disease, either due to atelectasis or pneumonia. Patient will need a follow up chest x-ray in 8 weeks. Patient is afebrile, no leukocytosis, continue to monitor for signs of sirs or sepsis. (3) Anemia Priority: Secondary Status: Acute Comments: Hgb has remained stable, though decreased throughout visit. He has not required transfusion. Pt with baseline anemia of chronic disease, CKD IV and CHF. Urine is negative for blood, stool occult blood has been ordered and not collected. Iron is low at 41, Folate, B12, % sat, and ferretin all WNL. Recommend close follow up with PCP. Pt denies hematuria, BRBPR, hematochezia, or melena. Qualifiers: Anemia type: unspecified type Qualified Code(s): D64.9 - Anemia, unspecified (4) CKD (chronic kidney disease) stage 4, GFR 15-29 ml/min Priority: Secondary Status: Chronic Comments: Renal function has continued to improve, creatinine 2.51, GFR 24. Continue to avoid nephrotoxins. Follow-up with primary care. (5) COPD (chronic obstructive pulmonary disease) Priority: Secondary Status: Chronic Comments: No acute exacerbation. Lungs clear and diminished. Pt in no distress and not requiring supplemental 02. Continue home medications. Qualifiers: COPD type: emphysema Emphysema type: unspecified Qualified Code(s): J43.9 - Emphysema, unspecified (6) Diabetes mellitus Priority: Secondary Status: Chronic Comments: Chronic. Continue home medications and accucheck regimen. Diabetic diet. A1c 8.5% Qualifiers: Diabetes mellitus type: type 2 Diabetes mellitus [employer] insulin use: without jail use Diabetes mellitus complication status: with neurologic complications Diabetes mellitus complication detail: with polyneuropathy Qualified Code(s): E11.42 - Type 2 diabetes mellitus with diabetic polyneuropathy (7) Diastolic heart failure Priority: Secondary Status: Acute Comments: No acute exacerbation. Patient appears to be euvolemic. BNP was elevated on admission. Continue home dose of Lasix Echo showed LVEF of 60% with indeterminant diastolic function, mild MR, mild TR Carotids are ordered, have not been completed, patient is requesting to go home without completion. 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 Continue home medications. Blood pressures been well controlled. Qualifiers: Hypertension type: essential hypertension Qualified Code(s): I10 - Essential (primary) hypertension (9) DVT prophylaxis Priority: Secondary Status: Acute Comments: Heparin Hospital course: Mr. Fletcher is a 87 year old male - Time Spent with Patient Total time spent providing and/or coordinating discharge services: - Discharge Medications Home Medications: Albuterol Sulfate [Albuterol Inhaler] 2 puff IH QID PRN 09/24/15 [History] Carboxymethylcellulose Sodium [Refresh Plus] 1 drop BOTH EYES QID 09/24/15 [ History] Insulin Glargine [Lantus] 24 units SQ QAM 09/24/15 [History] Omeprazole [PriLOSEC] 20 mg PO DAILY 09/24/15 [History] Pyridoxine HCl [Vitamin B-6] 50 mg PO DAILY 09/24/15 [History] Methocarbamol [Robaxin] 500 mg PO TID PRN 10/27/15 [History] Nitroglycerin [Nitrostat] 0.4 mg SL Q5M PRN 10/27/15 [History] Polyethylene Glycol 3350 [MiraLAX bowel prep] 17 gm PO DAILY PRN 10/27/15 [ History] Albuterol Neb [Proventil Neb] 2.5 mg IH QID PRN 12/14/16 [History] Docusate [Colace] 100 mg PO BID 12/14/16 [History] Gabapentin [Neurontin] 400 mg PO BID 12/14/16 [History] Gabapentin [Neurontin] 600 mg PO HS 12/14/16 [History] Losartan Potassium [Cozaar] 50 mg PO DAILY 12/14/16 [History] Aspirin Enteric Coated [Aspirin EC] 81 mg PO DAILY #30 tablet.dr 12/16/16 [Rx] Budesonide/Formoterol 160/4.5 [Symbicort 160/4.5] 2 puff IH BIDR 03/24/17 [ History] Furosemide [Lasix] 40 mg PO DAILY 03/24/17 [History] Metoprolol XL (24 HR) Succ [Toprol Xl] 50 mg PO DAILY 03/24/17 [History] Isosorbide MONOnitrate (24 HR) [Imdur] 180 mg PO HS #90 tab.er.24h 03/26/17 [Rx] Atorvastatin [Lipitor] 10 mg PO HS 01/23/18 [History] Linagliptin [Tradjenta] 5 mg PO DAILY 01/23/18 [History] Potassium Chloride [Klor-Con 10] 10 meq PO DAILY 01/23/18 [History] Tamsulosin [Flomax] 0.4 mg PO DAILY 01/23/18 [History] Tiotropium [Spiriva] 18 mcg IH 0700 01/23/18 [History] Cholecalciferol (D-3) [Vitamin D] 1,000 unit PO DAILY tablet 01/25/18 [Rx] Clopidogrel [Plavix] 75 mg PO DAILY tablet 01/25/18 [Rx] Allergies/Adverse Reactions: 3 Allergy/AdvReac Type Severity Reaction Status Date / Time orphenadrine [From Norflex] Allergy Rash Verified 01/22/18 17:14 ropinirole AdvReac Unknown Verified 01/22/18 17:14 Date of admission: 01/23/18 12:50 Primary care physician: [facility] Discharging clinician: Lili Quick Anticipated date of discharge: 01/25/18 - Constitutional Vitals: Temp Pulse Resp BP Pulse Ox 98.5 F 70 16 190/75 99 01/25/18 11:03 01/25/18 11:03 01/25/18 11:03 01/25/18 11:03 01/25/18 11:03 General appearance: Present: cooperative, A&O X 3, pleasant, no acute distress, answers questions appropriately - Head Head exam: Present: atraumatic, normal inspection, normocephalic - Eye Eye exam: Present: normal appearance, conjuntiva pink, sclera anicteric - Neck Neck exam general surgery: Present: supple, trachea midline. Absent: lymphadenopathy, tenderness - Respiratory Respiratory exam: Present: CTAB. Absent: accessory muscle use, chest wall tenderness, rales, respiratory distress, rhonchi, wheezes - Cardiovascular Cardiovascular exam: Present: RRR, +S1, +S2. Absent: diastolic murmur, gallop, rubs, systolic murmur - GI/Abdominal GI/Abdominal exam: Present: normal bowel sounds, soft, no peritoneal signs. Absent: distended, hepatomegaly, tenderness - Extremities Exam Extremities exam: Present: normal capillary refill, normal inspection, warm, radial pulses palpable and symmetrical. Absent: calf tenderness, cyanotic, pedal edema, tenderness - Neurological Exam Neurological exam: Present: alert, oriented X3, no focal deficits. Absent: facial droop, speech deficit - Skin Skin exam: Present: dry, intact, normal color, warm. Absent: rash - Patient Status Disposition: Home, Self-Care Condition: Good Functional capacity at discharge: uses cane/walker Overall status at discharge: patient is progressing back to baseline - Discharge Instructions Follow Up With: [facility] [Primary Care Provider] - Additional Instructions: Please follow up with your PCP [facility] for a follow up visit. Return to the ER immediately if your symptoms return or worsen. Resume your normal diet and actvities. Resume your normal home medications and make sure that you take your aspirin and Plavix every day. - Diet and Activity Activity: resume usual activities as tolerated Diet: advance to your usual diet
[2018-01-25 15:04] LABS: Hematocrit 31.4 % (37.5-50.1); Hemoglobin 10.1 g/dL (12.9-16.9)
[2018-01-26 05:28] LABS: Kappa Qnt Free Light Chains 10.4 mg/dL (0.33-1.94); Lambda Qnt Free Light Chains 7.42 mg/dL (0.57-2.63)
[2018-01-26 18:58] LABS: Alpha 2 Globulin (PEP) 0.77 g/dL (0.48-1.05)
[2018-01-27 10:04] LABS: IFE Reflexed IFE Done; Immunoglobulin A 462 mg/dL (68-408); Immunoglobulin G 1330 mg/dL (768-1632); Immunoglobulin M 44 mg/dL (35-263)
== END 2018-01-25 15:12 | disposition home or self-care (01) | DRG 69 ==
LOC: 3BNU 17:12 → EMEROO 17:12 → 3BNU 20:05
PROVIDERS: ADMIT Nurse Practitioner; ATTEND Internal Medicine